=== PATIENT | male | born 1960 | race Caucasian/White ===

== ENCOUNTER 2017-06-17 18:50 | Observation (INO) | payer OTHER ==
[~2017-06-17] VITALS: Ht 172.7 cm; Wt 80.7 kg
[2017-06-17 19:03] VITALS: BP 148/69; PULSE 96; RESP 18; TEMP 98.2; O2SAT 95
[2017-06-17 19:34] LABS: BASOPHIL # 0.1 TH/MM3 (0-0.2); BASOPHIL % 0.7 % (0.0-2.0); EOSINOPHIL # 0.2 TH/MM3 (0-0.4); EOSINOPHIL % 2.2 % (0.0-4.0); HEMATOCRIT 36.9 % (39.0-51.0); HEMO FLAGS DIFF FINAL; LYMPH % 23.7 % (9.0-44.0); LYMPHOCYTE # 1.8 TH/MM3 (1.0-4.8); MEAN CELL VOLUME 84.9 FL (80.0-100.0); MEAN CORPUSCULAR HEMOGLOBIN 28.5 PG (27.0-34.0); MEAN CORPUSCULAR HGB CONC 33.5 % (32.0-36.0); MONO % 7.4 % (0.0-8.0); PLATELET COUNT 175 TH/MM3 (150-450); RED BLOOD COUNT 4.35 MIL/MM3 (4.50-5.90); RED CELL DISTRIBUTION WIDTH 13.9 % (11.6-17.2); WHITE BLOOD COUNT 7.5 TH/MM3 (4.0-11.0)
--- NOTE | 2017-06-17 19:40 | PD ---
HPI Chief Complaint: Psychiatric Symptoms Time Seen by Provider: 19:14 Travel History International Travel<30 days: No Contact w/Intl Traveler<30days: No Traveled to known affect area: No History of Present Illness HPI 56-year-old male presents to the emergency department under Ybarra act by physician for psychiatric evaluation. Patient has history of expressive aphasia. Apparently, he has been combative and aggressive at the facility that he lives in. The patient can answer yes or no questions, but cannot give any other meaningful history. Patient has history of hypertension, hyperlipidemia, psychosis, dementia and behavioral disturbances, bipolar disorder, type 2 diabetes, expressive aphasia. History was obtained through records sent from facility. PFSH Past Medical History Bipolar Disorder: Yes Anxiety: Yes Depression: Yes Diabetes: Yes Patient Takes Glucophage: No Hypertension: Yes Social History Alcohol Use: No Tobacco Use: No Substance Use: No Allergies-Medications (Allergen,Severity, Reaction): Coded Allergies: No Known Allergies (Unverified , 06/17/17) Reported Meds & Prescriptions Reported Meds & Active Scripts Active Reported Quetiapine (Quetiapine Fumarate) 50 Mg Tab 50 Mg PO DAILY Quetiapine (Quetiapine Fumarate) 25 Mg Tab 300 Mg PO HS Metformin (Metformin HCl) 500 Mg Tab 500 Mg PO BIDPC With meals Lorazepam 1 Mg Tab 1 Mg ID Q6H PRN Keppra (Levetiracetam) 500 Mg Tab 500 Mg PO BID Humalog Inj (Insulin Human Lispro) 1,000 Unit/10 Ml Vial 5-25 Units SQ ACHS Max dose at bedtime:( )units; sugars < 70,(0)units; sugars 150-199,(5)units; sugars 200-249,(10)units; sugars 250-299,(15)units; sugars 300-349,(20)units; sugars more than 349,(25)units. Diphenhydramine (Diphenhydramine HCl) 25 Mg Tab 25 Mg PO Q6H PRN Depakote Sprinkles (Divalproex Sodium) 125 mg Cap 125 Mg PO BID Clopidogrel (Clopidogrel Bisulfate) 75 Mg Tab 75 Mg PO DAILY Atorvastatin (Atorvastatin Calcium) 20 Mg Tab 20 Mg PO HS Review of Systems Except as stated in HPI: all other systems reviewed are Neg Physical Exam Narrative GENERAL: Well-nourished, well-developed male patient, afebrile. SKIN: Focused skin assessment warm/dry. HEAD: Normocephalic. Atraumatic. EYES: No scleral icterus. No injection or drainage. NECK: Supple, trachea midline. No JVD or lymphadenopathy. CARDIOVASCULAR: Regular rate and rhythm without murmurs, gallops, or rubs. RESPIRATORY: Breath sounds equal bilaterally. No accessory muscle use. Lungs sounds are clear to auscultation GASTROINTESTINAL: Abdomen soft, non-tender, nondistended. MUSCULOSKELETAL: No cyanosis, or edema. BACK: Nontender without obvious deformity. No CVA tenderness. Data Data Last Documented VS Vital Signs Date Time Temp Pulse Resp B/P (MAP) Pulse Ox O2 Delivery O2 Flow Rate FiO2 06/17/17 19:03 98.2 96 18 148/69 (95) 95 Orders Orders Complete Blood Count With Diff (06/17/17 19:14) Comprehensive Metabolic Panel (06/17/17 19:14) Urinalysis - C+S If Indicated (06/17/17 19:14) Psych Screen (06/17/17 19:14) Drug Screen, Random Urine (06/17/17 19:14) Valproic Acid (Depakene) (06/17/17 19:29) Ammonia (06/17/17 19:29) Cath For Specimen (06/17/17 19:58) Lactulose Liq (Lactulose Liq) (06/17/17 20:30) Labs Laboratory Tests Test 06/17/17 19:22 06/17/17 19:37 06/17/17 19:39 06/17/17 20:00 White Blood Count 7.5 TH/MM3 Red Blood Count 4.35 MIL/MM3 Hemoglobin 12.4 GM/DL Hematocrit 36.9 % Mean Corpuscular Volume 84.9 FL Mean Corpuscular Hemoglobin 28.5 PG Mean Corpuscular Hemoglobin Concent 33.5 % Red Cell Distribution Width 13.9 % Platelet Count 175 TH/MM3 Mean Platelet Volume 7.9 FL Neutrophils (%) (Auto) 66.0 % Lymphocytes (%) (Auto) 23.7 % Monocytes (%) (Auto) 7.4 % Eosinophils (%) (Auto) 2.2 % Basophils (%) (Auto) 0.7 % Neutrophils # (Auto) 5.0 TH/MM3 Lymphocytes # (Auto) 1.8 TH/MM3 Monocytes # (Auto) 0.6 TH/MM3 Eosinophils # (Auto) 0.2 TH/MM3 Basophils # (Auto) 0.1 TH/MM3 CBC Comment DIFF FINAL Differential Comment Blood Urea Nitrogen 20 MG/DL Creatinine 0.89 MG/DL Random Glucose 157 MG/DL Total Protein 7.7 GM/DL Albumin 3.6 GM/DL Calcium Level 9.4 MG/DL Alkaline Phosphatase 49 U/L Aspartate Amino Transf (AST/SGOT) 46 U/L Alanine Aminotransferase (ALT/SGPT) 69 U/L Total Bilirubin 0.3 MG/DL Sodium Level 139 MEQ/L Potassium Level 3.7 MEQ/L Chloride Level 103 MEQ/L Carbon Dioxide Level 29.2 MEQ/L Anion Gap 7 MEQ/L Estimat Glomerular Filtration Rate 89 ML/MIN Ammonia 47 MCMOL/L Valproic Acid (Depakene) Level 57 MCG/ML Urine Opiates Screen NEG Urine Barbiturates Screen NEG Urine Amphetamines Screen NEG Urine Benzodiazepines Screen NEG Urine Cocaine Screen NEG Urine Cannabinoids Screen NEG MDM Medical Decision Making Medical Screen Exam Complete: Yes Emergency Medical Condition: Yes Medical Record Reviewed: Yes Differential Diagnosis Dementia versus depression versus anxiety versus electrolyte abnormality versus psychosis Narrative Course 56-year-old male presents to the emergency department from nursing facility under Ybarra act for psychiatric evaluation. History is obtained through nursing records. CBC, CMP, alcohol level, urine drug screen, Depakote level, ammonia level, UA are ordered and pending. CBC shows no acute abnormality. CMP shows glucose 157, AST 46. Ammonia level is 47. UDS is negative. UA is negative for acute infection. Depakote level is 57. Lactulose 30 mls is given. [facility] is paged for admission. I spoke to Dr. Kellogg who recommends the patient receive one dose of lactulose and be medically cleared for psych to see him. Patient is medically cleared for psychiatric screening and disposition. Diagnosis Primary Impression: Hyperammonemia Additional Impression: Dementia Qualified Codes: F03.91 - Unspecified dementia with behavioral disturbance Additional Instructions: Patient is medically cleared for psychiatric screening and disposition. Condition: Stable Sherry Vargas SKYLA Jun 17, 2017 19:40
[2017-06-17] MEDS ORDERED: DIVA125C PO (19:47)
[2017-06-17] MEDS ORDERED: LORA1TAB12 ID (19:47)
[2017-06-17] MEDS ORDERED: HUMALOG SQ (19:47)
[2017-06-17] MEDS ORDERED: LEVE500 PO (19:47)
[2017-06-17] MEDS ORDERED: ATOR20TA15 PO (19:47)
[2017-06-17] MEDS ORDERED: DIPH25TA2 PO (19:47)
[2017-06-17] MEDS ORDERED: CLOP75TA PO (19:47)
[2017-06-17 19:49] LABS: ALT (GPT) 69 U/L (12-78); ANION GAP 7 MEQ/L (5-15); AST (GOT) 46 U/L (15-37); BICARBONATE 29.2 MEQ/L (21.0-32.0); BLOOD UREA NITROGEN 20 MG/DL (7-18); CHLORIDE 103 MEQ/L (98-107); GLOMERULAR FILTRATION RATE 89 ML/MIN (>89); POTASSIUM 3.7 MEQ/L (3.5-5.1); SODIUM (NA) 139 MEQ/L (136-145)
[2017-06-17] MEDS ORDERED: QUET5TAB PO (19:50)
[2017-06-17] MEDS ORDERED: QUET1TAB7 PO (19:50)
[2017-06-17] MEDS ORDERED: METF500T PO (19:50)
[2017-06-17 19:52] LABS: ALKALINE PHOSPHATASE 49 U/L (45-117); TOTAL BILIRUBIN ADULT 0.3 MG/DL (0.2-1.0)
[2017-06-17] MEDS ORDERED: LACTULOSE SYRUP 20 GM/30 ML CUP PO ONE (20:30)
[2017-06-17 20:42] LABS: BLOOD, URINE NEG (NEG); COMMENT (UR) CULT NOT INDICATED; CULTURE IF INDICATED CULT NOT INDICATED; GLUCOSE,URINE 70 mg/dL (NEG); KETONE, URINE 10 mg/dL (NEG); NITRITE,URINE NEG (NEG); URINE COLOR YELLOW (YELLW/STRAW)
[2017-06-17 22:41] VITALS: PULSE 97
[2017-06-18 00:21] VITALS: BP 132/78; PULSE 92; RESP 18; O2SAT 96
[2017-06-18 05:59] VITALS: BP 134/69; PULSE 69; RESP 18; O2SAT 96
[2017-06-18 09:01] VITALS: BP 148/70; PULSE 62; RESP 18; O2SAT 95
[2017-06-18 12:30] VITALS: BP 137/76; PULSE 67; RESP 18; O2SAT 98
[2017-06-18 16:30] VITALS: BP 131/69; PULSE 71; RESP 18; O2SAT 98
--- NOTE | 2017-06-18 18:15 | PD ---
History of Present Illness Chief Complaint: Psychiatric Symptoms Time Seen by Provider: 17:45 Travel History International Travel<30 Days: No Contact w/Intl Traveler<30days: No Known affected area: No Legal Status Legal Status: Ybarra Act Ybarra Act Signed By: DR MIKKI RODRIGUES History of Present Illness: History of Present Illness HPI 56-year-old male with expressive aphasia and reported history of bipolar disorder, unspecified psychosis, anxiety who presents to the emergency department under Ybarra act by non- psychiatric physician for psychiatric evaluation. The Ybarra act alleges that he has been" agitated, has been striking at staff, throwing objects, throwing self on the floor, dangerous to staff and others. The patient can answer yes or no questions, but cannot give any other meaningful history. History was obtained through records sent from facility. Since the patient has been here he has not required any ETOs and has been able to be verbally redirected. EMR reviewed. No previous contact with [facility]. Current laboratory is significant for Increase ammonia level and patient did receive lactulose. His current VPA level is 57. Patient is seen in main Ed. He is awake and alert. He responds to his name called. He knows he is in a hospital. He answers to yes no questions posed to him. He answers yes to feeling frustrated and felling sad. as well as feeling angry. He answers no to questions regarding wanting to hurt himself or hurt others. Answers no to hearing voices and does not appear to be internally preoccupied. I reviewed his current psychiatric medications and patient is taking 350 mg of Seroquel, Ativan 1 mg po q 6 , prn but negative on toxicology . He is also on Depakote 125 mg po BID which is indicated for treatment of tarsha in bipolar disorder . I also note he is on Keppra so there may be a dx of seizure disorder. PFSH Past Medical History Bipolar Disorder: Yes Anxiety: Yes Depression: Yes Cerebrovascular Accident: Yes Dementia: Yes Diabetes: Yes Patient Takes Glucophage: No Diminished Hearing: No Hepatitis: Yes (c) Hypertension: Yes Seizures: Yes Tetanus Vaccination: Unknown ?: Not Psychiatric History Psychiatric History Hx Psychiatric Treatment: HX OF ANXIETY/BIPOLAR/UNSPECIFIED PSYCHOSIS as per records History of Inpatient Treatment: Yes Guns or firearms in home: No Social History [facility]ident of [facility] Hx Alcohol Use: No Hx Tobacco Use: No Hx Substance Use: No Hx of Substance Use Treatment: No Family Psychiatric History unable to obtain Allergies-Medications (Allergen,Severity, Reaction): Coded Allergies: No Known Allergies (Unverified , 06/17/17) Reported Meds & Prescriptions Reported Meds & Active Scripts Active Reported Quetiapine (Quetiapine Fumarate) 50 Mg Tab 50 Mg PO DAILY Quetiapine (Quetiapine Fumarate) 25 Mg Tab 300 Mg PO HS Metformin (Metformin HCl) 500 Mg Tab 500 Mg PO BIDPC With meals Lorazepam 1 Mg Tab 1 Mg ID Q6H PRN Keppra (Levetiracetam) 500 Mg Tab 500 Mg PO BID Humalog Inj (Insulin Human Lispro) 1,000 Unit/10 Ml Vial 5-25 Units SQ ACHS Max dose at bedtime:( )units; sugars < 70,(0)units; sugars 150-199,(5)units; sugars 200-249,(10)units; sugars 250-299,(15)units; sugars 300-349,(20)units; sugars more than 349,(25)units. Diphenhydramine (Diphenhydramine HCl) 25 Mg Tab 25 Mg PO Q6H PRN Depakote Sprinkles (Divalproex Sodium) 125 mg Cap 125 Mg PO BID Clopidogrel (Clopidogrel Bisulfate) 75 Mg Tab 75 Mg PO DAILY Atorvastatin (Atorvastatin Calcium) 20 Mg Tab 20 Mg PO HS Review of Systems ROS Limitations: Other (pat w expresive aphasia) Exam Alert: Yes [place]: Person, Place Mood: Other (restless at times) Affect: Labile Speech: Slurred (patietn w expressive aphasia. answers yes no only) Eye Contact: Normal Memory Intact: Comment (unable to tets) Hallucinations: Other (does not appera to be repsonding to) Suicidal: Ideation (he denies) Homicidal: Ideation (denies) Insight/Judgement unable to determine MDM Medical Decision Making Medical Record Reviewed: Yes Assessment/Plan HPI 56-year-old male with expressive aphasia and reported history of bipolar disorder, unspecified psychosis, anxiety who presents to the emergency department under Ybarra act by non- psychiatric physician for psychiatric evaluation. The Ybarra act alleges that he has been" agitated, has been striking at staff, throwing objects, throwing self on the floor, dangerous to staff and others. The patient can answer yes or no questions, but cannot give any other meaningful history. History was obtained through records sent from facility. Since the patient has been here he has not required any ETOs and has been able to be verbally redirected I have discussed case w ED provider, Ms Seo. She will reevaluate patient and obtain further labs. Pending these results a determination either to admit medically with a psych consult, or have patient remain in Ed and wait for a bed in psychiatry since there are no beds available at this time. Orders Orders Complete Blood Count With Diff (06/17/17 19:14) Comprehensive Metabolic Panel (06/17/17 19:14) Urinalysis - C+S If Indicated (06/17/17 19:14) Psych Screen (06/17/17 19:14) Drug Screen, Random Urine (06/17/17 19:14) Valproic Acid (Depakene) (06/17/17 19:29) Ammonia (06/17/17 19:29) Cath For Specimen (06/17/17 19:58) Lactulose Liq (Lactulose Liq) (06/17/17 20:30) Diet Regular Basic (06/18/17 Breakfast) Diet Regular Basic (06/18/17 Lunch) Comprehensive Metabolic Panel (06/18/17 17:59) Ammonia (06/18/17 17:59) Act Partial Throm Time (Ptt) (06/18/17 18:05) Prothrombin Time / Inr (Pt) (06/18/17 18:05) Results Vital Signs Date Time Temp Pulse Resp B/P (MAP) Pulse Ox O2 Delivery O2 Flow Rate FiO2 06/18/17 09:01 62 18 148/70 (96) 95 Room Air 06/18/17 05:59 69 18 134/69 (90) 96 06/18/17 00:21 92 18 132/78 (96) 96 06/17/17 22:41 97 06/17/17 19:03 98.2 96 18 148/69 (95) 95 Laboratory Tests Test 06/17/17 19:22 06/17/17 19:37 06/17/17 19:39 06/17/17 20:00 White Blood Count 7.5 Red Blood Count 4.35 Hemoglobin 12.4 Hematocrit 36.9 Mean Corpuscular Volume 84.9 Mean Corpuscular Hemoglobin 28.5 Mean Corpuscular Hemoglobin Concent 33.5 Red Cell Distribution Width 13.9 Platelet Count 175 Mean Platelet Volume 7.9 Neutrophils (%) (Auto) 66.0 Lymphocytes (%) (Auto) 23.7 Monocytes (%) (Auto) 7.4 Eosinophils (%) (Auto) 2.2 Basophils (%) (Auto) 0.7 Neutrophils # (Auto) 5.0 Lymphocytes # (Auto) 1.8 Monocytes # (Auto) 0.6 Eosinophils # (Auto) 0.2 Basophils # (Auto) 0.1 CBC Comment DIFF FINAL Differential Comment Blood Urea Nitrogen 20 Creatinine 0.89 Random Glucose 157 Total Protein 7.7 Albumin 3.6 Calcium Level 9.4 Alkaline Phosphatase 49 Aspartate Amino Transf (AST/SGOT) 46 Alanine Aminotransferase (ALT/SGPT) 69 Total Bilirubin 0.3 Sodium Level 139 Potassium Level 3.7 Chloride Level 103 Carbon Dioxide Level 29.2 Anion Gap 7 Estimat Glomerular Filtration Rate 89 Ammonia 47 Valproic Acid (Depakene) Level 57 Urine Color YELLOW Urine Turbidity CLEAR Urine pH 7.0 Urine Specific [place] 1.019 Urine Protein NEG Urine Glucose (UA) 70 Urine Ketones 10 Urine Occult Blood NEG Urine Nitrite NEG Urine Bilirubin NEG Urine Urobilinogen 8.0 Urine Leukocyte Esterase NEG Urine WBC 2 Microscopic Urinalysis Comment CULT NOT INDICATED Urine Opiates Screen NEG Urine Barbiturates Screen NEG Urine Amphetamines Screen NEG Urine Benzodiazepines Screen NEG Urine Cocaine Screen NEG Urine Cannabinoids Screen NEG Diagnosis Primary Impression: Hyperammonemia Additional Impressions: Dementia Dementia with behavioral disturbance Departure Forms: Tests/Procedures Patient Instructions: General Instructions Additional Instructions: Patient is medically cleared for psychiatric screening and disposition. Condition: Stable Problem Qualifiers Additional Impressions: Dementia Qualified Codes: F03.91 - Unspecified dementia with behavioral disturbance Dementia with behavioral disturbance Qualified Codes: F03.91 - Unspecified dementia with behavioral disturbance Diamante Quinn Jun 18, 2017 18:15
[2017-06-18 19:27] LABS: ANION GAP 5 MEQ/L (5-15); AST (GOT) 39 U/L (15-37); BICARBONATE 30.7 MEQ/L (21.0-32.0); BLOOD UREA NITROGEN 13 MG/DL (7-18); CHLORIDE 104 MEQ/L (98-107); GLOMERULAR FILTRATION RATE 102 ML/MIN (>89); POTASSIUM 3.8 MEQ/L (3.5-5.1); SODIUM (NA) 140 MEQ/L (136-145)
[2017-06-18 19:28] LABS: ALT (GPT) 68 U/L (12-78)
[2017-06-18 19:30] LABS: ALKALINE PHOSPHATASE 47 U/L (45-117); TOTAL BILIRUBIN ADULT 0.4 MG/DL (0.2-1.0)
[2017-06-18 19:36] LABS: APTT (PATIENT) 26.2 SEC (24.3-30.1); PROTHROMBIN TIME - PATIENT 11.3 SEC (9.8-11.6)
[2017-06-18 20:00] VITALS: BP 135/70; PULSE 77; RESP 16; TEMP 98.8; O2SAT 98
[2017-06-19 05:47] VITALS: BP 128/65; PULSE 70; RESP 17; TEMP 98.6; O2SAT 98
[2017-06-19 11:00] VITALS: BP 132/62; PULSE 70; RESP 20; O2SAT 100
[2017-06-19] MEDS ORDERED: LORazepam 1 MG TAB PO ONE (12:45)
--- NOTE | 2017-06-19 15:43 | PD ---
History of Present Illness Chief Complaint: Psychiatric Symptoms Time Seen by Provider: 15:30 Travel History International Travel<30 Days: No Contact w/Intl Traveler<30days: No Known affected area: No Legal Status Legal Status: Ybarra Act Ybarra Act Signed By: DR MIKKI RODRIGUES History of Present Illness: Patient seen at bedside and interviewed with nurse Sarah. Medical record reviewed including note of Ms. VarelagasSKYLA. Patient's problems appear to be neurological in origin and he is aphasic, incontinent of urine and bowels, at times frustrated and emotionally labile, etc. While this physician understands the patient is unable to care for himself and requires ongoing assistance, this physician is unable to treat the patient's issues. Although the patient may have had a previous diagnosis of bipolar disorder, there is no sustained alteration in mood at this time and in fact, the patient is emotionally labile from second to second. This is more consistent with a neurological disorder than a psychiatric one. Patient is not trying to indicate that he is suicidal or homicidal. No evidence of psychotic thinking. Cognition is impaired but felt to be the result of his neurological deficits. PFSH Past Medical History Bipolar Disorder: Yes Anxiety: Yes Depression: Yes Cerebrovascular Accident: Yes Dementia: Yes Diabetes: Yes Patient Takes Glucophage: No Diminished Hearing: No Hepatitis: Yes (c) Hypertension: Yes Seizures: Yes Tetanus Vaccination: Unknown ?: Not Psychiatric History Psychiatric History Hx Psychiatric Treatment: HX OF ANXIETY/BIPOLAR/UNSPECIFIED PSYCHOSIS as per records. This physician does not see significant objective clinical evidence of bipolar disorder, psychosis or anxiety at this time. History of Inpatient Treatment: Yes Guns or firearms in home: No Social History Hx Alcohol Use: No Hx Tobacco Use: No Hx Substance Use: No Hx of Substance Use Treatment: No Allergies-Medications (Allergen,Severity, Reaction): Coded Allergies: No Known Allergies (Unverified , 06/17/17) Reported Meds & Prescriptions Reported Meds & Active Scripts Active Reported Quetiapine (Quetiapine Fumarate) 50 Mg Tab 50 Mg PO DAILY Quetiapine (Quetiapine Fumarate) 25 Mg Tab 300 Mg PO HS Metformin (Metformin HCl) 500 Mg Tab 500 Mg PO BIDPC With meals Lorazepam 1 Mg Tab 1 Mg ID Q6H PRN Keppra (Levetiracetam) 500 Mg Tab 500 Mg PO BID Humalog Inj (Insulin Human Lispro) 1,000 Unit/10 Ml Vial 5-25 Units SQ ACHS Max dose at bedtime:( )units; sugars < 70,(0)units; sugars 150-199,(5)units; sugars 200-249,(10)units; sugars 250-299,(15)units; sugars 300-349,(20)units; sugars more than 349,(25)units. Diphenhydramine (Diphenhydramine HCl) 25 Mg Tab 25 Mg PO Q6H PRN Depakote Sprinkles (Divalproex Sodium) 125 mg Cap 125 Mg PO BID Clopidogrel (Clopidogrel Bisulfate) 75 Mg Tab 75 Mg PO DAILY Atorvastatin (Atorvastatin Calcium) 20 Mg Tab 20 Mg PO HS Review of Systems Except as stated in HPI: all other systems reviewed are Neg Exam Alert: Yes [place]: Person Mood: Calm Affect: Labile Speech: Slurred Eye Contact: Normal Insight/Judgement Impaired MDM Medical Decision Making Medical Record Reviewed: Yes Assessment/Plan Patient interviewed, medical record reviewed, and case discussed with nurse. Although the patient is unable to care for himself, this is the result of a neurological disturbance. This physician does not see a treatable psychiatric disorder such as bipolar disorder or psychosis at this time. Patient is not trying to harm himself or anyone else. He does not express suicidal or homicidal thinking or behavior. He does not express psychotic thinking or behavior. This physician does not have anything to offer this gentleman by inpatient psychiatric hospitalization. Orders Orders Comprehensive Metabolic Panel (06/18/17 17:59) Ammonia (06/18/17 17:59) Act Partial Throm Time (Ptt) (06/18/17 18:05) Prothrombin Time / Inr (Pt) (06/18/17 18:05) Diet Regular Basic (06/19/17 Breakfast) Diet Regular Basic (06/19/17 Lunch) Lorazepam (Ativan) (06/19/17 12:45) Results Vital Signs Date Time Temp Pulse Resp B/P (MAP) Pulse Ox O2 Delivery O2 Flow Rate FiO2 06/19/17 05:47 98.6 70 17 128/65 (86) 98 Room Air 06/18/17 20:00 98.8 77 16 135/70 (91) 98 Room Air 06/18/17 16:30 71 18 131/69 (89) 98 Room Air Laboratory Tests Test 06/18/17 18:33 Prothrombin Time 11.3 Prothromb Time International Ratio 1.0 Activated Partial Thromboplast Time 26.2 Blood Urea Nitrogen 13 Creatinine 0.79 Random Glucose 149 Total Protein 7.9 Albumin 3.7 Calcium Level 9.2 Alkaline Phosphatase 47 Aspartate Amino Transf (AST/SGOT) 39 Alanine Aminotransferase (ALT/SGPT) 68 Total Bilirubin 0.4 Sodium Level 140 Potassium Level 3.8 Chloride Level 104 Carbon Dioxide Level 30.7 Anion Gap 5 Estimat Glomerular Filtration Rate 102 Ammonia 47 Diagnosis Primary Impression: Dementia with behavioral disturbance Departure Forms: Tests/Procedures Patient Instructions: General Instructions Additional Instructions: Patient is medically cleared for psychiatric screening and disposition. Condition: Stable Landon Drummond MD Jun 19, 2017 15:43
--- NOTE | 2017-06-19 16:48 | HHI.HP ---
[facility] Primary Care Physician Unknown Admission Diagnosis Diagnoses: Chief Complaint: Psychiatric Symptoms Travel History International Travel<30 Days: No Contact w/Intl Traveler <30 Da: No Traveled to Known Affected Are: No History of Present Illness This is a pleasant 56 y/o Male who was brought to ER Ybarra Acted by Physician for Psychiatric evaluation, Patient has history of expressive aphasia. Apparently, he has been combative and aggressive at the facility that he lives in. The patient can answer yes or no questions, but cannot give any other meaningful history. Patient has history of hypertension, hyperlipidemia, psychosis, dementia and behavioral disturbances, bipolar disorder, type 2 diabetes, expressive aphasia. History was obtained through records sent from facility. He was admitted to ER on 06/17/17 has more than 48 hours in this facility. Discussed with Doctor Kaur in ER and he states the patient has chronic issues and will be admitted due to Social issues he does need a Airfield Services Officer evaluation and was not accepted back on his facility after Psychiatry specialist removed his Ybarra act. as per Psychiatry specialist the patient has Expressive aphasia, reported history of bipolar disorder, unspecified psychosis, anxiety who presents to the emergency department under Ybarra act by non- psychiatric physician for psychiatric evaluation. The Ybarra act alleges that he has been" agitated, has been striking at staff, throwing objects, throwing self on the floor, dangerous to staff and others. The patient can answer yes or no questions, but cannot give any other meaningful history. History was obtained through records sent from facility. after Psychiatry specialist reviewed his medicines found that he is on Keppra and may be having Seizure disorder. with diagnosis of Unspecified Dementia with Behavioral Disturbance. as per Psychiatry specialist Doctor Landon Drummond, the patient's apparent problems appear to be neurological in origin, incontinent of Urine and bowels, the patient is unable to care for himself and requires ongoing assistance, Not seen by Psychiatry any treatable Psychiatric condition, such as bipolar disorder or psychosis at this time. Patient is not trying to harm himself or anyone else. He does not express suicidal or homicidal thinking or behavior. He does not express psychotic thinking or behavior. This physician does not have anything to offer this gentleman by inpatient psychiatric hospitalization. Seen in ER difficult to obtain history from him but is able to tell me he has no family and also that he is able to walk, will get PT evaluation and Airfield Services Officer on the case, Review of Systems Constitutional: DENIES: Fever, Chills, Change in appetite Endocrine: DENIES: Heat/cold intolerance Eyes: DENIES: Blurred vision, Eye pain Except as stated in HPI: all other systems reviewed are Neg Past Family Social History Past Medical History Bipolar disorder Anxiety disorder Depression DM II Hypertension CVA Hepatitis C Unspecified Dementia with Behavioral Disturbance. Past Surgical History Cataract Surgery Tonsillectomy Reported Medications Reported Meds & Active Scripts Active Reported Quetiapine (Quetiapine Fumarate) 50 Mg Tab 50 Mg PO DAILY Quetiapine (Quetiapine Fumarate) 25 Mg Tab 300 Mg PO HS Metformin (Metformin HCl) 500 Mg Tab 500 Mg PO BIDPC With meals Lorazepam 1 Mg Tab 1 Mg ID Q6H PRN Keppra (Levetiracetam) 500 Mg Tab 500 Mg PO BID Humalog Inj (Insulin Human Lispro) 1,000 Unit/10 Ml Vial 5-25 Units SQ ACHS Max dose at bedtime:( )units; sugars < 70,(0)units; sugars 150-199,(5)units; sugars 200-249,(10)units; sugars 250-299,(15)units; sugars 300-349,(20)units; sugars more than 349,(25)units. Diphenhydramine (Diphenhydramine HCl) 25 Mg Tab 25 Mg PO Q6H PRN Depakote Sprinkles (Divalproex Sodium) 125 mg Cap 125 Mg PO BID Clopidogrel (Clopidogrel Bisulfate) 75 Mg Tab 75 Mg PO DAILY Atorvastatin (Atorvastatin Calcium) 20 Mg Tab 20 Mg PO HS Allergies: Coded Allergies: No Known Allergies (Unverified , 06/17/17) Active Ordered Medications Current Medications Medications (Trade) Dose Ordered Sig/Analia Route Start Time Stop Time Status Last Admin (NS Flush) 2 ml UNSCH PRN IV FLUSH 06/19/17 17:00 (NS Flush) 2 ml BID IV FLUSH 06/19/17 21:00 (Tylenol) 650 mg Q4H PRN PO 06/19/17 17:00 (Zofran Inj) 4 mg Q6H PRN IVP 9/24/17 17:00 (Narcan Inj) 0.4 mg UNSCH PRN IV PUSH 06/19/17 17:00 (Ella-Colace) 1 tab BID PO 06/19/17 21:00 (Milk Of Magnesia Liq) 30 ml Q12H PRN PO 06/19/17 17:00 (Senokot) 17.2 mg Q12H PRN PO 06/19/17 17:00 (Dulcolax Supp) 10 mg DAILY PRN RECTAL 06/19/17 17:00 (Lactulose Liq) 30 ml DAILY PRN PO 06/19/17 17:00 (Lipitor) 20 mg HS PO 06/19/17 21:00 (Plavix) 75 mg DAILY PO 06/20/17 09:00 (Depakote Sprinkles) 125 mg BID PO 06/19/17 21:00 (Keppra) 500 mg BID PO 06/19/17 21:00 (SEROquel) 300 mg HS PO 06/19/17 21:00 (NovoLIN R SUPPLEMENTAL SCALE) 1 ACHS SLIDING SCALE SQ 06/19/17 17:00 Family History Not able to obtain information Social History Denies any toxic habits. Physical Exam Vital Signs Vital Signs Date Time Temp Pulse Resp B/P (MAP) Pulse Ox O2 Delivery O2 Flow Rate FiO2 06/19/17 05:47 98.6 70 17 128/65 (86) 98 Room Air 06/18/17 20:00 98.8 77 16 135/70 (91) 98 Room Air Physical Exam GENERAL: Well-nourished, well-developed male patient, afebrile. SKIN: Focused skin assessment warm/dry. HEAD: Normocephalic. Atraumatic. EYES: No scleral icterus. No injection or drainage. NECK: Supple, trachea midline. No JVD or lymphadenopathy. CARDIOVASCULAR: Regular rate and rhythm without murmurs, gallops, or rubs. RESPIRATORY: Breath sounds equal bilaterally. No accessory muscle use. Lungs sounds are clear to auscultation GASTROINTESTINAL: Abdomen soft, non-tender, nondistended. MUSCULOSKELETAL: No cyanosis, or edema. BACK: Nontender without obvious deformity. No CVA tenderness. NEUROLOGY: Right Upper arm flexed, Paretic, Aphasia. Laboratory Laboratory Tests Test 06/18/17 18:33 Prothrombin Time 11.3 Prothromb Time International Ratio 1.0 Activated Partial Thromboplast Time 26.2 Blood Urea Nitrogen 13 Creatinine 0.79 Random Glucose 149 Total Protein 7.9 Albumin 3.7 Calcium Level 9.2 Alkaline Phosphatase 47 Aspartate Amino Transf (AST/SGOT) 39 Alanine Aminotransferase (ALT/SGPT) 68 Total Bilirubin 0.4 Sodium Level 140 Potassium Level 3.8 Chloride Level 104 Carbon Dioxide Level 30.7 Anion Gap 5 Estimat Glomerular Filtration Rate 102 Ammonia 47 Result Diagram: 06/17/17192106/18/171832 Caprini VTE Risk Assessment Caprini VTE Risk Assessment: Mod/High Risk (score >= 2) Caprini Risk Assessment Model Point Value = 1 Point Value = 2 Point Value = 3 Point Value = 5 Age 41-60 Minor surgery BMI > 25 kg/m2 Swollen legs Varicose veins or History of unexplained or recurrent spontaneous Oral contraceptives or hormone replacement Sepsis (< 1 month) Serious lung disease, including pneumonia (< 1 month) Abnormal pulmonary function Acute myocardial infarction Congestive heart failure (< 1 month) History of inflammatory bowel disease Medical patient at bed rest Age 61-74 Arthroscopic surgery Major open surgery (> 45 min) Laparoscopic surgery (> 45 min) Malignancy Confined to bed (> 72 hours) Immobilizing plaster cast Central venous access Age >= 75 History of VTE Family history of VTE Factor V Leiden Prothrombin [id number] Lupus anticoagulant Anticardiolipin antibodies Elevated serum homocysteine Heparin-induced thrombocytopenia Other congenital or acquired thrombophilia Stroke (< 1 month) Elective arthroplasty Hip, pelvis, or leg fracture Acute spinal cord injury (< 1 month) Prophylaxis Regimen Total Risk Factor Score Risk Level Prophylaxis Regimen 0-1 Low Early ambulation 2 Moderate Order ONE of the following: *Sequential Compression Device (SCD) *Heparin 5000 units SQ BID 3-4 Higher Order ONE of the following medications: *Heparin 5000 units SQ TID *Enoxaparin/Lovenox 40 mg SQ daily (WT < 150 kg, CrCl > 30 mL/min) *Enoxaparin/Lovenox 30 mg SQ daily (WT < 150 kg, CrCl > 10-29 mL/min) *Enoxaparin/Lovenox 30 mg SQ BID (WT < 150 kg, CrCl > 30 mL/min) AND/OR *Sequential Compression Device (SCD) 5 or more Highest Order ONE of the following medications: *Heparin 5000 units SQ TID (Preferred with Epidurals) *Enoxaparin/Lovenox 40 mg SQ daily (WT < 150 kg, CrCl > 30 mL/min) *Enoxaparin/Lovenox 30 mg SQ daily (WT < 150 kg, CrCl > 10-29 mL/min) *Enoxaparin/Lovenox 30 mg SQ BID (WT < 150 kg, CrCl > 30 mL/min) AND *Sequential Compression Device (SCD) Assessment and Plan Assessment and Plan 1. Unspecified Dementia with Behavioral Disturbances, cleared by Psychiatry specialist did not found any treatable disease Ybarra act. will continue Home medicines and asked for Airfield Services Officer and PT for placement 2. Bipolar Disorder/Anxiety disorder/Depression to continue Home medicines 3. DM II continue sliding scale on hold Metformin and get Hemoglobin A1C. 4. Hypertension controlled. 5. CVA by history with evident focal deficits. 6. Hepatitis C as per Chart 7. Mild Hyperammonemia given Lactulose be sure to get daily bowel movement to avoid build up DVT prophylaxis with Lovenox GI protection with Famotidine. Code Status Full code. Discussed Condition With I had the Pleasure to talk about the case with Emergency Medicine Specialist Doctor Mirza Kaur Input and recommendations highly appreciated. Tong Cole MD Jun 19, 2017 16:48
[2017-06-19] MEDS ORDERED: ONDANSETRON HCL 4 MG/2 ML VIAL IVP PRN (17:00)
[2017-06-19] MEDS ORDERED: LACTULOSE SYRUP 20 GM/30 ML CUP PO PRN (17:00)
[2017-06-19] MEDS: INSULIN NovoLIN REGULAR SUPPLEMENTAL SCALE SQ SCH ×2 (17:00→21:00)
[2017-06-19] MEDS ORDERED: SODIUM CHLORIDE 0.9% FLUSH 10 ML FLUSH IV FLUSH PRN (17:00)
[2017-06-19] MEDS ORDERED: BISACODYL 10 MG SUPP RECTAL PRN (17:00)
[2017-06-19] MEDS ORDERED: SENNOSIDES 8.6 MG TAB PO PRN (17:00)
[2017-06-19] MEDS ORDERED: NALOXONE HCL 0.4 MG/ML AMP IV PUSH PRN (17:00)
[2017-06-19] MEDS ORDERED: ACETAMINOPHEN 325 MG TAB PO PRN (17:00)
[2017-06-19] MEDS ORDERED: MAGNESIUM HYDROXIDE SUSP 30 ML CUP PO PRN (17:00)
[2017-06-19 17:16] VITALS: BP 154/70; PULSE 74; RESP 20
[2017-06-19] MEDS: LACTULOSE SYRUP 20 GM/30 ML CUP PO SCH (17:30)
--- NOTE | 2017-06-19 17:39 | PD ---
Data Data Last Documented VS Vital Signs Date Time Temp Pulse Resp B/P (MAP) Pulse Ox O2 Delivery O2 Flow Rate FiO2 06/19/17 11:00 70 20 132/62 (85) 100 06/19/17 05:47 98.6 Room Air Orders Orders Complete Blood Count With Diff (06/17/17 19:14) Comprehensive Metabolic Panel (06/17/17 19:14) Urinalysis - C+S If Indicated (06/17/17 19:14) Psych Screen (06/17/17 19:14) Drug Screen, Random Urine (06/17/17 19:14) Valproic Acid (Depakene) (06/17/17 19:29) Ammonia (06/17/17 19:29) Cath For Specimen (06/17/17 19:58) Lactulose Liq (Lactulose Liq) (06/17/17 20:30) Diet Regular Basic (06/18/17 Breakfast) Diet Regular Basic (06/18/17 Lunch) Comprehensive Metabolic Panel (06/18/17 17:59) Ammonia (06/18/17 17:59) Act Partial Throm Time (Ptt) (06/18/17 18:05) Prothrombin Time / Inr (Pt) (06/18/17 18:05) Diet Regular Basic (06/19/17 Breakfast) Diet Regular Basic (06/19/17 Lunch) Lorazepam (Ativan) (06/19/17 12:45) Admit Order (Ed Use Only) (06/19/17 16:42) Labs Laboratory Tests Test 06/17/17 19:22 06/17/17 19:37 06/17/17 19:39 06/17/17 20:00 White Blood Count 7.5 TH/MM3 Red Blood Count 4.35 MIL/MM3 Hemoglobin 12.4 GM/DL Hematocrit 36.9 % Mean Corpuscular Volume 84.9 FL Mean Corpuscular Hemoglobin 28.5 PG Mean Corpuscular Hemoglobin Concent 33.5 % Red Cell Distribution Width 13.9 % Platelet Count 175 TH/MM3 Mean Platelet Volume 7.9 FL Neutrophils (%) (Auto) 66.0 % Lymphocytes (%) (Auto) 23.7 % Monocytes (%) (Auto) 7.4 % Eosinophils (%) (Auto) 2.2 % Basophils (%) (Auto) 0.7 % Neutrophils # (Auto) 5.0 TH/MM3 Lymphocytes # (Auto) 1.8 TH/MM3 Monocytes # (Auto) 0.6 TH/MM3 Eosinophils # (Auto) 0.2 TH/MM3 Basophils # (Auto) 0.1 TH/MM3 CBC Comment DIFF FINAL Differential Comment Blood Urea Nitrogen 20 MG/DL Creatinine 0.89 MG/DL Random Glucose 157 MG/DL Total Protein 7.7 GM/DL Albumin 3.6 GM/DL Calcium Level 9.4 MG/DL Alkaline Phosphatase 49 U/L Aspartate Amino Transf (AST/SGOT) 46 U/L Alanine Aminotransferase (ALT/SGPT) 69 U/L Total Bilirubin 0.3 MG/DL Sodium Level 139 MEQ/L Potassium Level 3.7 MEQ/L Chloride Level 103 MEQ/L Carbon Dioxide Level 29.2 MEQ/L Anion Gap 7 MEQ/L Estimat Glomerular Filtration Rate 89 ML/MIN Ammonia 47 MCMOL/L Valproic Acid (Depakene) Level 57 MCG/ML Urine Color YELLOW Urine Turbidity CLEAR Urine pH 7.0 Urine Specific [place] 1.019 Urine Protein NEG mg/dL Urine Glucose (UA) 70 mg/dL Urine Ketones 10 mg/dL Urine Occult Blood NEG Urine Nitrite NEG Urine Bilirubin NEG Urine Urobilinogen 8.0 MG/DL Urine Leukocyte Esterase NEG Urine WBC 2 /hpf Microscopic Urinalysis Comment CULT NOT INDICATED Urine Opiates Screen NEG Urine Barbiturates Screen NEG Urine Amphetamines Screen NEG Urine Benzodiazepines Screen NEG Urine Cocaine Screen NEG Urine Cannabinoids Screen NEG Test 06/18/17 18:33 Prothrombin Time 11.3 SEC Prothromb Time International Ratio 1.0 RATIO Activated Partial Thromboplast Time 26.2 SEC Blood Urea Nitrogen 13 MG/DL Creatinine 0.79 MG/DL Random Glucose 149 MG/DL Total Protein 7.9 GM/DL Albumin 3.7 GM/DL Calcium Level 9.2 MG/DL Alkaline Phosphatase 47 U/L Aspartate Amino Transf (AST/SGOT) 39 U/L Alanine Aminotransferase (ALT/SGPT) 68 U/L Total Bilirubin 0.4 MG/DL Sodium Level 140 MEQ/L Potassium Level 3.8 MEQ/L Chloride Level 104 MEQ/L Carbon Dioxide Level 30.7 MEQ/L Anion Gap 5 MEQ/L Estimat Glomerular Filtration Rate 102 ML/MIN Ammonia 47 MCMOL/L [facility] Medical Record Reviewed: Yes Supervised Visit with MILLIE: Yes Narrative Course CBC & BMP Diagram 06/17/17 19:22 Total Protein 7.7, Albumin 3.6, Calcium Level 9.4, Alkaline Phosphatase 49, Aspartate Amino Transf (AST/SGOT) 46 H, Alanine Aminotransferase (ALT/SGPT) 69, Total Bilirubin 0.3 06/18/17 18:33 Total Protein 7.9, Albumin 3.7, Calcium Level 9.2, Alkaline Phosphatase 47, Aspartate Amino Transf (AST/SGOT) 39 H, Alanine Aminotransferase (ALT/SGPT) 68, Total Bilirubin 0.4 Ammonia 47 UA: No UTI Ybarra Act lifted. Pt's facility has given the patient's bed to another patient. Case management consulted. Case d/w Dr Hernandez for [facility]. Diagnosis Primary Impression: Dementia with behavioral disturbance Patient Instructions: General Instructions Departure Forms: Tests/Procedures Additional Instruction: Patient is medically cleared for psychiatric screening and disposition. Condition: Stable Mirza Kaur MD Jun 19, 2017 17:39
[2017-06-19 19:33] VITALS: BP 136/65; PULSE 70; RESP 20; TEMP 98.6; O2SAT 99
[2017-06-19 20:23] VITALS: PULSE 62
[2017-06-19] MEDS: SODIUM CHLORIDE 0.9% FLUSH 10 ML FLUSH IV FLUSH SCH (21:00)
[2017-06-19] MEDS ORDERED: DOCUSATE SODIUM 50 MG/SENNA 8.6 MG TAB PO SCH (21:00)
[2017-06-19] MEDS: QUEtiapine FUMARATE 300 MG TAB PO SCH (21:36)
[2017-06-19] MEDS: levETIRAcetam 500 MG TAB PO SCH (21:36)
[2017-06-19] MEDS: ATORVASTATIN 20 MG TAB PO SCH (21:36)
[2017-06-19] MEDS: DIVALPROEX SODIUM SPRINKLES 125 MG CAP PO SCH (21:37)
[2017-06-19 23:33] VITALS: BP 111/65; PULSE 91; RESP 17; TEMP 98.7; O2SAT 95
[2017-06-20] VITALS (7 sets, daily range): BP systolic 91–116; BP diastolic 53–55; PULSE 50–83; RESP 16–19; TEMP 98.1–98.5; O2SAT 95–99
[2017-06-20] MEDS: INSULIN NovoLIN REGULAR SUPPLEMENTAL SCALE SQ SCH ×4 (08:00→21:00)
[2017-06-20] MEDS: CLOPIDOGREL 75 MG TAB PO SCH (08:44)
[2017-06-20] MEDS: DIVALPROEX SODIUM SPRINKLES 125 MG CAP PO SCH ×2 (08:44→19:21)
[2017-06-20] MEDS: SODIUM CHLORIDE 0.9% FLUSH 10 ML FLUSH IV FLUSH SCH ×2 (08:44→19:25)
[2017-06-20] MEDS: levETIRAcetam 500 MG TAB PO SCH ×2 (08:44→19:23)
[2017-06-20] MEDS: LACTULOSE SYRUP 20 GM/30 ML CUP PO SCH (08:45)
--- NOTE | 2017-06-20 10:21 | HHI.PR ---
Subjective Remarks Follow-up for dementia with agitation. Discussed with RN, the patient did have some episodes of agitation overnight. He did refuse some medications, but for the most part to his medications this morning. Apparently he was agitated with PT eval earlier. Upon evaluation, the patient is in his bed under the covers. He does respond whenever I call his name and after introducing myself, he pulls the covers over his head. He will not remove the covers from over his head for evaluation and yells loudly when I try to initiate a conversation. Objective Vitals Vital Signs Date Time Temp Pulse Resp B/P (MAP) Pulse Ox O2 Delivery O2 Flow Rate FiO2 06/20/17 07:31 56 06/20/17 04:00 67 06/20/17 03:52 98.1 74 19 91/53 (66) 95 06/20/17 00:01 83 06/19/17 23:33 98.7 91 17 111/65 (80) 95 06/19/17 20:23 62 06/19/17 19:33 98.6 70 20 136/65 (88) 99 06/19/17 17:57 06/19/17 17:16 74 20 154/70 (98) 06/19/17 11:00 70 20 132/62 (85) 100 I/O 06/19/17 06/19/17 06/19/17 06/20/17 06/20/17 06/20/17 07:00 15:00 23:00 07:00 15:00 23:00 Intake Total 240 ml Balance 240 ml Intake Oral 240 ml # Voids 1 1 # Bowel Movements 2 Result Diagram: 06/17/17192106/18/17 183 Objective Remarks GENERAL: In no acute distress. Refuses examination. NEUROLOGICAL: Awake and alert. Moves upper and lower extremities spontaneously. Yells loudly and nonsensical noises. PSYCHIATRIC: Intermittently agitated mood and guarded affect A/P Assessment and Plan 56-year-old male with a past medical history of CVA with residual aphasia, unspecified dementia, mood disorder, diabetes, HLD who was sent from SNF under Ybarra act for aggressive behavior. The patient was seen by psychiatry in the ED and Ybarra act was lifted as condition was felt to be more neurologic. The patient was medically cleared from the ED, however the patient's facility would not take him back. The patient was admitted to the hospitalist service due to chronic issues and social issues. Unspecified dementia with behavioral disturbances/reported history of anxiety and bipolar disorder: Presented under Ybarra act, lifted by psychiatry. Medical workup essentially unremarkable except for mildly elevated ammonia as below. Continue patient's home Depakote, Seroquel, and Ativan as needed. PT consulted. Reconsult psychiatry for assistance with psychotropic medications. Reported history of hepatitis C with elevated ammonia: LFTs are essentially within normal limits, however ammonia was elevated at 47. Started lactulose, although patient has been refusing some doses. Follow-up ammonia level. Diabetes mellitus: Metformin on hold. Monitor Accu-Cheks. Continue sliding scale coverage. History of CVA with reported residual expressive aphasia: Continue home Plavix and statin. DVT prophylaxis: SCDs CODE STATUS: Signed DNR is in the patient's chart from SNF Discharge Planning Discharge back to SNF when arranged. Yaw Hu Jun 20, 2017 10:21
[2017-06-20] MEDS: QUEtiapine FUMARATE 25 MG TAB PO SCH (11:14)
[2017-06-20] MEDS: ATORVASTATIN 20 MG TAB PO SCH (19:21)
[2017-06-20] MEDS: LORazepam 1 MG TAB PO PRN (19:21)
[2017-06-20] MEDS: QUEtiapine FUMARATE 300 MG TAB PO SCH (19:22)
[2017-06-21 00:40] VITALS: BP 103/56; PULSE 72; RESP 18; TEMP 98.2; O2SAT 96
[2017-06-21 04:19] VITALS: BP 103/63; PULSE 70; RESP 18; TEMP 98.4; O2SAT 96
[2017-06-21 07:26] VITALS: PULSE 67
[2017-06-21] MEDS: INSULIN NovoLIN REGULAR SUPPLEMENTAL SCALE SQ SCH ×4 (08:00→21:00)
[2017-06-21] MEDS: SODIUM CHLORIDE 0.9% FLUSH 10 ML FLUSH IV FLUSH SCH ×2 (09:00→20:22)
--- NOTE | 2017-06-21 10:03 | HHI.PR ---
Subjective Remarks Follow up for dementia with agitation. Patient awake, alert, however not oriented, with expressive aphasia. He denies any medical complaints including no headache, pain, chest pain, shortness of breath, or abdominal complaints. He is cooperative with exam today. Objective Vitals Vital Signs Date Time Temp Pulse Resp B/P (MAP) Pulse Ox O2 Delivery O2 Flow Rate FiO2 06/21/17 09:02 06/21/17 04:19 98.4 70 18 103/63 (76) 96 06/21/17 00:40 98.2 72 18 103/56 (72) 96 06/20/17 20:19 98.5 60 18 116/55 (75) 99 06/20/17 16:51 98.2 50 16 111/54 (73) 97 06/20/17 12:10 54 I/O 06/20/17 06/20/17 06/20/17 06/21/17 06/21/17 06/21/17 07:00 15:00 23:00 07:00 15:00 23:00 Intake Total 240 ml 200 ml Output Total 2 ml Balance 240 ml -2 ml 200 ml Intake Oral 240 ml 200 ml Stool Total 2 ml # Voids 1 3 # Bowel Movements 2 Result Diagram: 06/17/17192106/18/171832 Objective Remarks GENERAL: Well-nourished, well-developed middle aged male patient in [facility]. SKIN: Warm and dry. No rash. HEENT: Normocephalic. Atraumatic. Pupils equal and round. Mucous membranes pink and moist. CARDIOVASCULAR: Regular rate and rhythm. S1, S2 noted. No murmur appreciated. RESPIRATORY: No accessory muscle use. Clear to auscultation. Breath sounds equal bilaterally. GASTROINTESTINAL: Abdomen soft, non-tender, nondistended. Normoactive bowel sounds x4. MUSCULOSKELETAL: No obvious deformities. Extremities without clubbing, cyanosis , or edema. NEUROLOGICAL: Awake and alert. Right sided hemiparesis. Expressive aphasia. PSYCHIATRIC: Calm mood; insight and judgment poor. Medications and IVs Current Medications Medications (Trade) Dose Ordered Sig/Analia Route Start Time Stop Time Status Last Admin (NS Flush) 2 ml UNSCH PRN IV FLUSH 06/19/17 17:00 (NS Flush) 2 ml BID IV FLUSH 06/19/17 21:00 06/20/17 08:44 (Tylenol) 650 mg Q4H PRN PO 06/19/17 17:00 (Zofran Inj) 4 mg Q6H PRN IVP 06/19/17 17:00 (Narcan Inj) 0.4 mg UNSCH PRN IV PUSH 06/19/17 17:00 (Milk Of Magnesia Liq) 30 ml Q12H PRN PO 06/19/17 17:00 (Senokot) 17.2 mg Q12H PRN PO 06/19/17 17:00 (Dulcolax Supp) 10 mg DAILY PRN RECTAL 06/19/17 17:00 (Lactulose Liq) 30 ml DAILY PRN PO 06/19/17 17:00 (Lipitor) 20 mg HS PO 06/19/17 21:00 06/20/17 19:21 (Plavix) 75 mg DAILY PO 06/20/17 09:00 06/20/17 08:44 (Depakote Sprinkles) 125 mg BID PO 06/19/17 21:00 06/20/17 19:21 (Keppra) 500 mg BID PO 06/19/17 21:00 06/20/17 19:23 (SEROquel) 300 mg HS PO 06/19/17 21:00 06/20/17 19:22 (NovoLIN R SUPPLEMENTAL SCALE) 1 ACHS SLIDING SCALE SQ 06/19/17 17:00 06/19/17 21:00 (Lactulose Liq) 30 ml DAILY PO 06/19/17 17:30 06/19/17 17:30 (Ativan) 1 mg Q6H PRN PO 06/20/17 10:00 06/20/17 19:21 (SEROquel) 50 mg DAILY PO 06/20/17 10:30 A/P Assessment and Plan 56-year-old male with a past medical history of CVA with residual aphasia, unspecified dementia, mood disorder, diabetes, HLD who was sent from SNF under Ybarra act for aggressive behavior. The patient was seen by psychiatry in the ED and Ybarra act was lifted as condition was felt to be more neurologic. The patient was medically cleared from the ED, however the patient's facility would not take him back. The patient was admitted to the hospitalist service due to chronic issues and social issues. Dementia with behavioral disturbances/reported history of anxiety and bipolar disorder: Presented under Ybarra act, lifted by psychiatry in ED. Medical workup essentially unremarkable except for mildly elevated ammonia as below. Continue patient's home Depakote, Seroquel, and Ativan as needed. PT consulted. Reconsult psychiatry for assistance with psychotropic medications. Reported history of hepatitis C with elevated ammonia: LFTs are essentially wnl , however ammonia was elevated at 47. Started lactulose, although patient has been refusing some doses. Repeat ammonia unchanged at 47. Diabetes mellitus: Metformin on hold. Monitor Accu-Cheks. Continue sliding scale coverage. History of CVA with reported residual expressive aphasia: Continue home Plavix and statin. DVT prophylaxis: SCDs CODE STATUS: Signed DNR is in the patient's chart from SNF Discharge Planning Patient's mood improving. Await psych eval. Needs placement. Susie Ryan PA-C Jun 21, 2017 10:03 am
[2017-06-21] MEDS: LACTULOSE SYRUP 20 GM/30 ML CUP PO SCH (10:52)
[2017-06-21] MEDS: DIVALPROEX SODIUM SPRINKLES 125 MG CAP PO SCH ×2 (10:52→20:22)
[2017-06-21] MEDS: CLOPIDOGREL 75 MG TAB PO SCH (10:52)
[2017-06-21] MEDS: levETIRAcetam 500 MG TAB PO SCH ×2 (10:52→20:21)
[2017-06-21] MEDS: QUEtiapine FUMARATE 25 MG TAB PO SCH (10:53)
--- NOTE | 2017-06-21 12:57 | HHI.PYPN ---
Subjective Remarks Patient was seen today for psychiatric reevaluation, patient is oppositional, resistant, refusing to answer my questions. However, he does say that he feels okay, he denies suicidal and homicidal ideation, he denies visual and auditory hallucinations. As per nurses, also as per conversation with Ms. Ryan, just today the patient was really agitated and hostile in the ER, but today patient has been calmer and more cooperative with the team. Review of Systems Other No somatic complaints Objective Alert: Yes [place]: Person Mood: Calm Affect: Labile Memory Intact: Comment (unable to tets) Hallucinations: Other (does not appera to be repsonding to) Delusions: No Delusion Type: Other (no elicited) Suicidal: Ideation (he denies) Homicidal: Ideation (denies) Insight/Judgment Poor Vitals/IOs Vital Signs Date Time Temp Pulse Resp B/P (MAP) Pulse Ox O2 Delivery O2 Flow Rate FiO2 06/21/17 12:01 06/21/17 07:26 67 06/21/17 04:19 98.4 18 96 06/19/17 05:47 Room Air Assessment & Plan Problem List: (1) Dementia with behavioral disturbance ICD Codes: F03.91 - Unspecified dementia with behavioral disturbance Status: Acute Assessment & Plan: Patient has been reportedly agitated, showing episodic hostility which most probably is the result of cognitive efficiency secondary to neurological impairment. I will increase the Depakote to 250 mg to help with impulse control and behavior dysregulation. We'll follow-up in the medical floor. Assessment & Plan Estimated LOS: days Justification for Cont. Inpt. Patient does not meet criteria for involuntary psychiatric admission. Problem Qualifiers (1) Dementia with behavioral disturbance: Qualified Codes: F03.91 - Unspecified dementia with behavioral disturbance Abdulkadir Padilla MD Jun 21, 2017 12:57
[2017-06-21 16:15] VITALS: BP 113/61; PULSE 62; RESP 16; TEMP 98; O2SAT 96
[2017-06-21 20:09] VITALS: BP 127/63; PULSE 54; RESP 20; TEMP 97.7; O2SAT 99
[2017-06-21] MEDS: QUEtiapine FUMARATE 300 MG TAB PO SCH (20:21)
[2017-06-21] MEDS: ATORVASTATIN 20 MG TAB PO SCH (20:21)
[2017-06-22 04:21] VITALS: BP 121/66; PULSE 60; RESP 20; TEMP 97.4; O2SAT 97
[2017-06-22] MEDS: INSULIN NovoLIN REGULAR SUPPLEMENTAL SCALE SQ SCH ×4 (08:00→20:09)
[2017-06-22 08:16] VITALS: BP 116/61; PULSE 53; RESP 18; TEMP 97.6; O2SAT 96
--- NOTE | 2017-06-22 08:29 | HHI.PR ---
Subjective Remarks Follow up for dementia/CVA with agitation. The patient is not cooperative with exam today, wants to be left alone. Keeps blanket pulled up to his face. Will not answer questions. Objective Vitals Vital Signs Date Time Temp Pulse Resp B/P (MAP) Pulse Ox O2 Delivery O2 Flow Rate FiO2 06/22/17 08:16 97.6 53 18 116/61 (79) 96 06/22/17 04:21 97.4 60 20 121/66 (84) 97 06/21/17 20:09 97.7 54 20 127/63 (84) 99 06/21/17 16:15 98.0 62 16 113/61 (78) 96 06/21/17 12:01 06/21/17 09:02 I/O 06/21/17 06/21/17 06/21/17 06/22/17 06/22/17 06/22/17 07:00 15:00 23:00 07:00 15:00 23:00 Intake Total 200 ml Balance 200 ml Intake Oral 200 ml Result Diagram: 06/18/17 1852 Objective Remarks GENERAL: Well-nourished, well-developed middle aged male patient in [facility]. SKIN: Warm and dry. No rash. HEENT: Normocephalic. Atraumatic. CARDIOVASCULAR: Refused RESPIRATORY: No accessory muscle use. Refused auscultation. GASTROINTESTINAL: Refused. MUSCULOSKELETAL: No obvious deformities. NEUROLOGICAL: Awake and alert. Right sided hemiparesis. Expressive aphasia. PSYCHIATRIC: Calm mood; insight and judgment poor. Medications and IVs Current Medications Medications (Trade) Dose Ordered Sig/Analia Route Start Time Stop Time Status Last Admin (NS Flush) 2 ml UNSCH PRN IV FLUSH 06/19/17 17:00 (NS Flush) 2 ml BID IV FLUSH 06/19/17 21:00 06/21/17 20:22 (Tylenol) 650 mg Q4H PRN PO 06/19/17 17:00 (Zofran Inj) 4 mg Q6H PRN IVP 06/19/17 17:00 (Narcan Inj) 0.4 mg UNSCH PRN IV PUSH 06/19/17 17:00 (Milk Of Magnesia Liq) 30 ml Q12H PRN PO 06/19/17 17:00 (Senokot) 17.2 mg Q12H PRN PO 06/19/17 17:00 (Dulcolax Supp) 10 mg DAILY PRN RECTAL 06/19/17 17:00 (Lactulose Liq) 30 ml DAILY PRN PO 06/19/17 17:00 (Lipitor) 20 mg HS PO 06/19/17 21:00 06/21/17 20:21 (Plavix) 75 mg DAILY PO 06/20/17 09:00 06/21/17 10:52 (Keppra) 500 mg BID PO 06/19/17 21:00 06/21/17 20:21 (SEROquel) 300 mg HS PO 06/19/17 21:00 06/21/17 20:21 (NovoLIN R SUPPLEMENTAL SCALE) 1 ACHS SLIDING SCALE SQ 06/19/17 17:00 06/19/17 21:00 (Lactulose Liq) 30 ml DAILY PO 06/19/17 17:30 06/21/17 10:52 (Ativan) 1 mg Q6H PRN PO 06/20/17 10:00 06/20/17 19:21 (SEROquel) 50 mg DAILY PO 06/20/17 10:30 06/21/17 10:53 (Depakote Sprinkles) 250 mg BID PO 06/21/17 21:00 06/21/17 20:22 A/P Assessment and Plan 56-year-old male with a past medical history of CVA with residual aphasia, unspecified dementia, mood disorder, diabetes, HLD who was sent from SNF under Ybarra act for aggressive behavior. The patient was seen by psychiatry in the ED and Ybarra act was lifted as condition was felt to be more neurologic. The patient was medically cleared from the ED, however the patient's facility would not take him back. The patient was admitted to the hospitalist service due to chronic issues and social issues. Dementia with behavioral disturbances/reported history of anxiety and bipolar disorder: Presented under Ybarra act, lifted by psychiatry in ED. Medical workup essentially unremarkable except for mildly elevated ammonia as below. Continue patient's home Depakote, Seroquel, and Ativan as needed. PT consulted. Reconsulted psychiatry for assistance with psychotropic medications , increased Depakote dosing. Reported history of hepatitis C with elevated ammonia: LFTs are essentially wnl , however ammonia was elevated at 47. Started lactulose, although patient has been refusing some doses. Repeat ammonia unchanged at 47. Diabetes mellitus: Metformin on hold. Monitor Accu-Cheks. Continue sliding scale coverage. History of CVA with reported residual expressive aphasia: Continue home Plavix and statin. DVT prophylaxis: SCDs CODE STATUS: Signed DNR is in the patient's chart from SNF Discharge Planning Patient's mood slowly improving. Needs placement. Susie Ryan PA-C Jun 22, 2017 8:29 am
[2017-06-22] MEDS: levETIRAcetam 500 MG TAB PO SCH ×2 (08:44→20:08)
[2017-06-22] MEDS: QUEtiapine FUMARATE 25 MG TAB PO SCH (08:44)
[2017-06-22] MEDS: DIVALPROEX SODIUM SPRINKLES 125 MG CAP PO SCH ×2 (08:44→20:08)
[2017-06-22] MEDS: CLOPIDOGREL 75 MG TAB PO SCH (08:45)
[2017-06-22] MEDS: LACTULOSE SYRUP 20 GM/30 ML CUP PO SCH (08:45)
[2017-06-22] MEDS: SODIUM CHLORIDE 0.9% FLUSH 10 ML FLUSH IV FLUSH SCH ×2 (09:00→20:08)
[2017-06-22 12:08] VITALS: BP 112/58; PULSE 60; RESP 16; TEMP 97.8; O2SAT 98
[2017-06-22 15:03] VITALS: BP 141/65; PULSE 58; RESP 16; TEMP 98.1; O2SAT 99
[2017-06-22] MEDS: QUEtiapine FUMARATE 300 MG TAB PO SCH (20:08)
[2017-06-22] MEDS: ATORVASTATIN 20 MG TAB PO SCH (20:08)
[2017-06-23 00:16] VITALS: BP 131/76; PULSE 55; RESP 19; TEMP 97.8; O2SAT 100
[2017-06-23] MEDS: INSULIN NovoLIN REGULAR SUPPLEMENTAL SCALE SQ SCH ×4 (08:00→21:00)
[2017-06-23] MEDS ORDERED: HALOPERIDOL LACTATE 5 MG/ML AMP IM ONE (08:05)
[2017-06-23] MEDS: SODIUM CHLORIDE 0.9% FLUSH 10 ML FLUSH IV FLUSH SCH ×2 (09:00→21:00)
[2017-06-23] MEDS: LACTULOSE SYRUP 20 GM/30 ML CUP PO SCH (09:00)
[2017-06-23 09:30] VITALS: BP 157/86; PULSE 106; RESP 20; TEMP 97.8; O2SAT 96
[2017-06-23] MEDS: DIVALPROEX SODIUM SPRINKLES 125 MG CAP PO SCH ×2 (11:29→20:31)
[2017-06-23] MEDS: CLOPIDOGREL 75 MG TAB PO SCH (11:29)
[2017-06-23] MEDS: levETIRAcetam 500 MG TAB PO SCH ×2 (11:29→20:32)
[2017-06-23] MEDS: QUEtiapine FUMARATE 25 MG TAB PO SCH (11:30)
--- NOTE | 2017-06-23 12:22 | HHI.PR ---
Subjective Remarks Follow-up for dementia/CVA with agitation. The patient was reportedly agitated overnight and required restraints. He was covered with stool this morning and would not allow himself to be cleaned up until I am Haldol was eventually given. After Haldol the patient is currently more calm and cooperative. With expressive aphasia he can only communicate with yes and no answers. He denies any complaints at this time. He is thirsty and happy when given something to drink. He is agreeable with letting us try to find an alternative care facility for him. He is agreeable for labs and exam today. Objective Vitals Vital Signs Date Time Temp Pulse Resp B/P (MAP) Pulse Ox O2 Delivery O2 Flow Rate FiO2 06/23/17 09:30 97.8 106 20 157/86 (109) 96 06/23/17 00:16 97.8 55 19 131/76 (94) 100 06/22/17 15:03 98.1 58 16 141/65 (90) 99 I/O 06/22/17 06/22/17 06/22/17 06/23/17 06/23/17 06/23/17 07:00 15:00 23:00 07:00 15:00 23:00 Intake Total 600 ml Balance 600 ml Intake Oral 600 ml # Voids 3 # Bowel Movements 1 Objective Remarks GENERAL: Well-developed well-nourished. Mildly agitated, but no acute distress. In 4 point restraints. SKIN: Warm and dry. No lesions noted. CARDIOVASCULAR: Regular rate and rhythm. No murmur appreciated. RESPIRATORY: No accessory muscle use. Clear to auscultation. Breath sounds equal bilaterally. GASTROINTESTINAL: Abdomen soft, non-tender, nondistended. Bowel sounds x4. MUSCULOSKELETAL: No obvious deformities. No clubbing or cyanosis. No edema. NEUROLOGICAL: Awake and alert. Right-sided hemiparesis. Moves left side spontaneously against restraints. Expressive aphasia. PSYCHIATRIC: Demented but calm mood and affect; insight and judgment poor A/P Assessment and Plan 56-year-old male with a past medical history of CVA with residual aphasia, unspecified dementia, mood disorder, diabetes, HLD who was sent from SNF under Ybarra act for aggressive behavior. The patient was seen by psychiatry in the ED and Ybarra act was lifted as condition was felt to be more neurologic. The patient was medically cleared from the ED, however the patient's facility would not take him back. The patient was admitted to the hospitalist service due to chronic issues and social issues. Dementia with behavioral disturbances/reported history of anxiety and bipolar disorder: Presented under Ybarra act, lifted by psychiatry in ED. Medical workup essentially unremarkable except for mildly elevated ammonia as below. Continue patient's home Depakote, Seroquel, and Ativan as needed. PT consulted. Reconsulted psychiatry for assistance with psychotropic medications , increased Depakote dosing. Patient has been refusing labs, currently agreeable and will attempt to obtain. Restraints and Haldol as needed for agitation for now. Reported history of hepatitis C with elevated ammonia: LFTs are essentially wnl , however ammonia was elevated at 47. Started lactulose, although patient has been refusing some doses. Repeat ammonia pending. Diabetes mellitus: Metformin on hold. Monitor Accu-Cheks. Continue sliding scale coverage. History of CVA with reported residual expressive aphasia: Continue home Plavix and statin. DVT prophylaxis: SCDs CODE STATUS: Signed DNR is in the patient's chart from SNF Discharge Planning Patient's previous long-term care facility refused to take him back. Case management is consulted and working on other options for long-term care. Yaw Hu Jun 23, 2017 12:22
[2017-06-23 12:47] LABS: BICARBONATE 23.9 MEQ/L (21.0-32.0); POTASSIUM 3.5 MEQ/L (3.5-5.1)
[2017-06-23 13:12] VITALS: BP_SYST 165; BP_SYST 175; BP_DIAS 91; BP_DIAS 98; PULSE 113; PULSE 119; RESP 20; TEMP 98; O2SAT 98
[2017-06-23 17:02] VITALS: BP 159/84; PULSE 90; RESP 18; TEMP 98.3; O2SAT 98
[2017-06-23 19:51] VITALS: BP 145/74; PULSE 102; RESP 18; TEMP 98.4; O2SAT 99
[2017-06-23] MEDS: ATORVASTATIN 20 MG TAB PO SCH (20:32)
[2017-06-23] MEDS: QUEtiapine FUMARATE 300 MG TAB PO SCH (20:32)
[2017-06-23 23:49] VITALS: BP 95/51; PULSE 120; RESP 18; TEMP 99; O2SAT 98
[2017-06-24 03:55] VITALS: BP 109/55; PULSE 99; RESP 18; TEMP 99; O2SAT 96
[2017-06-24] MEDS: INSULIN NovoLIN REGULAR SUPPLEMENTAL SCALE SQ SCH ×4 (08:00→21:00)
[2017-06-24 08:18] VITALS: BP 97/67; PULSE 86; RESP 20; TEMP 97.4; O2SAT 92
[2017-06-24] MEDS: SODIUM CHLORIDE 0.9% FLUSH 10 ML FLUSH IV FLUSH SCH ×2 (10:45→21:00)
[2017-06-24] MEDS: QUEtiapine FUMARATE 25 MG TAB PO SCH (10:46)
[2017-06-24] MEDS: levETIRAcetam 500 MG TAB PO SCH ×2 (10:47→21:29)
[2017-06-24] MEDS: CLOPIDOGREL 75 MG TAB PO SCH (10:47)
[2017-06-24] MEDS: QUEtiapine FUMARATE 300 MG TAB PO SCH ×2 (10:47→21:29)
[2017-06-24] MEDS: LACTULOSE SYRUP 20 GM/30 ML CUP PO SCH (10:47)
[2017-06-24] MEDS: DIVALPROEX SODIUM SPRINKLES 125 MG CAP PO SCH ×2 (10:47→21:29)
--- NOTE | 2017-06-24 12:34 | HHI.PR ---
Subjective Remarks Follow-up for dementia/CVA. Discussed with RN, no agitation overnight. The patient says yes when asked if he is doing well today. He reports no past with anything is bothering him. Objective Vitals Vital Signs Date Time Temp Pulse Resp B/P (MAP) Pulse Ox O2 Delivery O2 Flow Rate FiO2 06/24/17 08:18 97.4 86 20 97/67 (77) 92 06/24/17 03:55 99.0 99 18 109/55 (73) 96 06/23/17 23:49 99.0 120 18 95/51 (66) 98 06/23/17 19:51 98.4 102 18 145/74 (97) 99 06/23/17 17:02 98.3 90 18 159/84 (109) 98 06/23/17 13:12 98.0 113 20 165/91 (115) 98 I/O 06/23/17 06/23/17 06/23/17 06/24/17 06/24/17 06/24/17 07:00 15:00 23:00 07:00 15:00 23:00 Intake Total 600 ml 240 ml Balance 600 ml 240 ml Intake Oral 600 ml 240 ml # Voids 3 1 1 # Bowel Movements 1 Result Diagram: 06/23/17 1200 Objective Remarks GENERAL: Well-developed well-nourished. In no acute distress. SKIN: Warm and dry. No lesions noted. CARDIOVASCULAR: Regular rate and rhythm. No murmur appreciated. RESPIRATORY: No accessory muscle use. Clear to auscultation. Breath sounds equal bilaterally. GASTROINTESTINAL: Abdomen soft, non-tender, nondistended. Bowel sounds x4. MUSCULOSKELETAL: No obvious deformities. No clubbing or cyanosis. No edema. NEUROLOGICAL: Awake and alert. Right-sided hemiparesis. Moves left side spontaneously. Expressive aphasia. PSYCHIATRIC: Demented but calm mood and affect; insight and judgment poor A/P Assessment and Plan 56-year-old male with a past medical history of CVA with residual aphasia, unspecified dementia, mood disorder, diabetes, HLD who was sent from SNF under Ybarra act for aggressive behavior. The patient was seen by psychiatry in the ED and Ybarra act was lifted as condition was felt to be more neurologic. The patient was medically cleared from the ED, however the patient's facility would not take him back. The patient was admitted to the hospitalist service due to chronic issues and social issues. Dementia with behavioral disturbances/reported history of anxiety and bipolar disorder: Presented under Ybarra act, lifted by psychiatry in ED. Medical workup essentially unremarkable except for mildly elevated ammonia as below. Continue patient's home Depakote, Seroquel, and Ativan as needed. PT consulted. Reconsulted psychiatry for assistance with psychotropic medications , increased Depakote dosing. Restraints and Haldol if needed for agitation, although currently doing well. Reported history of hepatitis C with elevated ammonia: LFTs are essentially wnl , however ammonia was elevated at 47. Started lactulose, although patient has been refusing some doses. Repeat ammonia improved and within normal limits. Continue lactulose. Abnormal TSH: TSH mildly elevated but free T4 within normal limits. Recommend repeat thyroid function and 4-6 weeks. Diabetes mellitus: Metformin on hold. Monitor Accu-Cheks. Continue sliding scale coverage. History of CVA with reported residual expressive aphasia: Continue home Plavix and statin. DVT prophylaxis: SCDs CODE STATUS: Signed DNR is in the patient's chart from SNF Discharge Planning Patient's previous long-term care facility refused to take him back. Case management is consulted and working on other options for long-term care. Patient is medically clear for discharge whenever placement is arranged. Yaw Hu Jun 24, 2017 12:34
[2017-06-24 12:35] VITALS: BP 92/55; PULSE 76; RESP 20; TEMP 98; O2SAT 98
[2017-06-24 16:48] VITALS: BP 104/67; PULSE 93; RESP 20; TEMP 97.8; O2SAT 95
[2017-06-24 19:42] VITALS: BP 107/70; PULSE 83; RESP 18; TEMP 97.5; O2SAT 94
[2017-06-24] MEDS: ATORVASTATIN 20 MG TAB PO SCH (21:29)
[2017-06-24 23:51] VITALS: BP 105/66; PULSE 88; RESP 20; TEMP 97.8; O2SAT 95
[2017-06-25 04:46] VITALS: BP 90/54; PULSE 77; RESP 18; TEMP 97.3; O2SAT 96
[2017-06-25] MEDS: INSULIN NovoLIN REGULAR SUPPLEMENTAL SCALE SQ SCH ×4 (08:00→21:00)
[2017-06-25 08:05] VITALS: BP 130/74; PULSE 75; RESP 20; TEMP 97.7; O2SAT 99
[2017-06-25] MEDS: DIVALPROEX SODIUM SPRINKLES 125 MG CAP PO SCH ×2 (08:45→21:04)
[2017-06-25] MEDS: LACTULOSE SYRUP 20 GM/30 ML CUP PO SCH (08:45)
[2017-06-25] MEDS: CLOPIDOGREL 75 MG TAB PO SCH (08:45)
[2017-06-25] MEDS: levETIRAcetam 500 MG TAB PO SCH ×2 (08:45→21:05)
[2017-06-25] MEDS: SODIUM CHLORIDE 0.9% FLUSH 10 ML FLUSH IV FLUSH SCH ×2 (08:45→21:00)
[2017-06-25] MEDS: QUEtiapine FUMARATE 25 MG TAB PO SCH (08:45)
[2017-06-25 12:09] VITALS: BP 115/75; PULSE 68; RESP 20; TEMP 97.4; O2SAT 98
[2017-06-25 15:58] VITALS: BP 112/66; PULSE 72; RESP 20; TEMP 98; O2SAT 98
[2017-06-25] MEDS: LORazepam 1 MG TAB PO PRN (17:30)
--- NOTE | 2017-06-25 18:07 | HHI.PR ---
Subjective Remarks Patient denies cp/sob denies fevers/chills eating well pain controlled denies diarrhea Objective Vitals Vital Signs Date Time Temp Pulse Resp B/P (MAP) Pulse Ox O2 Delivery O2 Flow Rate FiO2 06/25/17 15:58 98.0 72 20 112/66 (81) 98 06/25/17 12:09 97.4 68 20 115/75 (88) 98 06/25/17 08:05 97.7 75 20 130/74 (92) 99 06/25/17 04:46 97.3 77 18 90/54 (66) 96 06/24/17 23:51 97.8 88 20 105/66 (79) 95 06/24/17 19:42 97.5 83 18 107/70 (82) 94 I/O 06/24/17 06/24/17 06/24/17 06/25/17 06/25/17 06/25/17 06:59 14:59 22:59 06:59 14:59 22:59 Intake Total 240 ml 960 ml Balance 240 ml 960 ml Intake Oral 240 ml 960 ml # Voids 1 3 2 # Bowel Movements 0 Result Diagram: 06/23/17 1200 Objective Remarks GENERAL: Well-developed well-nourished. In no acute distress. SKIN: Warm and dry. No lesions noted. CARDIOVASCULAR: Regular rate and rhythm. No murmur appreciated. RESPIRATORY: No accessory muscle use. Clear to auscultation. Breath sounds equal bilaterally. GASTROINTESTINAL: Abdomen soft, non-tender, nondistended. Bowel sounds x4. MUSCULOSKELETAL: No obvious deformities. No clubbing or cyanosis. No edema. NEUROLOGICAL: Awake and alert. Right-sided hemiparesis. Moves left side spontaneously. Expressive aphasia. PSYCHIATRIC: Demented but calm mood and affect; insight and judgment poor Medications and IVs Current Medications Medications (Trade) Dose Ordered Sig/Analia Route Start Time Stop Time Status Last Admin (NS Flush) 2 ml UNSCH PRN IV FLUSH 06/19/17 17:00 (NS Flush) 2 ml BID IV FLUSH 06/19/17 21:00 06/24/17 10:45 (Tylenol) 650 mg Q4H PRN PO 06/19/17 17:00 (Zofran Inj) 4 mg Q6H PRN IVP 06/19/17 17:00 (Narcan Inj) 0.4 mg UNSCH PRN IV PUSH 06/19/17 17:00 (Milk Of Magnesia Liq) 30 ml Q12H PRN PO 06/19/17 17:00 (Senokot) 17.2 mg Q12H PRN PO 06/19/17 17:00 (Dulcolax Supp) 10 mg DAILY PRN RECTAL 06/19/17 17:00 (Lactulose Liq) 30 ml DAILY PRN PO 06/19/17 17:00 (Lipitor) 20 mg HS PO 06/19/17 21:00 06/24/17 21:29 (Plavix) 75 mg DAILY PO 06/20/17 09:00 06/25/17 08:45 (Keppra) 500 mg BID PO 06/19/17 21:00 06/25/17 08:45 (SEROquel) 300 mg HS PO 06/19/17 21:00 06/24/17 21:29 (NovoLIN R SUPPLEMENTAL SCALE) 1 ACHS SLIDING SCALE SQ 06/19/17 17:00 06/25/17 08:00 (Lactulose Liq) 30 ml DAILY PO 06/19/17 17:30 06/25/17 08:45 (Ativan) 1 mg Q6H PRN PO 06/20/17 10:00 06/25/17 17:30 (SEROquel) 50 mg DAILY PO 06/20/17 10:30 06/25/17 08:45 (Depakote Sprinkles) 250 mg BID PO 06/21/17 21:00 06/25/17 08:45 (Haldol Inj) 2 mg Q8H PRN IM 06/23/17 12:15 Urinary Catheter: No Vascular Central Line Catheter: No A/P Assessment and Plan 56-year-old male with a past medical history of CVA with residual aphasia, unspecified dementia, mood disorder, diabetes, HLD who was sent from SNF under Ybarra act for aggressive behavior. The patient was seen by psychiatry in the ED and Ybarra act was lifted as condition was felt to be more neurologic. The patient was medically cleared from the ED, however the patient's facility would not take him back. The patient was admitted to the hospitalist service due to chronic issues and social issues. Dementia with behavioral disturbances/reported history of anxiety and bipolar disorder: Presented under Ybarra act, lifted by psychiatry in ED. Medical workup essentially unremarkable except for mildly elevated ammonia as below. Continue patient's home Depakote, Seroquel, and Ativan as needed. PT consulted. Reconsulted psychiatry for assistance with psychotropic medications , increased Depakote dosing. Restraints and Haldol if needed for agitation, although currently doing well. Reported history of hepatitis C with elevated ammonia: LFTs are essentially wnl , however ammonia was elevated at 47. Started lactulose, although patient has been refusing some doses. Repeat ammonia improved and within normal limits. Continue lactulose. Abnormal TSH: TSH mildly elevated but free T4 within normal limits. Recommend repeat thyroid function and 4-6 weeks. Diabetes mellitus: Metformin on hold. Monitor Accu-Cheks. Continue sliding scale coverage. Blood sugars stable. History of CVA with reported residual expressive aphasia: Continue home Plavix and statin. DVT prophylaxis: SCDs CODE STATUS: Signed DNR is in the patient's chart from SNF Discharge Planning Patient's previous long-term care facility refused to take him back. Case management is consulted and working on other options for long-term care. Patient is medically clear for discharge whenever placement is arranged. Constantine Wilson MD Jun 25, 2017 18:07
[2017-06-25 20:00] VITALS: BP 133/67; PULSE 62; RESP 20; TEMP 98.7; O2SAT 96
[2017-06-25] MEDS: ATORVASTATIN 20 MG TAB PO SCH (21:05)
[2017-06-25] MEDS: QUEtiapine FUMARATE 300 MG TAB PO SCH (21:14)
[2017-06-26] VITALS: BP 110/61; PULSE 83; RESP 20; TEMP 97.8; O2SAT 97
[2017-06-26 04:00] VITALS: BP 144/75; PULSE 58; RESP 20; TEMP 97.4; O2SAT 92
[2017-06-26] MEDS: INSULIN NovoLIN REGULAR SUPPLEMENTAL SCALE SQ SCH ×4 (08:00→21:00)
[2017-06-26] MEDS: LORazepam 1 MG TAB PO PRN ×2 (08:59→17:45)
[2017-06-26] MEDS: DIVALPROEX SODIUM SPRINKLES 125 MG CAP PO SCH ×2 (09:00→21:26)
[2017-06-26] MEDS: levETIRAcetam 500 MG TAB PO SCH ×2 (09:00→21:26)
[2017-06-26] MEDS: CLOPIDOGREL 75 MG TAB PO SCH (09:00)
[2017-06-26] MEDS: SODIUM CHLORIDE 0.9% FLUSH 10 ML FLUSH IV FLUSH SCH ×2 (09:00→21:00)
[2017-06-26] MEDS: QUEtiapine FUMARATE 25 MG TAB PO SCH (09:00)
[2017-06-26] MEDS: LACTULOSE SYRUP 20 GM/30 ML CUP PO SCH (09:00)
[2017-06-26] MEDS: HALOPERIDOL LACTATE 5 MG/ML AMP IM PRN (09:00)
[2017-06-26 12:00] VITALS: BP 145/76; PULSE 89; RESP 19; TEMP 98.7; O2SAT 97
[2017-06-26 16:00] VITALS: BP 119/64; PULSE 82; RESP 20; TEMP 97.6; O2SAT 97
--- NOTE | 2017-06-26 18:26 | HHI.PR ---
Subjective Remarks As per RN patient became very agitated and combative today and had to be placed on 4 point restraints patient denies any complaints Objective Vitals Vital Signs Date Time Temp Pulse Resp B/P (MAP) Pulse Ox O2 Delivery O2 Flow Rate FiO2 06/26/17 16:00 97.6 82 20 119/64 (82) 97 06/26/17 12:00 98.7 89 19 145/76 (99) 97 06/26/17 04:00 97.4 58 20 144/75 (98) 92 06/26/17 00:00 97.8 83 20 110/61 (77) 97 06/25/17 20:00 98.7 62 20 133/67 (89) 96 I/O 06/25/17 06/25/17 06/25/17 06/26/17 06/26/17 06/26/17 07:00 15:00 23:00 07:00 15:00 23:00 Intake Total 960 ml 120 ml 340 ml 580 ml Output Total 400 ml Balance 960 ml 120 ml 340 ml 180 ml Intake Oral 960 ml 120 ml 340 ml 580 ml Output Urine Total 400 ml # Voids 3 2 2 3 # Bowel Movements 0 2 1 Result Diagram: 06/23/17 1200 Objective Remarks GENERAL: Well-developed well-nourished. In no acute distress. SKIN: Warm and dry. No lesions noted. CARDIOVASCULAR: Regular rate and rhythm. No murmur appreciated. RESPIRATORY: No accessory muscle use. Clear to auscultation. Breath sounds equal bilaterally. GASTROINTESTINAL: Abdomen soft, non-tender, nondistended. Bowel sounds x4. MUSCULOSKELETAL: No obvious deformities. No clubbing or cyanosis. No edema. NEUROLOGICAL: Awake and alert. Right-sided hemiparesis. Moves left side spontaneously. Expressive aphasia. PSYCHIATRIC: Demented but calm mood and affect; insight and judgment poor Medications and IVs Current Medications Medications (Trade) Dose Ordered Sig/Analia Route Start Time Stop Time Status Last Admin (NS Flush) 2 ml UNSCH PRN IV FLUSH 06/19/17 17:00 (NS Flush) 2 ml BID IV FLUSH 06/19/17 21:00 06/24/17 10:45 (Tylenol) 650 mg Q4H PRN PO 06/19/17 17:00 (Zofran Inj) 4 mg Q6H PRN IVP 06/19/17 17:00 (Narcan Inj) 0.4 mg UNSCH PRN IV PUSH 06/19/17 17:00 (Milk Of Magnesia Liq) 30 ml Q12H PRN PO 06/19/17 17:00 (Senokot) 17.2 mg Q12H PRN PO 06/19/17 17:00 (Dulcolax Supp) 10 mg DAILY PRN RECTAL 06/19/17 17:00 (Lactulose Liq) 30 ml DAILY PRN PO 06/19/17 17:00 (Lipitor) 20 mg HS PO 06/19/17 21:00 06/25/17 21:05 (Plavix) 75 mg DAILY PO 06/20/17 09:00 06/25/17 08:45 (Keppra) 500 mg BID PO 06/19/17 21:00 06/25/17 21:05 (SEROquel) 300 mg HS PO 06/19/17 21:00 06/25/17 21:14 (NovoLIN R SUPPLEMENTAL SCALE) 1 ACHS SLIDING SCALE SQ 06/19/17 17:00 06/26/17 12:00 (Lactulose Liq) 30 ml DAILY PO 06/19/17 17:30 06/25/17 08:45 (Ativan) 1 mg Q6H PRN PO 06/20/17 10:00 06/26/17 17:45 (SEROquel) 50 mg DAILY PO 06/20/17 10:30 06/25/17 08:45 (Depakote Sprinkles) 250 mg BID PO 06/21/17 21:00 06/26/17 09:00 (Haldol Inj) 2 mg Q8H PRN IM 06/23/17 12:15 06/26/17 09:00 A/P Assessment and Plan 56-year-old male with a past medical history of CVA with residual aphasia, unspecified dementia, mood disorder, diabetes, HLD who was sent from SNF under Ybarra act for aggressive behavior. The patient was seen by psychiatry in the ED and Ybarra act was lifted as condition was felt to be more neurologic. The patient was medically cleared from the ED, however the patient's facility would not take him back. The patient was admitted to the hospitalist service due to chronic issues and social issues. Dementia with behavioral disturbances/reported history of anxiety and bipolar disorder: Presented under Ybarra act, lifted by psychiatry in ED. Medical workup essentially unremarkable except for mildly elevated ammonia as below. Continue patient's home Depakote, Seroquel, and Ativan as needed. PT consulted. Reconsulted psychiatry for assistance with psychotropic medications , increased Depakote dosing. Restraints and Haldol if needed for agitation, although currently doing well. 06/26 Will start Seroquel in am. Reported history of hepatitis C with elevated ammonia: LFTs are essentially wnl , however ammonia was elevated at 47. Started lactulose, although patient has been refusing some doses. Repeat ammonia improved and within normal limits. Continue lactulose. Abnormal TSH: TSH mildly elevated but free T4 within normal limits. Recommend repeat thyroid function and 4-6 weeks. Diabetes mellitus: Metformin on hold. Monitor Accu-Cheks. Continue sliding scale coverage. Blood sugars stable. History of CVA with reported residual expressive aphasia: Continue home Plavix and statin. DVT prophylaxis: SCDs CODE STATUS: Signed DNR is in the patient's chart from SNF Discharge Planning Patient's previous long-term care facility refused to take him back. Case management is consulted and working on other options for long-term care. Patient is medically clear for discharge whenever placement is arranged. Constantine Wilson MD Jun 26, 2017 18:26
[2017-06-26 19:54] VITALS: BP 155/78; PULSE 85; RESP 16; TEMP 98.8; O2SAT 99
[2017-06-26] MEDS: QUEtiapine FUMARATE 300 MG TAB PO SCH (21:26)
[2017-06-26] MEDS: ATORVASTATIN 20 MG TAB PO SCH (21:26)
[2017-06-27 00:15] VITALS: BP 105/65; PULSE 81; RESP 16; TEMP 98.2; O2SAT 96
[2017-06-27 04:50] VITALS: BP 112/64; PULSE 65; RESP 18; TEMP 97.2; O2SAT 95
[2017-06-27 08:03] VITALS: BP 127/65; PULSE 57; RESP 20; TEMP 97.3; O2SAT 98
[2017-06-27] MEDS: QUEtiapine FUMARATE 25 MG TAB PO SCH ×2 (09:00→09:47)
[2017-06-27] MEDS: SODIUM CHLORIDE 0.9% FLUSH 10 ML FLUSH IV FLUSH SCH ×2 (09:00→21:00)
[2017-06-27] MEDS: LACTULOSE SYRUP 20 GM/30 ML CUP PO SCH (09:46)
[2017-06-27] MEDS: DIVALPROEX SODIUM SPRINKLES 125 MG CAP PO SCH ×2 (09:47→21:49)
[2017-06-27] MEDS: CLOPIDOGREL 75 MG TAB PO SCH (09:47)
[2017-06-27] MEDS: levETIRAcetam 500 MG TAB PO SCH ×2 (09:47→21:49)
[2017-06-27] MEDS: INSULIN NovoLIN REGULAR SUPPLEMENTAL SCALE SQ SCH ×4 (10:01→21:00)
[2017-06-27 12:07] VITALS: BP 130/71; PULSE 63; RESP 19; TEMP 97.3; O2SAT 97
[2017-06-27] MEDS ORDERED: INFLUENZA VIRUS VACCINE (QUADRIVALENT) 0.5 ML SYR IM ONE (13:30)
--- NOTE | 2017-06-27 13:30 | HHI.PR ---
Subjective Remarks no complaints denies cp/sob Objective Vitals Vital Signs Date Time Temp Pulse Resp B/P (MAP) Pulse Ox O2 Delivery O2 Flow Rate FiO2 06/27/17 12:07 97.3 63 19 130/71 (90) 97 06/27/17 08:03 97.3 57 20 127/65 (85) 98 06/27/17 04:50 97.2 65 18 112/64 (80) 95 06/27/17 00:15 98.2 81 16 105/65 (78) 96 06/26/17 19:54 98.8 85 16 155/78 (103) 99 06/26/17 16:00 97.6 82 20 119/64 (82) 97 I/O 06/26/17 06/26/17 06/26/17 06/27/17 06/27/17 06/27/17 07:00 15:00 23:00 07:00 15:00 23:00 Intake Total 340 ml 580 ml Output Total 400 ml 400 ml Balance 340 ml 180 ml -400 ml Intake Oral 340 ml 580 ml Output Urine Total 400 ml 400 ml # Voids 3 # Bowel Movements 2 1 1 Result Diagram: 06/23/17 1200 Objective Remarks GENERAL: Well-developed well-nourished. In no acute distress. SKIN: Warm and dry. No lesions noted. CARDIOVASCULAR: Regular rate and rhythm. No murmur appreciated. RESPIRATORY: No accessory muscle use. Clear to auscultation. Breath sounds equal bilaterally. GASTROINTESTINAL: Abdomen soft, non-tender, nondistended. Bowel sounds x4. MUSCULOSKELETAL: No obvious deformities. No clubbing or cyanosis. No edema. NEUROLOGICAL: Awake and alert. Right-sided hemiparesis. Moves left side spontaneously. Expressive aphasia. PSYCHIATRIC: Demented but calm mood and affect; insight and judgment poor Medications and IVs Current Medications Medications (Trade) Dose Ordered Sig/Analia Route Start Time Stop Time Status Last Admin (NS Flush) 2 ml UNSCH PRN IV FLUSH 06/19/17 17:00 (NS Flush) 2 ml BID IV FLUSH 06/19/17 21:00 06/24/17 10:45 (Tylenol) 650 mg Q4H PRN PO 06/19/17 17:00 (Zofran Inj) 4 mg Q6H PRN IVP 06/19/17 17:00 (Narcan Inj) 0.4 mg UNSCH PRN IV PUSH 06/19/17 17:00 (Milk Of Magnesia Liq) 30 ml Q12H PRN PO 06/19/17 17:00 (Senokot) 17.2 mg Q12H PRN PO 06/19/17 17:00 (Dulcolax Supp) 10 mg DAILY PRN RECTAL 06/19/17 17:00 (Lactulose Liq) 30 ml DAILY PRN PO 06/19/17 17:00 (Lipitor) 20 mg HS PO 06/19/17 21:00 06/26/17 21:26 (Plavix) 75 mg DAILY PO 06/20/17 09:00 06/27/17 09:47 (Keppra) 500 mg BID PO 06/19/17 21:00 06/27/17 09:47 (SEROquel) 300 mg HS PO 06/19/17 21:00 06/26/17 21:26 (NovoLIN R SUPPLEMENTAL SCALE) 1 ACHS SLIDING SCALE SQ 06/19/17 17:00 06/27/17 13:04 (Lactulose Liq) 30 ml DAILY PO 06/19/17 17:30 06/27/17 09:46 (Ativan) 1 mg Q6H PRN PO 06/20/17 10:00 06/26/17 17:45 (SEROquel) 50 mg DAILY PO 06/20/17 10:30 06/27/17 09:47 (Depakote Sprinkles) 250 mg BID PO 06/21/17 21:00 06/27/17 09:47 (Haldol Inj) 2 mg Q8H PRN IM 06/23/17 12:15 06/26/17 09:00 (SEROquel) 25 mg DAILY PO 06/27/17 09:00 (Flu (Quadrivalent) Vaccine Inj) 0.5 ml ONCE ONCE IM 06/27/17 13:30 06/27/17 13:31 (Pneumovax-23 Inj) 25 mcg ONCE ONCE IM 06/27/17 13:15 06/27/17 13:16 UNV A/P Assessment and Plan 56-year-old male with a past medical history of CVA with residual aphasia, unspecified dementia, mood disorder, diabetes, HLD who was sent from SNF under Ybarra act for aggressive behavior. The patient was seen by psychiatry in the ED and Ybarra act was lifted as condition was felt to be more neurologic. The patient was medically cleared from the ED, however the patient's facility would not take him back. The patient was admitted to the hospitalist service due to chronic issues and social issues. Dementia with behavioral disturbances/reported history of anxiety and bipolar disorder: Presented under Ybarra act, lifted by psychiatry in ED. Medical workup essentially unremarkable except for mildly elevated ammonia as below. Continue patient's home Depakote, Seroquel, and Ativan as needed. PT consulted. Reconsulted psychiatry for assistance with psychotropic medications , increased Depakote dosing. Restraints and Haldol if needed for agitation, although currently doing well. 06/26 Will start Seroquel in am. 06/27 Will Give Influenza and Pneumovax. Reported history of hepatitis C with elevated ammonia: LFTs are essentially wnl , however ammonia was elevated at 47. Started lactulose, although patient has been refusing some doses. Repeat ammonia improved and within normal limits. Continue lactulose. Abnormal TSH: TSH mildly elevated but free T4 within normal limits. Recommend repeat thyroid function and 4-6 weeks. Diabetes mellitus: Metformin on hold. Monitor Accu-Cheks. Continue sliding scale coverage. Blood sugars stable. History of CVA with reported residual expressive aphasia: Continue home Plavix and statin. DVT prophylaxis: SCDs CODE STATUS: Signed DNR is in the patient's chart from SNF Discharge Planning Patient's previous long-term care facility refused to take him back. Case management is consulted and working on other options for long-term care. Patient is medically clear for discharge whenever placement is arranged. Constantine Wilson MD Jun 27, 2017 13:30
[2017-06-27] MEDS ORDERED: PNEUMOCOCCAL POLYVALENT INJ 25 MCG/0.5 ML SYR IM ONE (13:45)
[2017-06-27 15:36] VITALS: BP 138/70; PULSE 71; RESP 20; TEMP 97.3; O2SAT 97
[2017-06-27] MEDS: HALOPERIDOL LACTATE 5 MG/ML AMP IM PRN (18:40)
[2017-06-27 20:00] VITALS: BP 106/58; PULSE 102; RESP 22; TEMP 98.5; O2SAT 95
[2017-06-27] MEDS: LORazepam 1 MG TAB PO PRN (21:48)
[2017-06-27] MEDS: QUEtiapine FUMARATE 300 MG TAB PO SCH (21:49)
[2017-06-27] MEDS: ATORVASTATIN 20 MG TAB PO SCH (21:49)
[2017-06-28 04:00] VITALS: BP 153/85; PULSE 108; RESP 22; TEMP 97.4; O2SAT 96
[2017-06-28 07:51] VITALS: BP 137/80; PULSE 90; RESP 18; TEMP 97.9; O2SAT 98
[2017-06-28] MEDS: INSULIN NovoLIN REGULAR SUPPLEMENTAL SCALE SQ SCH ×4 (08:00→20:32)
[2017-06-28 08:19] LABS: BICARBONATE 26.6 MEQ/L (21.0-32.0); POTASSIUM 3.9 MEQ/L (3.5-5.1)
[2017-06-28] MEDS: levETIRAcetam 500 MG TAB PO SCH ×2 (10:50→20:31)
[2017-06-28] MEDS: CLOPIDOGREL 75 MG TAB PO SCH (10:50)
[2017-06-28] MEDS: QUEtiapine FUMARATE 25 MG TAB PO SCH (10:50)
[2017-06-28] MEDS: DIVALPROEX SODIUM SPRINKLES 125 MG CAP PO SCH ×2 (10:51→20:31)
[2017-06-28 11:50] VITALS: BP 122/71; PULSE 79; RESP 18; TEMP 97.4; O2SAT 99
[2017-06-28 15:49] VITALS: BP 107/67; PULSE 73; RESP 18; TEMP 97.8; O2SAT 99
[2017-06-28 16:04] VITALS: BP 107/67; PULSE 73; RESP 18; TEMP 97.8; O2SAT 99
[2017-06-28 20:15] VITALS: BP 135/63; PULSE 79; RESP 19; TEMP 97.7; O2SAT 98
[2017-06-28] MEDS: ATORVASTATIN 20 MG TAB PO SCH (20:31)
[2017-06-28] MEDS: LORazepam 1 MG TAB PO PRN (20:31)
[2017-06-28] MEDS: QUEtiapine FUMARATE 300 MG TAB PO SCH (20:31)
[2017-06-28] MEDS: SODIUM CHLORIDE 0.9% FLUSH 10 ML FLUSH IV FLUSH SCH (20:38)
--- NOTE | 2017-06-29 00:17 | HHI.PR ---
Subjective Remarks Deferred entry - patient seen on 06/28/17 at 3:20 pm PAtient is sitting [facility] nurses station mood seems to be more stable patient offers no complaints Objective Vitals Vital Signs Date Time Temp Pulse Resp B/P (MAP) Pulse Ox O2 Delivery O2 Flow Rate FiO2 06/28/17 20:15 97.7 79 19 135/63 (87) 98 06/28/17 15:49 97.8 73 18 107/67 (80) 99 06/28/17 11:50 97.4 79 18 122/71 (88) 99 06/28/17 07:51 97.9 90 18 137/80 (99) 98 06/28/17 04:00 97.4 108 22 153/85 (107) 96 I/O 06/28/17 06/28/17 06/28/17 06/29/17 06/29/17 06/29/17 07:00 15:00 23:00 07:00 15:00 23:00 Intake Total 480 ml 450 ml Output Total 400 ml Balance 480 ml 50 ml Intake Oral 480 ml 450 ml Output Urine Total 400 ml # Voids 1 # Bowel Movements 0 Result Diagram: 06/28/17 0726 Objective Remarks GENERAL: Well-developed well-nourished. In no acute distress. SKIN: Warm and dry. No lesions noted. CARDIOVASCULAR: Regular rate and rhythm. No murmur appreciated. RESPIRATORY: No accessory muscle use. Clear to auscultation. Breath sounds equal bilaterally. GASTROINTESTINAL: Abdomen soft, non-tender, nondistended. Bowel sounds x4. MUSCULOSKELETAL: No obvious deformities. No clubbing or cyanosis. No edema. NEUROLOGICAL: Awake and alert. Right-sided hemiparesis. Moves left side spontaneously. Expressive aphasia. PSYCHIATRIC: Demented but calm mood and affect; insight and judgment poor A/P Assessment and Plan 56-year-old male with a past medical history of CVA with residual aphasia, unspecified dementia, mood disorder, diabetes, HLD who was sent from SNF under Ybarra act for aggressive behavior. The patient was seen by psychiatry in the ED and Ybarra act was lifted as condition was felt to be more neurologic. The patient was medically cleared from the ED, however the patient's facility would not take him back. The patient was admitted to the hospitalist service due to chronic issues and social issues. Dementia with behavioral disturbances/reported history of anxiety and bipolar disorder: Presented under Ybarra act, lifted by psychiatry in ED. Medical workup essentially unremarkable except for mildly elevated ammonia as below. Continue patient's home Depakote, Seroquel, and Ativan as needed. PT consulted. Reconsulted psychiatry for assistance with psychotropic medications , increased Depakote dosing. Restraints and Haldol if needed for agitation, although currently doing well. 06/26 Will start Seroquel in am. 06/27 Will Give Influenza and Pneumovax. 06/28 mood more stable. Continue current management. Reported history of hepatitis C with elevated ammonia: LFTs are essentially wnl , however ammonia was elevated at 47. Started lactulose, although patient has been refusing some doses. Repeat ammonia improved and within normal limits. Continue lactulose. Abnormal TSH: TSH mildly elevated but free T4 within normal limits. Recommend repeat thyroid function and 4-6 weeks. Diabetes mellitus: Metformin on hold. Monitor Accu-Cheks. Continue sliding scale coverage. Blood sugars stable. History of CVA with reported residual expressive aphasia: Continue home Plavix and statin. DVT prophylaxis: SCDs CODE STATUS: Signed DNR is in the patient's chart from SNF Discharge Planning Patient's previous long-term care facility refused to take him back. Case management is consulted and working on other options for long-term care. Patient is medically clear for discharge whenever placement is arranged. Constantine Wilson MD Jun 29, 2017 00:17
[2017-06-29 04:00] VITALS: BP 130/67; PULSE 69; RESP 20; TEMP 98.1; O2SAT 97
[2017-06-29 08:01] VITALS: BP 109/68; PULSE 87; RESP 18; TEMP 98.3; O2SAT 94
[2017-06-29] MEDS: levETIRAcetam 500 MG TAB PO SCH ×2 (08:19→20:13)
[2017-06-29] MEDS: CLOPIDOGREL 75 MG TAB PO SCH (08:19)
[2017-06-29] MEDS: QUEtiapine FUMARATE 25 MG TAB PO SCH ×3 (08:19→08:20)
[2017-06-29] MEDS: DIVALPROEX SODIUM SPRINKLES 125 MG CAP PO SCH ×2 (08:19→20:12)
[2017-06-29] MEDS: LACTULOSE SYRUP 20 GM/30 ML CUP PO SCH (08:20)
[2017-06-29] MEDS: INSULIN NovoLIN REGULAR SUPPLEMENTAL SCALE SQ SCH ×4 (08:22→20:26)
[2017-06-29] MEDS: SODIUM CHLORIDE 0.9% FLUSH 10 ML FLUSH IV FLUSH SCH ×2 (09:00→20:29)
[2017-06-29 12:01] VITALS: BP 112/68; PULSE 80; RESP 19; TEMP 98; O2SAT 98
--- NOTE | 2017-06-29 13:01 | HHI.PR ---
Subjective Remarks as per RN patient is more calmed today no severe agitation reported patient denies cp/sob Objective Vitals Vital Signs Date Time Temp Pulse Resp B/P (MAP) Pulse Ox O2 Delivery O2 Flow Rate FiO2 06/29/17 12:01 98.0 80 19 112/68 (83) 98 06/29/17 08:01 98.3 87 18 109/68 (82) 94 06/29/17 04:00 98.1 69 20 130/67 (88) 97 06/28/17 20:15 97.7 79 19 135/63 (87) 98 06/28/17 15:49 97.8 73 18 107/67 (80) 99 I/O 06/28/17 06/28/17 06/28/17 06/29/17 06/29/17 06/29/17 07:00 15:00 23:00 07:00 15:00 23:00 Intake Total 480 ml 450 ml 100 ml Output Total 400 ml 700 ml Balance 480 ml 50 ml -600 ml Intake Oral 480 ml 450 ml 100 ml Output Urine Total 400 ml 700 ml # Voids 1 # Bowel Movements 0 0 Result Diagram: 06/28/17 0726 Objective Remarks GENERAL: Well-developed well-nourished. In no acute distress. SKIN: Warm and dry. No lesions noted. CARDIOVASCULAR: Regular rate and rhythm. No murmur appreciated. RESPIRATORY: No accessory muscle use. Clear to auscultation. Breath sounds equal bilaterally. GASTROINTESTINAL: Abdomen soft, non-tender, nondistended. Bowel sounds x4. MUSCULOSKELETAL: No obvious deformities. No clubbing or cyanosis. No edema. NEUROLOGICAL: Awake and alert. Right-sided hemiparesis. Moves left side spontaneously. Expressive aphasia. PSYCHIATRIC: Demented but calm mood and affect; insight and judgment poor Medications and IVs Current Medications Medications (Trade) Dose Ordered Sig/Analia Route Start Time Stop Time Status Last Admin (NS Flush) 2 ml UNSCH PRN IV FLUSH 06/19/17 17:00 (NS Flush) 2 ml BID IV FLUSH 06/19/17 21:00 06/29/17 09:00 (Tylenol) 650 mg Q4H PRN PO 06/19/17 17:00 (Zofran Inj) 4 mg Q6H PRN IVP 06/19/17 17:00 (Narcan Inj) 0.4 mg UNSCH PRN IV PUSH 06/19/17 17:00 (Milk Of Magnesia Liq) 30 ml Q12H PRN PO 06/19/17 17:00 (Senokot) 17.2 mg Q12H PRN PO 06/19/17 17:00 (Dulcolax Supp) 10 mg DAILY PRN RECTAL 06/19/17 17:00 (Lactulose Liq) 30 ml DAILY PRN PO 06/19/17 17:00 (Lipitor) 20 mg HS PO 06/19/17 21:00 06/28/17 20:31 (Plavix) 75 mg DAILY PO 06/20/17 09:00 06/29/17 08:19 (Keppra) 500 mg BID PO 06/19/17 21:00 06/29/17 08:19 (SEROquel) 300 mg HS PO 06/19/17 21:00 06/28/17 20:31 (NovoLIN R SUPPLEMENTAL SCALE) 1 ACHS SLIDING SCALE SQ 06/19/17 17:00 06/28/17 20:32 (Lactulose Liq) 30 ml DAILY PO 06/19/17 17:30 06/29/17 08:20 (Ativan) 1 mg Q6H PRN PO 06/20/17 10:00 06/28/17 20:31 (SEROquel) 50 mg DAILY PO 06/20/17 10:30 06/29/17 08:20 (Depakote Sprinkles) 250 mg BID PO 06/21/17 21:00 06/29/17 08:19 (Haldol Inj) 2 mg Q8H PRN IM 06/23/17 12:15 06/27/17 18:40 (SEROquel) 25 mg DAILY PO 06/27/17 09:00 06/29/17 08:20 A/P Problem List: (1) Dementia ICD Code: F03.90 - Unspecified dementia without behavioral disturbance Status: Acute (2) Hyperammonemia ICD Code: E72.20 - Disorder of urea cycle metabolism, unspecified Status: Acute (3) Dementia with behavioral disturbance ICD Code: F03.91 - Unspecified dementia with behavioral disturbance Status: Acute (4) Diabetes ICD Code: E11.9 - Type 2 diabetes mellitus without complications Status: Chronic Assessment and Plan 56-year-old male with a past medical history of CVA with residual aphasia, unspecified dementia, mood disorder, diabetes, HLD who was sent from SNF under Ybarra act for aggressive behavior. The patient was seen by psychiatry in the ED and Ybarra act was lifted as condition was felt to be more neurologic. The patient was medically cleared from the ED, however the patient's facility would not take him back. The patient was admitted to the hospitalist service due to chronic issues and social issues. Dementia with behavioral disturbances/reported history of anxiety and bipolar disorder: Presented under Ybarra act, lifted by psychiatry in ED. Medical workup essentially unremarkable except for mildly elevated ammonia as below. Continue patient's home Depakote, Seroquel, and Ativan as needed. PT consulted. Reconsulted psychiatry for assistance with psychotropic medications , increased Depakote dosing. Restraints and Haldol if needed for agitation, although currently doing well. 06/26 Will start Seroquel in am. 06/27 Will Give Influenza and Pneumovax. 06/28 mood more stable. Continue current management. Reported history of hepatitis C with elevated ammonia: LFTs are essentially wnl , however ammonia was elevated at 47. Started lactulose, although patient has been refusing some doses. Repeat ammonia improved and within normal limits. Continue lactulose. Abnormal TSH: TSH mildly elevated but free T4 within normal limits. Recommend repeat thyroid function and 4-6 weeks. Diabetes mellitus: Metformin on hold. Monitor Accu-Cheks. Continue sliding scale coverage. Blood sugars stable. History of CVA with reported residual expressive aphasia: Continue home Plavix and statin. DVT prophylaxis: SCDs CODE STATUS: Signed DNR is in the patient's chart from SNF Discharge Planning Patient's previous long-term care facility refused to take him back. Case management is consulted and working on other options for long-term care. Patient is medically clear for discharge whenever placement is arranged. Problem Qualifiers (1) Dementia: Qualified Codes: F03.91 - Unspecified dementia with behavioral disturbance (2) Dementia with behavioral disturbance: Qualified Codes: F03.91 - Unspecified dementia with behavioral disturbance (3) Diabetes: Qualified Codes: E11.8 - Type 2 diabetes mellitus with unspecified complications; Z79.4 - continuous churn buttermaker (current) use of insulin Constantine Wilson MD Jun 29, 2017 13:01
[2017-06-29 16:03] VITALS: BP 131/66; PULSE 88; RESP 18; TEMP 98.6; O2SAT 97
[2017-06-29 19:30] VITALS: BP 116/61; PULSE 80; RESP 18; TEMP 97; O2SAT 96
[2017-06-29] MEDS: ATORVASTATIN 20 MG TAB PO SCH (20:13)
[2017-06-29] MEDS: QUEtiapine FUMARATE 300 MG TAB PO SCH (20:13)
[2017-06-30 04:00] VITALS: BP 110/72; PULSE 72; RESP 18; TEMP 97; O2SAT 95
[2017-06-30 08:00] VITALS: BP 134/75; PULSE 64; RESP 20; TEMP 98; O2SAT 98
[2017-06-30] MEDS: INSULIN NovoLIN REGULAR SUPPLEMENTAL SCALE SQ SCH ×4 (08:00→21:00)
[2017-06-30] MEDS: LACTULOSE SYRUP 20 GM/30 ML CUP PO SCH (08:59)
[2017-06-30] MEDS: CLOPIDOGREL 75 MG TAB PO SCH (08:59)
[2017-06-30] MEDS: levETIRAcetam 500 MG TAB PO SCH ×2 (08:59→21:31)
[2017-06-30] MEDS: QUEtiapine FUMARATE 25 MG TAB PO SCH ×2 (08:59)
[2017-06-30] MEDS: SODIUM CHLORIDE 0.9% FLUSH 10 ML FLUSH IV FLUSH SCH ×2 (09:00→21:00)
[2017-06-30] MEDS: DIVALPROEX SODIUM SPRINKLES 125 MG CAP PO SCH ×2 (09:00→21:31)
[2017-06-30] MEDS: HALOPERIDOL LACTATE 5 MG/ML AMP IM PRN (10:20)
[2017-06-30] MEDS: LORazepam 1 MG TAB PO PRN (10:37)
[2017-06-30 12:05] VITALS: BP 159/77; PULSE 104; RESP 20; TEMP 98.4; O2SAT 98
[2017-06-30 16:00] VITALS: BP 139/78; PULSE 95; RESP 20; TEMP 97.8; O2SAT 98
[2017-06-30 20:00] VITALS: BP 176/85; PULSE 83; RESP 18; TEMP 98.2; O2SAT 98
[2017-06-30] MEDS: QUEtiapine FUMARATE 300 MG TAB PO SCH (21:31)
[2017-06-30] MEDS: ATORVASTATIN 20 MG TAB PO SCH (21:31)
--- NOTE | 2017-07-01 00:19 | HHI.PR ---
Subjective Remarks late entry - aptient seen at 13:40 pm as per rN patient very agitated earlier today patient is restrained to bed Objective Vitals Vital Signs Date Time Temp Pulse Resp B/P (MAP) Pulse Ox O2 Delivery O2 Flow Rate FiO2 06/30/17 20:00 98.2 83 18 176/85 (115) 98 06/30/17 16:00 97.8 95 20 139/78 (98) 98 06/30/17 12:05 98.4 104 20 159/77 (104) 98 06/30/17 08:00 98.0 64 20 134/75 (94) 98 06/30/17 04:00 97.0 72 18 110/72 (85) 95 I/O 06/30/17 06/30/17 06/30/17 07/01/17 07/01/17 07/01/17 07:00 15:00 23:00 07:00 15:00 23:00 Intake Total 360 ml Balance 360 ml Intake Oral 360 ml # Voids 2 2 1 # Bowel Movements 1 1 Result Diagram: 06/28/17 0726 Objective Remarks GENERAL: Well-developed well-nourished. Somewhat agitated. SKIN: Warm and dry. No lesions noted. CARDIOVASCULAR: Regular rate and rhythm. No murmur appreciated. RESPIRATORY: No accessory muscle use. Clear to auscultation. Breath sounds equal bilaterally. GASTROINTESTINAL: Abdomen soft, non-tender, nondistended. Bowel sounds x4. MUSCULOSKELETAL: No obvious deformities. No clubbing or cyanosis. No edema. NEUROLOGICAL: Awake and alert. Right-sided hemiparesis. Moves left side spontaneously. Expressive aphasia. PSYCHIATRIC: Demented but calm mood and affect; insight and judgment poor A/P Problem List: (1) Dementia ICD Code: F03.90 - Unspecified dementia without behavioral disturbance Status: Acute (2) Hyperammonemia ICD Code: E72.20 - Disorder of urea cycle metabolism, unspecified Status: Acute (3) Dementia with behavioral disturbance ICD Code: F03.91 - Unspecified dementia with behavioral disturbance Status: Acute (4) Diabetes ICD Code: E11.9 - Type 2 diabetes mellitus without complications Status: Chronic Assessment and Plan 56-year-old male with a past medical history of CVA with residual aphasia, unspecified dementia, mood disorder, diabetes, HLD who was sent from SNF under Ybarra act for aggressive behavior. The patient was seen by psychiatry in the ED and Ybarra act was lifted as condition was felt to be more neurologic. The patient was medically cleared from the ED, however the patient's facility would not take him back. The patient was admitted to the hospitalist service due to chronic issues and social issues. Dementia with behavioral disturbances/reported history of anxiety and bipolar disorder: Presented under Ybarra act, lifted by psychiatry in ED. Medical workup essentially unremarkable except for mildly elevated ammonia as below. Continue patient's home Depakote, Seroquel, and Ativan as needed. PT consulted. Reconsulted psychiatry for assistance with psychotropic medications , increased Depakote dosing. Restraints and Haldol if needed for agitation, although currently doing well. 06/26 Will start Seroquel in am. 06/27 Will Give Influenza and Pneumovax. 06/28 mood more stable. Continue current management. 06/30 patient agitated, will increase am dose of Seroquel. Reported history of hepatitis C with elevated ammonia: LFTs are essentially wnl , however ammonia was elevated at 47. Started lactulose, although patient has been refusing some doses. Repeat ammonia improved and within normal limits. Continue lactulose. Abnormal TSH: TSH mildly elevated but free T4 within normal limits. Recommend repeat thyroid function and 4-6 weeks. Diabetes mellitus: Metformin on hold. Monitor Accu-Cheks. Continue sliding scale coverage. Blood sugars stable. History of CVA with reported residual expressive aphasia: Continue home Plavix and statin. DVT prophylaxis: SCDs CODE STATUS: Signed DNR is in the patient's chart from SNF Discharge Planning Patient's previous long-term care facility refused to take him back. Case management is consulted and working on other options for long-term care. Patient is medically clear for discharge whenever placement is arranged. Problem Qualifiers (1) Dementia: Qualified Codes: F03.91 - Unspecified dementia with behavioral disturbance (2) Dementia with behavioral disturbance: Qualified Codes: F03.91 - Unspecified dementia with behavioral disturbance (3) Diabetes: Qualified Codes: E11.8 - Type 2 diabetes mellitus with unspecified complications; Z79.4 - [facility] (current) use of insulin Constantine Wilson MD Jul 01, 2017 00:19
[2017-07-01 04:00] VITALS: BP 133/79; PULSE 78; RESP 18; TEMP 97.2; O2SAT 98
[2017-07-01 07:51] VITALS: BP 130/76; PULSE 72; RESP 18; TEMP 97.2; O2SAT 95
[2017-07-01] MEDS: INSULIN NovoLIN REGULAR SUPPLEMENTAL SCALE SQ SCH ×4 (08:00→21:21)
[2017-07-01 08:22] LABS: ALT (GPT) 77 U/L (12-78); ANION GAP 7 MEQ/L (5-15); AST (GOT) 47 U/L (15-37); BICARBONATE 25.1 MEQ/L (21.0-32.0); BLOOD UREA NITROGEN 17 MG/DL (7-18); CHLORIDE 107 MEQ/L (98-107); GLOMERULAR FILTRATION RATE 99 ML/MIN (>89); SODIUM (NA) 139 MEQ/L (136-145)
[2017-07-01 08:25] LABS: ALKALINE PHOSPHATASE 53 U/L (45-117); TOTAL BILIRUBIN ADULT 0.5 MG/DL (0.2-1.0)
[2017-07-01 08:42] LABS: AUTOMATED NEUTROPHIL # 4.4 TH/MM3 (1.8-7.7); BASOPHIL % 0.6 % (0.0-2.0); EOSINOPHIL # 0.3 TH/MM3 (0-0.4); EOSINOPHIL % 3.5 % (0.0-4.0); HEMATOCRIT 41.2 % (39.0-51.0); HEMO FLAGS DIFF FINAL; LYMPH % 27.1 % (9.0-44.0); MEAN CELL VOLUME 83.6 FL (80.0-100.0); MEAN CORPUSCULAR HEMOGLOBIN 28.9 PG (27.0-34.0); MEAN CORPUSCULAR HGB CONC 34.6 % (32.0-36.0); MONO % 7.8 % (0.0-8.0); PLATELET COUNT 197 TH/MM3 (150-450); RED BLOOD COUNT 4.92 MIL/MM3 (4.50-5.90); RED CELL DISTRIBUTION WIDTH 13.9 % (11.6-17.2); WHITE BLOOD COUNT 7.3 TH/MM3 (4.0-11.0)
[2017-07-01] MEDS: SODIUM CHLORIDE 0.9% FLUSH 10 ML FLUSH IV FLUSH SCH ×3 (09:00→21:25)
[2017-07-01] MEDS: LACTULOSE SYRUP 20 GM/30 ML CUP PO SCH (09:00)
[2017-07-01] MEDS ORDERED: QUEtiapine FUMARATE 25 MG TAB PO SCH (09:00)
[2017-07-01] MEDS: levETIRAcetam 500 MG TAB PO SCH ×2 (09:01→20:47)
[2017-07-01] MEDS: DIVALPROEX SODIUM SPRINKLES 125 MG CAP PO SCH ×2 (09:01→20:46)
[2017-07-01] MEDS: CLOPIDOGREL 75 MG TAB PO SCH (09:02)
[2017-07-01 11:52] VITALS: BP 115/74; PULSE 74; RESP 20; TEMP 98; O2SAT 98
--- NOTE | 2017-07-01 13:38 | HHI.PR ---
Subjective Remarks As per RN report, patient's behavior improved Only with soft restraints on lower extremities. patient denies cp/sob Objective Vitals Vital Signs Date Time Temp Pulse Resp B/P (MAP) Pulse Ox O2 Delivery O2 Flow Rate FiO2 07/01/17 11:52 98.0 74 20 115/74 (88) 98 07/01/17 07:51 97.2 72 18 130/76 (94) 95 07/01/17 04:00 97.2 78 18 133/79 (97) 98 06/30/17 20:00 98.2 83 18 176/85 (115) 98 06/30/17 16:00 97.8 95 20 139/78 (98) 98 I/O 06/30/17 06/30/17 06/30/17 07/01/17 07/01/17 07/01/17 06:59 14:59 22:59 06:59 14:59 22:59 Intake Total 360 ml Output Total 800 ml Balance 360 ml -800 ml Intake Oral 360 ml Output Urine Total 800 ml # Voids 2 2 1 # Bowel Movements 1 1 Result Diagram: 07/01/17 0738 07/01/17 0733 Objective Remarks GENERAL: Well-developed well-nourished. Somewhat agitated. SKIN: Warm and dry. No lesions noted. CARDIOVASCULAR: Regular rate and rhythm. No murmur appreciated. RESPIRATORY: No accessory muscle use. Clear to auscultation. Breath sounds equal bilaterally. GASTROINTESTINAL: Abdomen soft, non-tender, nondistended. Bowel sounds x4. MUSCULOSKELETAL: No obvious deformities. No clubbing or cyanosis. No edema. NEUROLOGICAL: Awake and alert. Right-sided hemiparesis. Moves left side spontaneously. Expressive aphasia. PSYCHIATRIC: Demented but calm mood and affect; insight and judgment poor A/P Problem List: (1) Dementia ICD Code: F03.90 - Unspecified dementia without behavioral disturbance Status: Acute (2) Hyperammonemia ICD Code: E72.20 - Disorder of urea cycle metabolism, unspecified Status: Acute (3) Dementia with behavioral disturbance ICD Code: F03.91 - Unspecified dementia with behavioral disturbance Status: Acute (4) Diabetes ICD Code: E11.9 - Type 2 diabetes mellitus without complications Status: Chronic Assessment and Plan 56-year-old male with a past medical history of CVA with residual aphasia, unspecified dementia, mood disorder, diabetes, HLD who was sent from SNF under Ybarra act for aggressive behavior. The patient was seen by psychiatry in the ED and Ybarra act was lifted as condition was felt to be more neurologic. The patient was medically cleared from the ED, however the patient's facility would not take him back. The patient was admitted to the hospitalist service due to chronic issues and social issues. Dementia with behavioral disturbances/reported history of anxiety and bipolar disorder: Presented under Ybarra act, lifted by psychiatry in ED. Medical workup essentially unremarkable except for mildly elevated ammonia as below. Continue patient's home Depakote, Seroquel, and Ativan as needed. PT consulted. Reconsulted psychiatry for assistance with psychotropic medications , increased Depakote dosing. Restraints and Haldol if needed for agitation, although currently doing well. 06/26 Will start Seroquel in am. 06/27 Will Give Influenza and Pneumovax. 06/28 mood more stable. Continue current management. 06/30 patient agitated, will increase am dose of Seroquel. 07/01 Behavior improved however still somewhat agitated during the day. Increase dose of Seroquel to 100 mg po daily. Reported history of hepatitis C with elevated ammonia: LFTs are essentially wnl , however ammonia was elevated at 47. Started lactulose, although patient has been refusing some doses. Repeat ammonia improved and within normal limits. Continue lactulose. Abnormal TSH: TSH mildly elevated but free T4 within normal limits. Recommend repeat thyroid function and 4-6 weeks. Diabetes mellitus: Metformin on hold. Monitor Accu-Cheks. Continue sliding scale coverage. Blood sugars stable. History of CVA with reported residual expressive aphasia: Continue home Plavix and statin. DVT prophylaxis: SCDs CODE STATUS: Signed DNR is in the patient's chart from SNF Discharge Planning Patient's previous long-term care facility refused to take him back. Case management is consulted and working on other options for long-term care. Patient is medically clear for discharge whenever placement is arranged. Problem Qualifiers (1) Dementia: Qualified Codes: F03.91 - Unspecified dementia with behavioral disturbance (2) Dementia with behavioral disturbance: Qualified Codes: F03.91 - Unspecified dementia with behavioral disturbance (3) Diabetes: Qualified Codes: E11.8 - Type 2 diabetes mellitus with unspecified complications; Z79.4 - senior care (current) use of insulin Iniguez Núñez,Constantine MD Jul 01, 2017 13:38
[2017-07-01 15:44] VITALS: BP 132/72; PULSE 71; RESP 20; TEMP 97.9; O2SAT 95
[2017-07-01 19:57] VITALS: BP 137/81; PULSE 86; RESP 18; TEMP 97.3; O2SAT 97
[2017-07-01] MEDS: ATORVASTATIN 20 MG TAB PO SCH (20:47)
[2017-07-01] MEDS: QUEtiapine FUMARATE 300 MG TAB PO SCH (20:47)
[2017-07-02 04:00] VITALS: BP 111/73; PULSE 97; RESP 18; TEMP 98.5; O2SAT 97
[2017-07-02 08:00] VITALS: BP 124/70; PULSE 79; RESP 20; TEMP 97.3; O2SAT 97
[2017-07-02] MEDS: INSULIN NovoLIN REGULAR SUPPLEMENTAL SCALE SQ SCH ×3 (08:00→21:57)
[2017-07-02] MEDS: LACTULOSE SYRUP 20 GM/30 ML CUP PO SCH (09:51)
[2017-07-02] MEDS: QUEtiapine FUMARATE 100 MG TAB PO SCH (09:51)
[2017-07-02] MEDS: CLOPIDOGREL 75 MG TAB PO SCH (09:51)
[2017-07-02] MEDS: DIVALPROEX SODIUM SPRINKLES 125 MG CAP PO SCH ×2 (09:57→20:28)
[2017-07-02] MEDS: levETIRAcetam 500 MG TAB PO SCH ×2 (10:02→20:28)
--- NOTE | 2017-07-02 10:43 | HHI.PR ---
Subjective Remarks Patient stable in his bedroom, Behavior improving, was recommended by Management to get new Psychiatry specialist consult. asked today no nausea, vomit or diarrhea, discussed with Special Education Resource Room Teacher He will need new evaluation by Psychiatry to assess his Medications and adjust them to improving aggressivity, he is not been accepted to any facility due to this issue. Objective Vital Signs Date Time Temp Pulse Resp B/P (MAP) Pulse Ox O2 Delivery O2 Flow Rate FiO2 07/02/17 08:00 97.3 79 20 124/70 (88) 97 07/02/17 04:00 98.5 97 18 111/73 (86) 97 07/01/17 19:57 97.3 86 18 137/81 (99) 97 07/01/17 15:44 97.9 71 20 132/72 (92) 95 07/01/17 11:52 98.0 74 20 115/74 (88) 98 I/O 07/01/17 07/01/17 07/01/17 07/02/17 07/02/17 07/02/17 07:00 15:00 23:00 07:00 15:00 23:00 Intake Total 600 ml Output Total 800 ml Balance -800 ml 600 ml Intake Oral 600 ml Output Urine Total 800 ml # Voids 5 1 4 # Bowel Movements 2 Result Diagram: 07/01/17 0738 07/01/17 0733 Imaging No new Imaging studies. Procedures None Other Results Laboratory Tests Test 06/17/17 19:39 06/17/17 20:00 06/18/17 18:33 06/23/17 12:00 Valproic Acid (Depakene) Level 57 MCG/ML Urine Color YELLOW Urine Turbidity CLEAR Urine pH 7.0 Urine Specific [place] 1.019 Urine Protein NEG mg/dL Urine Glucose (UA) 70 mg/dL Urine Ketones 10 mg/dL Urine Occult Blood NEG Urine Nitrite NEG Urine Bilirubin NEG Urine Urobilinogen 8.0 MG/DL Urine Leukocyte Esterase NEG Urine WBC 2 /hpf Microscopic Urinalysis Comment CULT NOT INDICATED Urine Opiates Screen NEG Urine Barbiturates Screen NEG Urine Amphetamines Screen NEG Urine Benzodiazepines Screen NEG Urine Cocaine Screen NEG Urine Cannabinoids Screen NEG Prothrombin Time 11.3 SEC Prothromb Time International Ratio 1.0 RATIO Activated Partial Thromboplast Time 26.2 SEC Ammonia 24 MCMOL/L Free Thyroxine 1.28 NG/DL Thyroid Stimulating Hormone 3rd Gen 4.850 uIU/ML Test 07/01/17 07:33 07/01/17 07:38 Blood Urea Nitrogen 17 MG/DL Creatinine 0.81 MG/DL Random Glucose 135 MG/DL Total Protein 8.2 GM/DL Albumin 3.6 GM/DL Calcium Level 9.0 MG/DL Alkaline Phosphatase 53 U/L Aspartate Amino Transf (AST/SGOT) 47 U/L Alanine Aminotransferase (ALT/SGPT) 77 U/L Total Bilirubin 0.5 MG/DL Sodium Level 139 MEQ/L Potassium Level 4.0 MEQ/L Chloride Level 107 MEQ/L Carbon Dioxide Level 25.1 MEQ/L Anion Gap 7 MEQ/L Estimat Glomerular Filtration Rate 99 ML/MIN White Blood Count 7.3 TH/MM3 Red Blood Count 4.92 MIL/MM3 Hemoglobin 14.2 GM/DL Hematocrit 41.2 % Mean Corpuscular Volume 83.6 FL Mean Corpuscular Hemoglobin 28.9 PG Mean Corpuscular Hemoglobin Concent 34.6 % Red Cell Distribution Width 13.9 % Platelet Count 197 TH/MM3 Mean Platelet Volume 8.3 FL Neutrophils (%) (Auto) 61.0 % Lymphocytes (%) (Auto) 27.1 % Monocytes (%) (Auto) 7.8 % Eosinophils (%) (Auto) 3.5 % Basophils (%) (Auto) 0.6 % Neutrophils # (Auto) 4.4 TH/MM3 Lymphocytes # (Auto) 2.0 TH/MM3 Monocytes # (Auto) 0.6 TH/MM3 Eosinophils # (Auto) 0.3 TH/MM3 Basophils # (Auto) 0.0 TH/MM3 CBC Comment DIFF FINAL Differential Comment Objective Remarks GENERAL: Well-developed well-nourished. Somewhat agitated. SKIN: Warm and dry. No lesions noted. CARDIOVASCULAR: Regular rate and rhythm. No murmur appreciated. RESPIRATORY: No accessory muscle use. Clear to auscultation. Breath sounds equal bilaterally. GASTROINTESTINAL: Abdomen soft, non-tender, nondistended. Bowel sounds x4. MUSCULOSKELETAL: No obvious deformities. No clubbing or cyanosis. No edema. NEUROLOGICAL: Awake and alert. Right-sided hemiparesis. Moves left side spontaneously. Expressive aphasia. PSYCHIATRIC: Demented but calm mood and affect; insight and judgment poor Medications and IVs Current Medications Medications (Trade) Dose Ordered Sig/Analia Route Start Time Stop Time Status Last Admin (NS Flush) 2 ml UNSCH PRN IV FLUSH 06/19/17 17:00 (NS Flush) 2 ml BID IV FLUSH 06/19/17 21:00 06/29/17 09:00 (Tylenol) 650 mg Q4H PRN PO 06/19/17 17:00 (Zofran Inj) 4 mg Q6H PRN IVP 06/19/17 17:00 (Narcan Inj) 0.4 mg UNSCH PRN IV PUSH 06/19/17 17:00 (Milk Of Magnesia Liq) 30 ml Q12H PRN PO 06/19/17 17:00 (Senokot) 17.2 mg Q12H PRN PO 06/19/17 17:00 (Dulcolax Supp) 10 mg DAILY PRN RECTAL 06/19/17 17:00 (Lactulose Liq) 30 ml DAILY PRN PO 06/19/17 17:00 (Lipitor) 20 mg HS PO 06/19/17 21:00 07/01/17 20:47 (Plavix) 75 mg DAILY PO 06/20/17 09:00 07/02/17 09:51 (Keppra) 500 mg BID PO 06/19/17 21:00 07/02/17 10:02 (SEROquel) 300 mg HS PO 06/19/17 21:00 07/01/17 20:47 (NovoLIN R SUPPLEMENTAL SCALE) 1 ACHS SLIDING SCALE SQ 06/19/17 17:00 07/01/17 21:21 (Lactulose Liq) 30 ml DAILY PO 06/19/17 17:30 07/02/17 09:51 (Ativan) 1 mg Q6H PRN PO 06/20/17 10:00 06/30/17 10:37 (Depakote Sprinkles) 250 mg BID PO 06/21/17 21:00 07/02/17 09:57 (Haldol Inj) 2 mg Q8H PRN IM 06/23/17 12:15 06/30/17 10:20 (SEROquel) 100 mg DAILY PO 07/02/17 09:00 07/02/17 09:51 A/P Assessment and Plan 56-year-old male with a past medical history of CVA with residual aphasia, unspecified dementia, mood disorder, diabetes, HLD who was sent from SNF under Ybarra act for aggressive behavior. The patient was seen by psychiatry in the ED and Ybarra act was lifted as condition was felt to be more neurologic. The patient was medically cleared from the ED, however the patient's facility would not take him back. The patient was admitted to the hospitalist service due to chronic issues and social issues. Dementia with behavioral disturbances/reported history of anxiety and bipolar disorder: Presented under Ybarra act, lifted by psychiatry in ED. Medical workup essentially unremarkable except for mildly elevated ammonia as below. Continue patient's home Depakote, Seroquel, and Ativan as needed. PT consulted. Reconsulted psychiatry for assistance with psychotropic medications , increased Depakote dosing. Restraints and Haldol if needed for agitation, although currently doing well. 06/26 Will start Seroquel in am. 06/27 Will Give Influenza and Pneumovax. 06/28 mood more stable. Continue current management. 06/30 patient agitated, will increase am dose of Seroquel. 07/01 Behavior improved however still somewhat agitated during the day. Increase dose of Seroquel to 100 mg po daily. 07/02 Improving today but as per Special Education Resource Room Teacher will need psychiatry specialist consult was asked. Reported history of hepatitis C with elevated ammonia: LFTs are essentially wnl , however ammonia was elevated at 47. Started lactulose, although patient has been refusing some doses, continue lactulose. Abnormal TSH: TSH mildly elevated but free T4 within normal limits. Recommend repeat thyroid function and 4-6 weeks. Diabetes mellitus: Metformin on hold. Monitor Accu-Cheks. Continue sliding scale coverage. Blood sugars stable. History of CVA with reported residual expressive aphasia: Continue home Plavix and statin. DVT prophylaxis: SCDs CODE STATUS: Signed DNR is in the patient's chart from SNF Discharge Planning 06/30/17 [facility] has denied pt due to aggressive behaviors. Called [facility] [phone] left VM asking for a fax # so that referral could be sent over. Placed a call to [facility] and she has no male beds at this time. [facility] denied due to no locked unit. [facility] only has short term rehab beds available. Tong Cole MD Jul 02, 2017 10:43
[2017-07-02 12:00] VITALS: BP 143/82; PULSE 75; RESP 20; TEMP 98; O2SAT 99
[2017-07-02 16:00] VITALS: BP 127/64; PULSE 60; RESP 20; TEMP 97.8; O2SAT 98
[2017-07-02 20:00] VITALS: BP 136/69; PULSE 72; RESP 20; TEMP 96.6; O2SAT 100
[2017-07-02] MEDS: LORazepam 1 MG TAB PO PRN (20:28)
[2017-07-02] MEDS: SODIUM CHLORIDE 0.9% FLUSH 10 ML FLUSH IV FLUSH SCH (20:28)
[2017-07-02] MEDS: QUEtiapine FUMARATE 300 MG TAB PO SCH (20:28)
[2017-07-02] MEDS: ATORVASTATIN 20 MG TAB PO SCH (20:28)
[2017-07-03 00:36] VITALS: BP 113/75; PULSE 85; RESP 20; TEMP 97.1; O2SAT 95
[2017-07-03 04:00] VITALS: BP 118/65; PULSE 74; RESP 18; TEMP 97.1; O2SAT 97
[2017-07-03] MEDS: LORazepam 1 MG TAB PO PRN ×2 (06:18→21:18)
[2017-07-03 08:00] VITALS: BP_SYST 129; BP_SYST 152; BP_DIAS 61; BP_DIAS 79; PULSE 75; PULSE 84; RESP 18; RESP 20; TEMP 97.6; TEMP 97.7; O2SAT 100; O2SAT 95
[2017-07-03] MEDS: INSULIN NovoLIN REGULAR SUPPLEMENTAL SCALE SQ SCH ×4 (08:00→20:39)
[2017-07-03] MEDS: SODIUM CHLORIDE 0.9% FLUSH 10 ML FLUSH IV FLUSH SCH ×2 (09:00→20:38)
[2017-07-03] MEDS: CLOPIDOGREL 75 MG TAB PO SCH (09:42)
[2017-07-03] MEDS: LACTULOSE SYRUP 20 GM/30 ML CUP PO SCH (09:42)
[2017-07-03] MEDS: DIVALPROEX SODIUM SPRINKLES 125 MG CAP PO SCH ×2 (09:42→20:38)
[2017-07-03] MEDS: levETIRAcetam 500 MG TAB PO SCH ×2 (09:42→20:38)
[2017-07-03] MEDS: QUEtiapine FUMARATE 100 MG TAB PO SCH (09:42)
--- NOTE | 2017-07-03 11:25 | HHI.PR ---
Subjective Remarks Patient stable in his bedroom, Behavior improving, was recommended by Management to get new Psychiatry specialist consult. asked today no nausea, vomit or diarrhea, discussed with Daycare Director He will need new evaluation by Psychiatry to assess his Medications and adjust them to improving aggressivity, he is not been accepted to any facility due to this issue. 07/03: Seen in his bedroom continue with some confusion, Expressive aphasia and Right Hemiparesis, no nausea, vomit or diarrhea. Objective Vital Signs Date Time Temp Pulse Resp B/P (MAP) Pulse Ox O2 Delivery O2 Flow Rate FiO2 07/03/17 08:00 97.7 75 20 152/79 (103) 100 07/03/17 04:00 97.1 74 18 118/65 (82) 97 07/03/17 00:36 97.1 85 20 113/75 (88) 95 07/02/17 20:00 96.6 72 20 136/69 (91) 100 07/02/17 16:00 97.8 60 20 127/64 (85) 98 07/02/17 12:00 98.0 75 20 143/82 (102) 99 I/O 07/02/17 07/02/17 07/02/17 07/03/17 07/03/17 07/03/17 07:00 15:00 23:00 07:00 15:00 23:00 Intake Total 1050 ml 90 ml Output Total 1050 ml Balance 0 ml 90 ml Intake Oral 1050 ml 90 ml Output Urine Total 1050 ml # Voids 4 1 2 # Bowel Movements 2 Result Diagram: 07/01/17 0738 07/01/17 0733 Imaging No new imaging studies. Procedures None Other Results Laboratory Tests Test 06/17/17 19:39 06/17/17 20:00 06/18/17 18:33 06/23/17 12:00 Valproic Acid (Depakene) Level 57 MCG/ML Urine Color YELLOW Urine Turbidity CLEAR Urine pH 7.0 Urine Specific [place] 1.019 Urine Protein NEG mg/dL Urine Glucose (UA) 70 mg/dL Urine Ketones 10 mg/dL Urine Occult Blood NEG Urine Nitrite NEG Urine Bilirubin NEG Urine Urobilinogen 8.0 MG/DL Urine Leukocyte Esterase NEG Urine WBC 2 /hpf Microscopic Urinalysis Comment CULT NOT INDICATED Urine Opiates Screen NEG Urine Barbiturates Screen NEG Urine Amphetamines Screen NEG Urine Benzodiazepines Screen NEG Urine Cocaine Screen NEG Urine Cannabinoids Screen NEG Prothrombin Time 11.3 SEC Prothromb Time International Ratio 1.0 RATIO Activated Partial Thromboplast Time 26.2 SEC Ammonia 24 MCMOL/L Free Thyroxine 1.28 NG/DL Thyroid Stimulating Hormone 3rd Gen 4.850 uIU/ML Test 07/01/17 07:33 07/01/17 07:38 Blood Urea Nitrogen 17 MG/DL Creatinine 0.81 MG/DL Random Glucose 135 MG/DL Total Protein 8.2 GM/DL Albumin 3.6 GM/DL Calcium Level 9.0 MG/DL Alkaline Phosphatase 53 U/L Aspartate Amino Transf (AST/SGOT) 47 U/L Alanine Aminotransferase (ALT/SGPT) 77 U/L Total Bilirubin 0.5 MG/DL Sodium Level 139 MEQ/L Potassium Level 4.0 MEQ/L Chloride Level 107 MEQ/L Carbon Dioxide Level 25.1 MEQ/L Anion Gap 7 MEQ/L Estimat Glomerular Filtration Rate 99 ML/MIN White Blood Count 7.3 TH/MM3 Red Blood Count 4.92 MIL/MM3 Hemoglobin 14.2 GM/DL Hematocrit 41.2 % Mean Corpuscular Volume 83.6 FL Mean Corpuscular Hemoglobin 28.9 PG Mean Corpuscular Hemoglobin Concent 34.6 % Red Cell Distribution Width 13.9 % Platelet Count 197 TH/MM3 Mean Platelet Volume 8.3 FL Neutrophils (%) (Auto) 61.0 % Lymphocytes (%) (Auto) 27.1 % Monocytes (%) (Auto) 7.8 % Eosinophils (%) (Auto) 3.5 % Basophils (%) (Auto) 0.6 % Neutrophils # (Auto) 4.4 TH/MM3 Lymphocytes # (Auto) 2.0 TH/MM3 Monocytes # (Auto) 0.6 TH/MM3 Eosinophils # (Auto) 0.3 TH/MM3 Basophils # (Auto) 0.0 TH/MM3 CBC Comment DIFF FINAL Differential Comment Objective Remarks GENERAL: Well-developed well-nourished. Somewhat agitated. SKIN: Warm and dry. No lesions noted. CARDIOVASCULAR: Regular rate and rhythm. No murmur appreciated. RESPIRATORY: No accessory muscle use. Clear to auscultation. Breath sounds equal bilaterally. GASTROINTESTINAL: Abdomen soft, non-tender, nondistended. Bowel sounds x4. MUSCULOSKELETAL: No obvious deformities. No clubbing or cyanosis. No edema. NEUROLOGICAL: Awake and alert. Right-sided hemiparesis. Moves left side spontaneously. Expressive aphasia. PSYCHIATRIC: Demented but calm mood and affect; insight and judgment poor Medications and IVs Current Medications Medications (Trade) Dose Ordered Sig/Analia Route Start Time Stop Time Status Last Admin (NS Flush) 2 ml UNSCH PRN IV FLUSH 06/19/17 17:00 (NS Flush) 2 ml BID IV FLUSH 06/19/17 21:00 06/29/17 09:00 (Tylenol) 650 mg Q4H PRN PO 06/19/17 17:00 (Zofran Inj) 4 mg Q6H PRN IVP 06/19/17 17:00 (Narcan Inj) 0.4 mg UNSCH PRN IV PUSH 06/19/17 17:00 (Milk Of Magnesia Liq) 30 ml Q12H PRN PO 06/19/17 17:00 (Senokot) 17.2 mg Q12H PRN PO 06/19/17 17:00 (Dulcolax Supp) 10 mg DAILY PRN RECTAL 06/19/17 17:00 (Lactulose Liq) 30 ml DAILY PRN PO 06/19/17 17:00 (Lipitor) 20 mg HS PO 06/19/17 21:00 07/02/17 20:28 (Plavix) 75 mg DAILY PO 06/20/17 09:00 07/03/17 09:42 (Keppra) 500 mg BID PO 06/19/17 21:00 07/03/17 09:42 (SEROquel) 300 mg HS PO 06/19/17 21:00 07/02/17 20:28 (NovoLIN R SUPPLEMENTAL SCALE) 1 ACHS SLIDING SCALE SQ 06/19/17 17:00 07/02/17 21:57 (Lactulose Liq) 30 ml DAILY PO 06/19/17 17:30 07/03/17 09:42 (Ativan) 1 mg Q6H PRN PO 06/20/17 10:00 07/03/17 06:18 (Depakote Sprinkles) 250 mg BID PO 06/21/17 21:00 07/03/17 09:42 (Haldol Inj) 2 mg Q8H PRN IM 06/23/17 12:15 06/30/17 10:20 (SEROquel) 100 mg DAILY PO 07/02/17 09:00 07/03/17 09:42 A/P Assessment and Plan 56-year-old male with a past medical history of CVA with residual aphasia, unspecified dementia, mood disorder, diabetes, HLD who was sent from SNF under Ybarra act for aggressive behavior. The patient was seen by psychiatry in the ED and Ybarra act was lifted as condition was felt to be more neurologic. The patient was medically cleared from the ED, however the patient's facility would not take him back. The patient was admitted to the hospitalist service due to chronic issues and social issues. Dementia with behavioral disturbances/reported history of anxiety and bipolar disorder: Presented under Ybarra act, lifted by psychiatry in ED. Medical workup essentially unremarkable except for mildly elevated ammonia as below. Continue patient's home Depakote, Seroquel, and Ativan as needed. PT consulted. Reconsulted psychiatry for assistance with psychotropic medications , increased Depakote dosing. Restraints and Haldol if needed for agitation, although currently doing well. 06/26 Will start Seroquel in am. 06/27 Will Give Influenza and Pneumovax. 06/28 mood more stable. Continue current management. 06/30 patient agitated, will increase am dose of Seroquel. 07/01 Behavior improved however still somewhat agitated during the day. Increase dose of Seroquel to 100 mg po daily. 07/02 Improving today but as per Daycare Director will need psychiatry specialist consult was asked. 07/03 not yet seen by Psychiatry to adjust medicines, will follow recommendations Reported history of hepatitis C with elevated ammonia: LFTs are essentially wnl , however ammonia improved. lactulose, although patient has been refusing some doses, continue lactulose. Abnormal TSH: TSH mildly elevated but free T4 within normal limits. Recommend repeat thyroid function and 4-6 weeks. Diabetes mellitus: Metformin on hold. Monitor Accu-Cheks. Continue sliding scale coverage. Blood sugars stable. History of CVA with reported residual expressive aphasia: Continue home Plavix and statin. DVT prophylaxis: SCDs CODE STATUS: Signed DNR is in the patient's chart from SNF Discharge Planning 06/30/17 [facility] has denied pt due to aggressive behaviors. Called [facility] [phone] left VM asking for a fax # so that referral could be sent over. Placed a call to [facility] and she has no male beds at this time. [facility] denied due to no locked unit. [facility] only has short term rehab beds available. Tong Cole MD Jul 03, 2017 11:25
[2017-07-03 12:00] VITALS: BP 127/70; PULSE 78; RESP 20; TEMP 97.4; O2SAT 98
--- NOTE | 2017-07-03 15:42 | HHI.PYPN ---
Subjective Remarks still aggressive Review of Systems Except as stated in HPI: all other systems reviewed are Neg Mental Status Examination Appearance: Appropriate, Disheveled Consciousness: Alert Orientation: Person, Place Motor Activity: Normal gait Speech: Incoherent, Other Language: Other Fund of Knowledge: Adequate Attention and Concentration: Adequate Memory: Unremarkable Mood: Anxious, Irritable Affect: Irritable Thought Process & Associations: Other Thought Content: Other Hallucination Type: None Delusion Type: None Suicidal Ideation: No Suicidal Plan: No Suicidal Intention: No Homicidal Ideation: No Homicidal Plan: No Homicidal Intention: No Insight: Adequate Judgment: Adequate Results Vitals/IOs Vital Signs Date Time Temp Pulse Resp B/P (MAP) Pulse Ox O2 Delivery O2 Flow Rate FiO2 07/03/17 12:00 97.4 78 20 127/70 (89) 98 Intake and Output 07/03/17 07/03/17 07/04/17 08:00 16:00 00:00 Intake Total 90 ml Balance 90 ml Assessment & Plan Problem List: (1) Dementia with behavioral disturbance ICD Codes: F03.91 - Unspecified dementia with behavioral disturbance Status: Acute Assessment & Plan Estimated LOS: daysstill aggressive.. neuro impaired. Increase Seroquel and add Klonopin. Justification for Cont. Inpt. aggressive Problem Qualifiers (1) Dementia with behavioral disturbance: Qualified Codes: F03.91 - Unspecified dementia with behavioral disturbance Landon Drummond MD Jul 03, 2017 15:42
[2017-07-03 16:00] VITALS: BP 133/73; PULSE 82; RESP 20; TEMP 97.9; O2SAT 98
[2017-07-03 20:00] VITALS: BP 132/65; PULSE 69; RESP 20; TEMP 97.3; O2SAT 95
[2017-07-03] MEDS: ATORVASTATIN 20 MG TAB PO SCH (20:37)
[2017-07-03] MEDS: clonazePAM 1 MG TAB PO SCH (20:38)
[2017-07-03] MEDS: QUEtiapine FUMARATE 300 MG TAB PO SCH (20:38)
[2017-07-04] VITALS: BP 131/52; PULSE 61; RESP 18; TEMP 97; O2SAT 97
[2017-07-04 04:00] VITALS: BP 140/71; PULSE 82; RESP 18; TEMP 97.5; O2SAT 98
[2017-07-04] MEDS: LORazepam 1 MG TAB PO PRN (05:05)
[2017-07-04] MEDS: INSULIN NovoLIN REGULAR SUPPLEMENTAL SCALE SQ SCH ×2 (08:00→12:00)
--- NOTE | 2017-07-04 08:23 | HHI.PR ---
Subjective Remarks Patient stable in his bedroom, Behavior improving, was recommended by Management to get new Psychiatry specialist consult. asked today no nausea, vomit or diarrhea, discussed with Continuous Crusher Operator He will need new evaluation by Psychiatry to assess his Medications and adjust them to improving aggressivity, he is not been accepted to any facility due to this issue. 07/03: Seen in his bedroom continue with some confusion, Expressive aphasia and Right Hemiparesis. 07/04: Stable in his bedroom, accepted to Psychiatric unit, okay to transfer to Inpatient Psychiatric unit now, no nausea, vomit or diarrhea. Objective Vital Signs Date Time Temp Pulse Resp B/P (MAP) Pulse Ox O2 Delivery O2 Flow Rate FiO2 07/04/17 04:00 97.5 82 18 140/71 (94) 98 07/04/17 00:00 97.0 61 18 131/52 (78) 97 07/03/17 20:00 97.3 69 20 132/65 (87) 95 07/03/17 16:00 97.9 82 20 133/73 (93) 98 07/03/17 12:00 97.4 78 20 127/70 (89) 98 I/O 07/03/17 07/03/17 07/03/17 07/04/17 07/04/17 07/04/17 07:00 15:00 23:00 07:00 15:00 23:00 Intake Total 90 ml Output Total 225 ml Balance 90 ml -225 ml Intake Oral 90 ml Output Urine Total 225 ml # Voids 2 3 # Bowel Movements 2 Result Diagram: 07/01/17 0738 07/01/17 0733 Imaging No new imaging studies. Procedures None Other Results Laboratory Tests Test 06/17/17 19:39 06/17/17 20:00 06/18/17 18:33 06/23/17 12:00 Valproic Acid (Depakene) Level 57 MCG/ML Urine Color YELLOW Urine Turbidity CLEAR Urine pH 7.0 Urine Specific [place] 1.019 Urine Protein NEG mg/dL Urine Glucose (UA) 70 mg/dL Urine Ketones 10 mg/dL Urine Occult Blood NEG Urine Nitrite NEG Urine Bilirubin NEG Urine Urobilinogen 8.0 MG/DL Urine Leukocyte Esterase NEG Urine WBC 2 /hpf Microscopic Urinalysis Comment CULT NOT INDICATED Urine Opiates Screen NEG Urine Barbiturates Screen NEG Urine Amphetamines Screen NEG Urine Benzodiazepines Screen NEG Urine Cocaine Screen NEG Urine Cannabinoids Screen NEG Prothrombin Time 11.3 SEC Prothromb Time International Ratio 1.0 RATIO Activated Partial Thromboplast Time 26.2 SEC Ammonia 24 MCMOL/L Free Thyroxine 1.28 NG/DL Thyroid Stimulating Hormone 3rd Gen 4.850 uIU/ML Test 07/01/17 07:33 07/01/17 07:38 Blood Urea Nitrogen 17 MG/DL Creatinine 0.81 MG/DL Random Glucose 135 MG/DL Total Protein 8.2 GM/DL Albumin 3.6 GM/DL Calcium Level 9.0 MG/DL Alkaline Phosphatase 53 U/L Aspartate Amino Transf (AST/SGOT) 47 U/L Alanine Aminotransferase (ALT/SGPT) 77 U/L Total Bilirubin 0.5 MG/DL Sodium Level 139 MEQ/L Potassium Level 4.0 MEQ/L Chloride Level 107 MEQ/L Carbon Dioxide Level 25.1 MEQ/L Anion Gap 7 MEQ/L Estimat Glomerular Filtration Rate 99 ML/MIN White Blood Count 7.3 TH/MM3 Red Blood Count 4.92 MIL/MM3 Hemoglobin 14.2 GM/DL Hematocrit 41.2 % Mean Corpuscular Volume 83.6 FL Mean Corpuscular Hemoglobin 28.9 PG Mean Corpuscular Hemoglobin Concent 34.6 % Red Cell Distribution Width 13.9 % Platelet Count 197 TH/MM3 Mean Platelet Volume 8.3 FL Neutrophils (%) (Auto) 61.0 % Lymphocytes (%) (Auto) 27.1 % Monocytes (%) (Auto) 7.8 % Eosinophils (%) (Auto) 3.5 % Basophils (%) (Auto) 0.6 % Neutrophils # (Auto) 4.4 TH/MM3 Lymphocytes # (Auto) 2.0 TH/MM3 Monocytes # (Auto) 0.6 TH/MM3 Eosinophils # (Auto) 0.3 TH/MM3 Basophils # (Auto) 0.0 TH/MM3 CBC Comment DIFF FINAL Differential Comment Objective Remarks GENERAL: Well-developed well-nourished. Somewhat agitated. SKIN: Warm and dry. No lesions noted. CARDIOVASCULAR: Regular rate and rhythm. No murmur appreciated. RESPIRATORY: No accessory muscle use. Clear to auscultation. Breath sounds equal bilaterally. GASTROINTESTINAL: Abdomen soft, non-tender, nondistended. Bowel sounds x4. MUSCULOSKELETAL: No obvious deformities. No clubbing or cyanosis. No edema. NEUROLOGICAL: Awake and alert. Right-sided hemiparesis. Moves left side spontaneously. Expressive aphasia. PSYCHIATRIC: Demented but calm mood and affect; insight and judgment poor Medications and IVs Current Medications Medications (Trade) Dose Ordered Sig/Analia Route Start Time Stop Time Status Last Admin (NS Flush) 2 ml UNSCH PRN IV FLUSH 06/19/17 17:00 (NS Flush) 2 ml BID IV FLUSH 06/19/17 21:00 06/29/17 09:00 (Tylenol) 650 mg Q4H PRN PO 06/19/17 17:00 (Zofran Inj) 4 mg Q6H PRN IVP 06/19/17 17:00 (Narcan Inj) 0.4 mg UNSCH PRN IV PUSH 06/19/17 17:00 (Milk Of Magnesia Liq) 30 ml Q12H PRN PO 06/19/17 17:00 (Senokot) 17.2 mg Q12H PRN PO 06/19/17 17:00 (Dulcolax Supp) 10 mg DAILY PRN RECTAL 06/19/17 17:00 (Lactulose Liq) 30 ml DAILY PRN PO 06/19/17 17:00 (Lipitor) 20 mg HS PO 06/19/17 21:00 07/03/17 20:37 (Plavix) 75 mg DAILY PO 06/20/17 09:00 07/03/17 09:42 (Keppra) 500 mg BID PO 06/19/17 21:00 07/03/17 20:38 (SEROquel) 300 mg HS PO 06/19/17 21:00 07/03/17 20:38 (NovoLIN R SUPPLEMENTAL SCALE) 1 ACHS SLIDING SCALE SQ 06/19/17 17:00 07/03/17 18:30 (Lactulose Liq) 30 ml DAILY PO 06/19/17 17:30 07/03/17 09:42 (Ativan) 1 mg Q6H PRN PO 06/20/17 10:00 07/04/17 05:05 (Depakote Sprinkles) 250 mg BID PO 06/21/17 21:00 07/03/17 20:38 (Haldol Inj) 2 mg Q8H PRN IM 06/23/17 12:15 06/30/17 10:20 (SEROquel) 300 mg DAILY PO 07/04/17 09:00 (KlonoPIN) 1 mg Q12HR PO 07/03/17 21:00 07/03/17 20:38 A/P Assessment and Plan 56-year-old male with a past medical history of CVA with residual aphasia, unspecified dementia, mood disorder, diabetes, HLD who was sent from SNF under Ybarra act for aggressive behavior. The patient was seen by psychiatry in the ED and Ybarra act was lifted as condition was felt to be more neurologic. The patient was medically cleared from the ED, however the patient's facility would not take him back. The patient was admitted to the hospitalist service due to chronic issues and social issues. Dementia with behavioral disturbances/reported history of anxiety and bipolar disorder: Presented under Ybarra act, lifted by psychiatry in ED. Medical workup essentially unremarkable except for mildly elevated ammonia as below. Continue patient's home Depakote, Seroquel, and Ativan as needed. PT consulted. Reconsulted psychiatry for assistance with psychotropic medications , increased Depakote dosing. Restraints and Haldol if needed for agitation, although currently doing well. 06/26 Will start Seroquel in am. 06/27 Will Give Influenza and Pneumovax. 06/28 mood more stable. Continue current management. 06/30 patient agitated, will increase am dose of Seroquel. 07/01 Behavior improved however still somewhat agitated during the day. Increase dose of Seroquel to 100 mg po daily. 07/02 Improving today but as per Continuous Crusher Operator will need psychiatry specialist consult was asked. 07/03 not yet seen by Psychiatry to adjust medicines, due to that continue aggressive, increased dosages of Seroquel and Klonopin Accepted to Inpatient psychiatric unit. by Doctor Landon Drummond. Reported history of hepatitis C with elevated ammonia: LFTs are essentially wnl , however ammonia improved. lactulose, although patient has been refusing some doses, continue lactulose. Abnormal TSH: TSH mildly elevated but free T4 within normal limits. Recommend repeat thyroid function and 4-6 weeks. Diabetes mellitus: Metformin on hold. Monitor Accu-Cheks. Continue sliding scale coverage. Blood sugars stable. History of CVA with reported residual expressive aphasia and Right Hemiparesis. : Continue home Plavix and statin. DVT prophylaxis: SCDs CODE STATUS: Signed DNR Transfer to Inpatient Psychiatric unit. Discharge Planning Transfer to Inpatient Psychiatric unit, Medically cleared for inpatient psychiatric unit. Tong Cole MD Jul 04, 2017 08:23
[2017-07-04] MEDS: SODIUM CHLORIDE 0.9% FLUSH 10 ML FLUSH IV FLUSH SCH (09:00)
[2017-07-04] MEDS ORDERED: QUEtiapine FUMARATE 300 MG TAB PO SCH (09:00)
[2017-07-04] MEDS: levETIRAcetam 500 MG TAB PO SCH (09:16)
[2017-07-04] MEDS: DIVALPROEX SODIUM SPRINKLES 125 MG CAP PO SCH (09:16)
[2017-07-04] MEDS: clonazePAM 1 MG TAB PO SCH (09:17)
[2017-07-04] MEDS: CLOPIDOGREL 75 MG TAB PO SCH (09:17)
[2017-07-04] MEDS: LACTULOSE SYRUP 20 GM/30 ML CUP PO SCH (09:17)
--- NOTE | 2017-07-04 10:40 | PD.HHIRCNE ---
Patient History Record/History Review Reason for Referral: The patient is a 56 year old right handed male with a history of left CVA and expressive aphasia, who since his admission has been combative and agitated. Psychiatry was consulted and continues to pharmacologically manage this patient from a neurobehavioral standpoint. He is now day 15 since his admission. He was referred for baseline neurobehavioral status examination to assess cognitive , behavioral and emotional aspects of the injury and to provide treatment recommendations. Neuropsych Precautions: To be determined. Past Surgical/Medical History Major surgery in last 100 days: Unknown Hx Seizures: Yes Hx Cerebrovascular Accident: Yes Hypertension (High Blood Press: Yes Hx Diabetes: Yes Does Patient Currently Take Gl: No Hx of Eye Probl: No Hx Anxiety: Yes Hx Depression: Yes Medication Active Medications Clonazepam (KlonoPIN) 1 mg Q12HR PO Last administered on 07/04/17 09:17; Admin Dose 1 MG; Start 07/03/17 at 21:00 Quetiapine Fumarate (SEROquel) 300 mg DAILY PO Last administered on 07/04/17 09 :16; Admin Dose 300 MG; Start 07/04/17 at 09:00 Mental Status Assessment Orientation: unable to asses Self, unable to asses Place, unable to asses Time , unable to asses Situation Mental Status: Impaired: Language/Interactions Observation The patient is alert but expressively aphasic, and consequently formal assessment of his neurocognitive status is unable to be completed. More specifically, the patient was unable to initiate spontaneous conversation. Speech was characterized by impaired prosody, grammar, articulation, volume and rate. Basic naming skills were intact. Language repetition skills were unable to be assessed The patients comprehensions for basic one- and two-stage commands was unable to be assessed. The patient appears to posses impaired insight and awareness into their situation and within the limits of this brief evaluation, impaired judgment. Adjustment/Coping Assessment Adjustment/Coping: Severe: Awareness, Insight Observation The patients thought content was unable to be assessed. The patients mood was demanding, and the affect was blunted. LTG Status: Deferred STG Status: Deferred Team Members: Neuropsychologist Behavior Assessment Agitation: Moderate Treatment Engagement: Average Observation Behaviorally, for me today the patient demonstrated no signs of agitation, impulsivity or disinhibition. There was no remarkable evidence of a formal thought disorder or psychosis. It is well documented however, that this patient has numerous episodes of agitated and aggressive behaviors. The current pharmacological intervention appears effective. LTG - Status: Deferred STG Status: Deferred Team Members: Neuropsychologist Diagnosis/Discharge Plan Impression This 56 year old man with a history of left CVA and expressive aphasia, who is experiencing significant neurobehavioral issues related to his stroke history. There would appear to be significant neuropsychological impairment greater than what would be expected 2T his stroke, suggestive of a major neurocognitive disorder. Diagnosis: (1) Major neurocognitive disorder due to vascular disease, without behavioral disturbance, severe Maximizing acute care outcome It is recommended that the patient be monitored for emergent behavioral impulsivity as the medical condition evolves. This patients neuropathological challenges may limit their rehabilitation potential going forward, and these challenges will require specialized therapeutic skills to maximize outcome. I concur with the pharmacological approach as directed by my psychiatric colleagues. It is noteworthy that this patient is not considered cognitive capable of making decisions of a legal, financial or medical nature at this point in his recovery process. He demonstrates the impaired ability to appreciate a situation and its likely consequences and he demonstrates the impaired ability to manage his affairs. Discharge Planning Anticipated Problems Ongoing areas of concern will include behavioral impulsivity, lack of insight and judgment, which may or may not improve with time and treatment. Presently , the patient not consistently following commands. Treatment Plan This clinician will continue to follow with you throughout the course of this patients acute care treatment, and I will be available to meet with the patient s family/support system to facilitate their understanding and the ongoing care of their family member. The goals of neuropsychological intervention shall be both educational and supportive to the family/support system as is deemed clinically appropriate. Discharge Needs To be determined. Thank you Thank you for the opportunity to assist in this patients care. Miles Guerrero, Ph.D., ABPP Board Certified in Clinical Neuropsychology [place] [employer] Professional [employer] [place] Licensed Psychologist #[id number] Miles Guerrero PhD Jul 04, 2017 10:40 am
[2017-07-04 11:46] VITALS: BP 126/78; PULSE 86; RESP 20; TEMP 97.4; O2SAT 95
[2017-07-04] MEDS ORDERED: diphenhydrAMINE HCL 50 MG/ML VIAL IM PRN (12:45)
[2017-07-04] MEDS ORDERED: LORazepam 1 MG TAB PO PRN (12:45)
[2017-07-04] MEDS ORDERED: LORazepam 2 MG/ML VIAL IM PRN (12:45)
[2017-07-04] MEDS ORDERED: MAGNESIUM HYDROXIDE SUSP 30 ML CUP PO PRN (12:45)
[2017-07-04] MEDS ORDERED: diphenhydrAMINE HCL 50 MG CAP PO PRN (12:45)
[2017-07-04] MEDS ORDERED: ALUMINUM/MAGNESIUM/SIMETH 30 ML CUP PO PRN (12:45)
[2017-07-04] MEDS ORDERED: ACETAMINOPHEN 325 MG TAB PO PRN (12:45)
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
[2017-07-04] MEDS: HALOPERIDOL LACTATE 5 MG/ML AMP IM PRN (13:31)
== END 2017-07-04 13:39 ==
LOC: NEDAMB 18:50 → NEDA 06-19 16:44 → NEPHCDU 06-19 18:25 → N05B 06-24 16:42
PROVIDERS: ADMIT Internal Medicine; ATTEND Internal Medicine
DX: F03.91 Unspecified dementia, unspecified severity, with behavioral disturbance (principal); E72.20 Disorder of urea cycle metabolism, unspecified; E11.9 Type 2 diabetes mellitus without complications; F29 Unspecified psychosis not due to a substance or known physiological condition; E78.5 Hyperlipidemia, unspecified; F31.9 Bipolar disorder, unspecified; F41.9 Anxiety disorder, unspecified; B19.20 Unspecified viral hepatitis C without hepatic coma; I10 Essential (primary) hypertension; I69.320 Aphasia following cerebral infarction; I69.351 Hemiplegia and hemiparesis following cerebral infarction affecting right dominant side; R32 Unspecified urinary incontinence; Z79.899 Other long term (current) drug therapy; Z78.1 Physical restraint status; Z66 Do not resuscitate; Z23 Encounter for immunization
CPT/HCPCS: 80048; 80053; 80164; 80307; 81001; 82140; 82948; 84439; 84443; 85025; 85610; 85730; 90686; 90732; 96372; 97110; 97116; 97163; 99285; G0378; G8987; G8988; J1630; P9612; Q2038

== ENCOUNTER 2017-07-04 14:16 | Inpatient (IN) | payer OTHER ==
[~2017-07-04] VITALS: Ht 175.3 cm; Wt 77.0 kg
[~2017-07-04 14:16] MED LIST: ATOR20TA15 PO; CLOP75TA PO; DIPH25TA2 PO; DIVA125C PO; HUMALOG SQ; LEVE500 PO; LORA1TAB12 ID; METF500T PO; QUET1TAB7 PO; QUET5TAB PO
[2017-07-04 14:29] VITALS: BP 135/73; PULSE 93; RESP 18; TEMP 97.7; O2SAT 98
[2017-07-04] MEDS: LOW DOSE INSULIN NOVOLIN REGULAR SUPPLEMENTAL SCALE SQ SCH ×2 (16:30→21:16)
[2017-07-04] MEDS ORDERED: GLUCAGON 1 MG/ML VIAL OTHER PRN (16:45)
[2017-07-04] MEDS ORDERED: DEXTROSE 50% IN WATER 50 ML VIAL(D50) IV PUSH PRN (16:45)
[2017-07-04] MEDS ORDERED: LORazepam 2 MG/ML VIAL ONE (16:58)
[2017-07-04] MEDS ORDERED: HALOPERIDOL LACTATE 5 MG/ML AMP ONE (16:59)
[2017-07-04 18:00] VITALS: BP 127/69; PULSE 91; RESP 18; TEMP 97.4; O2SAT 98
[2017-07-04] MEDS: metFORMIN HCL 500 MG TAB PO SCH (18:00)
[2017-07-04] MEDS ORDERED: LORazepam 1 MG TAB PO PRN (18:00)
[2017-07-04] MEDS ORDERED: HALOPERIDOL 2 MG TAB PO PRN (18:00)
[2017-07-04] MEDS ORDERED: LORazepam 2 MG/ML VIAL IM PRN (18:00)
[2017-07-04] MEDS ORDERED: HALOPERIDOL LACTATE 5 MG/ML AMP IM PRN (18:00)
[2017-07-04] MEDS ORDERED: DIVALPROEX SODIUM SPRINKLES 125 MG CAP PO SCH (21:00)
[2017-07-04] MEDS: levETIRAcetam 500 MG TAB PO SCH (21:17)
[2017-07-04] MEDS: QUEtiapine FUMARATE 300 MG TAB PO SCH (21:17)
[2017-07-04] MEDS: clonazePAM 1 MG TAB PO SCH (21:17)
[2017-07-04] MEDS: ATORVASTATIN 20 MG TAB PO SCH (21:17)
[2017-07-05 05:41] VITALS: BP 132/70; PULSE 85; RESP 17; TEMP 97.8; O2SAT 96
[2017-07-05] MEDS: LOW DOSE INSULIN NOVOLIN REGULAR SUPPLEMENTAL SCALE SQ SCH ×4 (08:00→21:00)
[2017-07-05] MEDS: levETIRAcetam 500 MG TAB PO SCH ×2 (08:24→21:10)
[2017-07-05] MEDS: clonazePAM 1 MG TAB PO SCH ×2 (08:24→21:09)
[2017-07-05] MEDS: QUEtiapine FUMARATE 300 MG TAB PO SCH ×2 (08:24→21:09)
[2017-07-05] MEDS: metFORMIN HCL 500 MG TAB PO SCH ×2 (08:25→18:00)
[2017-07-05] MEDS: CLOPIDOGREL 75 MG TAB PO SCH (08:25)
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
[2017-07-05] MEDS: DIVALPROEX SODIUM SPRINKLES 125 MG CAP PO SCH ×2 (09:00→21:09)
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
--- NOTE | 2017-07-05 16:13 | EKG ---
Date Performed: 07/05/2017 Time Performed: 12:33:35 PTAGE: 56 years EKG: Sinus rhythm INFERIOR MYOCARDIAL INFARCTION , PROBABLY OLD NON-SPECIFIC ST/T WAVE CHANGES ABNORMAL ECG NO PREVIOUS TRACING DOCTOR: Yasir Kaur Interpretating Date/Time 07/05/2017 16:12:30
[2017-07-05 18:15] VITALS: BP 123/71; PULSE 76; RESP 18; TEMP 97.5; O2SAT 100
[2017-07-05] MEDS: ATORVASTATIN 20 MG TAB PO SCH (21:10)
[2017-07-06 06:24] VITALS: BP 125/80; PULSE 95; RESP 17; O2SAT 95
[2017-07-06] MEDS: LOW DOSE INSULIN NOVOLIN REGULAR SUPPLEMENTAL SCALE SQ SCH ×4 (08:00→20:15)
[2017-07-06] MEDS: metFORMIN HCL 500 MG TAB PO SCH ×2 (09:17→17:08)
[2017-07-06] MEDS: CLOPIDOGREL 75 MG TAB PO SCH (09:17)
[2017-07-06] MEDS: clonazePAM 1 MG TAB PO SCH ×2 (09:18→20:13)
[2017-07-06] MEDS: DIVALPROEX SODIUM SPRINKLES 125 MG CAP PO SCH ×2 (09:18→20:13)
[2017-07-06] MEDS: QUEtiapine FUMARATE 300 MG TAB PO SCH ×2 (09:18→20:13)
[2017-07-06] MEDS: levETIRAcetam 500 MG TAB PO SCH ×2 (09:18→20:13)
--- NOTE | 2017-07-06 11:47 | HHI.PYPN ---
Subjective Remarks Patient seen in his room with counselor Sulaiman. Chart review. Patient compliant medication. Patient continues a significant expressive aphasia. There is some anxiety and arousable at times related to this. For now continue treatment Chief Complaint: Dementia with behavioral disturbance Review of Systems Except as stated in HPI: all other systems reviewed are Neg Mental Status Examination Appearance: Appropriate, Disheveled Consciousness: Alert Orientation: Person Motor Activity: Other (Motor exam as above) Speech: Other (Expressive aphasia) Language: Other (Abnormal) Fund of Knowledge: Inadequate Attention and Concentration: Easily Distracted Memory: Impaired Mood: Other (?depressed, unclear) Affect: Blunt Thought Process & Associations: Disorganized Hallucination Type: None (denies AVH) Delusion Type: None (none elicited) Suicidal Ideation: No Homicidal Ideation: No Insight: Poor Judgment: Poor Results Vitals/IOs Vital Signs Date Time Temp Pulse Resp B/P (MAP) Pulse Ox O2 Delivery O2 Flow Rate FiO2 07/06/17 06:24 95 17 125/80 (95) 95 07/05/17 18:15 97.5 Intake and Output 07/06/17 07/06/17 07/07/17 08:00 16:00 00:00 Intake Total 240 ml Output Total 1 ml Balance 239 ml Assessment & Plan Problem List: (1) Vascular dementia with behavioral disturbance ICD Codes: F01.51 - Vascular dementia with behavioral disturbance Assessment & Plan Estimated LOS: days patient continues 20 confused with significant expressive aphasia. No significant behavioral problems noted at this time Justification for Cont. Inpt. At this time patient decompensate if placed in the lower level of care Discharge Planning Placement may become problematic Request HC Surrog/Guard Advoc?: Yes Noah Luciano MD Jul 06, 2017 11:47
[2017-07-06 18:09] VITALS: BP 118/65; PULSE 99; RESP 18; TEMP 98.2; O2SAT 95
[2017-07-06] MEDS: ATORVASTATIN 20 MG TAB PO SCH (21:00)
[2017-07-07 05:31] VITALS: BP 106/59; PULSE 87; RESP 17; TEMP 97.3; O2SAT 99
[2017-07-07] MEDS: LOW DOSE INSULIN NOVOLIN REGULAR SUPPLEMENTAL SCALE SQ SCH ×4 (07:28→20:06)
[2017-07-07] MEDS: metFORMIN HCL 500 MG TAB PO SCH ×2 (08:52→17:31)
[2017-07-07] MEDS: clonazePAM 1 MG TAB PO SCH ×2 (08:52→21:18)
[2017-07-07] MEDS: DIVALPROEX SODIUM SPRINKLES 125 MG CAP PO SCH ×2 (08:52→21:19)
[2017-07-07] MEDS: levETIRAcetam 500 MG TAB PO SCH ×2 (08:52→21:18)
[2017-07-07] MEDS: QUEtiapine FUMARATE 300 MG TAB PO SCH ×2 (08:53→21:19)
[2017-07-07] MEDS: CLOPIDOGREL 75 MG TAB PO SCH (08:54)
--- NOTE | 2017-07-07 09:34 | HHI.PYPN ---
Subjective Remarks Patient seen in dayroom with floor staff, patient sitting quietly in [place] chair , chart reviewed, patient compliant medication. Patient continues diffusely confused markedly a phasic. Times his gaze show some comprehension but the fascia seems to override this. He has been no behavior problems so far today. Patient scheduled for [place] [facility] today Chief Complaint: Dementia with behavioral disturbance Review of Systems Except as stated in HPI: all other systems reviewed are Neg Mental Status Examination Appearance: Appropriate, Disheveled Consciousness: Alert Orientation: Person Motor Activity: Other (Motor exam as above) Speech: Other (Expressive aphasia) Language: Other (Abnormal) Fund of Knowledge: Inadequate Attention and Concentration: Easily Distracted Memory: Impaired Mood: Other (?depressed, unclear) Affect: Blunt Thought Process & Associations: Disorganized Hallucination Type: None (denies AVH) Delusion Type: None (none elicited) Suicidal Ideation: No Homicidal Ideation: No Insight: Poor Judgment: Poor Results Vitals/IOs Vital Signs Date Time Temp Pulse Resp B/P (MAP) Pulse Ox O2 Delivery O2 Flow Rate FiO2 07/07/17 05:31 97.3 87 17 106/59 (75) 99 Intake and Output 07/07/17 07/07/17 07/08/17 08:00 16:00 00:00 Intake Total 360 ml Balance 360 ml Assessment & Plan Problem List: (1) Vascular dementia with behavioral disturbance ICD Codes: F01.51 - Vascular dementia with behavioral disturbance Assessment & Plan Estimated LOS: days patient continues severely demented with significant a fascia. Is calm at the present time Justification for Cont. Inpt. At this time patient decompensated placed in a lower level of care Discharge Planning Patient's prior placement has discharged him placement may become problematic Request HC Surrog/Guard Advoc?: Yes Noah Luciano MD Jul 07, 2017 09:34
[2017-07-07] MEDS: ATORVASTATIN 20 MG TAB PO SCH (21:18)
[2017-07-08] MEDS: LOW DOSE INSULIN NOVOLIN REGULAR SUPPLEMENTAL SCALE SQ SCH ×4 (07:38→20:24)
[2017-07-08] MEDS: clonazePAM 1 MG TAB PO SCH ×2 (07:52→20:24)
[2017-07-08] MEDS: QUEtiapine FUMARATE 300 MG TAB PO SCH ×2 (07:52→20:23)
[2017-07-08] MEDS: DIVALPROEX SODIUM SPRINKLES 125 MG CAP PO SCH ×2 (07:52→20:24)
[2017-07-08] MEDS: levETIRAcetam 500 MG TAB PO SCH ×2 (07:52→20:23)
[2017-07-08] MEDS: metFORMIN HCL 500 MG TAB PO SCH ×2 (07:53→17:16)
[2017-07-08] MEDS: CLOPIDOGREL 75 MG TAB PO SCH (07:53)
--- NOTE | 2017-07-08 09:21 | HHI.PYPN ---
Subjective Remarks Patient seen in day room with medical student corwin, chart review, patient compliant medication. Patient continues alert with significant expressive a fascia. Though there appears to be significant attempts at communication. He is attempting to make appropriate responses by nodding his head and making some grunting noises. His affect is appropriate further questions. He is reactive and at one time broken for small smile. For now continue treatment patient's right-sided weakness continues with no change Chief Complaint: Dementia with behavioral disturbance Review of Systems Except as stated in HPI: all other systems reviewed are Neg Mental Status Examination Appearance: Appropriate, Disheveled Consciousness: Alert Orientation: Person Motor Activity: Other (Motor exam as above) Speech: Other (Expressive aphasia) Language: Other (Abnormal) Fund of Knowledge: Inadequate Attention and Concentration: Easily Distracted Memory: Impaired Mood: Other (?depressed, unclear) Affect: Blunt Thought Process & Associations: Disorganized Hallucination Type: None (denies AVH) Delusion Type: None (none elicited) Suicidal Ideation: No Homicidal Ideation: No Insight: Poor Judgment: Poor Results Vitals/IOs Vital Signs Date Time Temp Pulse Resp B/P (MAP) Pulse Ox O2 Delivery O2 Flow Rate FiO2 07/07/17 05:31 97.3 87 17 106/59 (75) 99 Intake and Output 07/08/17 07/08/17 07/09/17 08:00 16:00 00:00 Intake Total 0 ml Balance 0 ml Assessment & Plan Problem List: (1) Vascular dementia with behavioral disturbance ICD Codes: F01.51 - Vascular dementia with behavioral disturbance Assessment & Plan Estimated LOS: days patient continues with significant expressive aphasia though of also significant attempts to communicate by other methods. Compliant medication Justification for Cont. Inpt. At this time patient will decompensate if placed in a lower level of care Discharge Planning A placement may be difficult due to patient's prior behaviors Request HC Surrog/Guard Advoc?: Yes Noah Luciano MD Jul 08, 2017 09:21
[2017-07-08 18:06] VITALS: BP 140/71; PULSE 84; RESP 16; TEMP 98.1; O2SAT 99
[2017-07-08] MEDS: ATORVASTATIN 20 MG TAB PO SCH (20:23)
[2017-07-09 06:47] VITALS: BP 121/63; PULSE 75; RESP 17; TEMP 98.7; O2SAT 98
[2017-07-09] MEDS: LOW DOSE INSULIN NOVOLIN REGULAR SUPPLEMENTAL SCALE SQ SCH ×4 (08:00→20:32)
[2017-07-09] MEDS: levETIRAcetam 500 MG TAB PO SCH ×2 (08:37→20:26)
[2017-07-09] MEDS: clonazePAM 1 MG TAB PO SCH ×2 (08:37→20:26)
[2017-07-09] MEDS: QUEtiapine FUMARATE 300 MG TAB PO SCH ×2 (08:37→20:27)
[2017-07-09] MEDS: CLOPIDOGREL 75 MG TAB PO SCH (08:38)
[2017-07-09] MEDS: DIVALPROEX SODIUM SPRINKLES 125 MG CAP PO SCH ×2 (08:38→20:27)
[2017-07-09] MEDS: metFORMIN HCL 500 MG TAB PO SCH ×2 (08:38→18:10)
--- NOTE | 2017-07-09 12:01 | HHI.PYPN ---
Subjective Remarks Patient was seen and case discussed with nursing. Communication remains difficult with patient's history of stroke and expressive aphasia. Per nursing , he was crying and tearful asking for his mom. Patient appears to be alert and oriented 2. No outbursts. Affect is constricted and patient appears disheveled. Tolerating medications well. Denies suicidal or homicidal ideation intent or plan. Chief Complaint: Dementia with behavioral disturbance Mental Status Examination Appearance: Appropriate, Disheveled Consciousness: Alert Orientation: Person, Place Motor Activity: Other (Motor exam as above) Speech: Other (Expressive aphasia) Language: Other (Abnormal) Fund of Knowledge: Inadequate Attention and Concentration: Easily Distracted Memory: Impaired Mood: Other (?depressed, unclear) Affect: Blunt Thought Process & Associations: Disorganized Thought Content: Other (not's breast) Hallucination Type: None (denies AVH) Delusion Type: None (none elicited) Suicidal Ideation: No Homicidal Ideation: No Insight: Poor Judgment: Poor Results Vitals/IOs Vital Signs Date Time Temp Pulse Resp B/P (MAP) Pulse Ox O2 Delivery O2 Flow Rate FiO2 07/09/17 06:47 98.7 75 17 121/63 (82) 98 Intake and Output 07/09/17 07/09/17 07/10/17 08:00 16:00 00:00 Intake Total 0 ml 240 ml Balance 0 ml 240 ml Assessment & Plan Problem List: (1) Vascular dementia with behavioral disturbance ICD Codes: F01.51 - Vascular dementia with behavioral disturbance Assessment & Plan Continue current treatment plan Justification for Cont. Inpt. Patient would decompensate in a less restrictive setting Request HC Surrog/Guard Advoc?: Yes Elian Steinberg DO Jul 09, 2017 12:01
[2017-07-09] MEDS: HALOPERIDOL 2 MG TAB PO PRN (14:19)
[2017-07-09 20:00] VITALS: BP 118/69; PULSE 104; RESP 18; TEMP 97.4; O2SAT 99
[2017-07-09] MEDS: ATORVASTATIN 20 MG TAB PO SCH (20:26)
[2017-07-10] MEDS: LOW DOSE INSULIN NOVOLIN REGULAR SUPPLEMENTAL SCALE SQ SCH ×4 (08:00→21:00)
[2017-07-10] MEDS: clonazePAM 1 MG TAB PO SCH ×2 (09:00→20:42)
[2017-07-10] MEDS: QUEtiapine FUMARATE 300 MG TAB PO SCH ×2 (09:00→20:42)
[2017-07-10] MEDS: metFORMIN HCL 500 MG TAB PO SCH ×2 (09:00→18:29)
[2017-07-10] MEDS: CLOPIDOGREL 75 MG TAB PO SCH (09:00)
[2017-07-10] MEDS: levETIRAcetam 500 MG TAB PO SCH ×2 (09:00→20:42)
[2017-07-10] MEDS: DIVALPROEX SODIUM SPRINKLES 125 MG CAP PO SCH ×2 (09:00→20:42)
--- NOTE | 2017-07-10 16:30 | HHI.PYPN ---
Subjective Remarks Patient was seen and case discussed with nursing. Patient is irritable this morning and history per nursing. He was awoken out of sleep for this interview. Seems more interactive. Answering questions appropriately. Says he is hungry and looking forward to dinner. Alert and oriented times to Chief Complaint: Dementia with behavioral disturbance Mental Status Examination Appearance: Appropriate, Disheveled Consciousness: Alert Orientation: Person, Place Motor Activity: Other (Motor exam as above) Speech: Other (Expressive aphasia) Language: Other (Abnormal) Fund of Knowledge: Inadequate Attention and Concentration: Easily Distracted Memory: Impaired Mood: Other (?depressed, unclear) Affect: Other (constricted) Thought Process & Associations: Disorganized Thought Content: Other (not's breast) Hallucination Type: None (denies AVH) Delusion Type: None (none elicited) Suicidal Ideation: No Homicidal Ideation: No Insight: Poor Judgment: Poor Results Vitals/IOs Vital Signs Date Time Temp Pulse Resp B/P (MAP) Pulse Ox O2 Delivery O2 Flow Rate FiO2 07/09/17 20:00 97.4 104 18 118/69 (85) 99 Assessment & Plan Problem List: (1) Vascular dementia with behavioral disturbance ICD Codes: F01.51 - Vascular dementia with behavioral disturbance Assessment & Plan Trim fingernails, continue current treatment plan Justification for Cont. Inpt. Patient would decompensate in a less restrictive setting Request HC Surrog/Guard Advoc?: Yes Elian Steinberg DO Jul 10, 2017 16:30
[2017-07-10 19:37] VITALS: BP 141/79; PULSE 89; RESP 18; TEMP 97.8
[2017-07-10] MEDS: ATORVASTATIN 20 MG TAB PO SCH (20:43)
[2017-07-11 05:43] VITALS: BP 107/62; PULSE 90; RESP 17; TEMP 97.9
[2017-07-11] MEDS: LOW DOSE INSULIN NOVOLIN REGULAR SUPPLEMENTAL SCALE SQ SCH ×4 (08:00→20:42)
[2017-07-11] MEDS: CLOPIDOGREL 75 MG TAB PO SCH (08:40)
[2017-07-11] MEDS: clonazePAM 1 MG TAB PO SCH ×3 (08:41→21:00)
[2017-07-11] MEDS: QUEtiapine FUMARATE 300 MG TAB PO SCH ×3 (08:41→21:00)
[2017-07-11] MEDS: levETIRAcetam 500 MG TAB PO SCH ×3 (08:41→21:00)
[2017-07-11] MEDS: DIVALPROEX SODIUM SPRINKLES 125 MG CAP PO SCH ×3 (08:41→21:00)
[2017-07-11] MEDS: metFORMIN HCL 500 MG TAB PO SCH ×2 (08:41→18:09)
--- NOTE | 2017-07-11 15:18 | HHI.PYPN ---
Subjective Remarks Patient seen in his room with nurse Arnie and medical student corwin, patient continues alert quite a phasic. Though able to make his understanding known to us. I did suggest perhaps OT referral to see if they can assess his ability to respond with written language. Patient appears willing to try that. For now continue treatment Chief Complaint: Dementia with behavioral disturbance Review of Systems Except as stated in HPI: all other systems reviewed are Neg Mental Status Examination Appearance: Appropriate, Disheveled Consciousness: Alert Orientation: Person, Place Motor Activity: Other (Motor exam as above) Speech: Other (Expressive aphasia) Language: Other (Abnormal) Fund of Knowledge: Inadequate Attention and Concentration: Easily Distracted Memory: Impaired Mood: Other (?depressed, unclear) Affect: Other (constricted) Thought Process & Associations: Disorganized Thought Content: Other (not's breast) Hallucination Type: None (denies AVH) Delusion Type: None (none elicited) Suicidal Ideation: No Homicidal Ideation: No Insight: Poor Judgment: Poor Results Vitals/IOs Vital Signs Date Time Temp Pulse Resp B/P (MAP) Pulse Ox O2 Delivery O2 Flow Rate FiO2 07/11/17 05:43 97.9 90 17 107/62 (77) 07/09/17 20:00 99 Intake and Output 07/11/17 07/11/17 07/12/17 08:00 16:00 00:00 Intake Total 360 ml 360 ml Balance 360 ml 360 ml Assessment & Plan Problem List: (1) Vascular dementia with behavioral disturbance ICD Codes: F01.51 - Vascular dementia with behavioral disturbance Assessment & Plan Estimated LOS: days patient continues to show his confusion and a fascia. The times his responses are quite accurate. We'll get OT referral Justification for Cont. Inpt. At this time patient will decompensate of placed in a lower level of care Discharge Planning Staff continue to work on placement issues Request HC Surrog/Guard Advoc?: Yes Noah Luciano MD Jul 11, 2017 15:18
[2017-07-11 18:00] VITALS: BP 133/71; PULSE 81; RESP 16; TEMP 97.1; O2SAT 98
[2017-07-11] MEDS: ATORVASTATIN 20 MG TAB PO SCH ×2 (20:42→21:00)
[2017-07-12 06:00] VITALS: BP 115/58; PULSE 71; RESP 16; TEMP 97.7; O2SAT 96
[2017-07-12] MEDS: LOW DOSE INSULIN NOVOLIN REGULAR SUPPLEMENTAL SCALE SQ SCH ×4 (08:08→21:00)
[2017-07-12] MEDS: DIVALPROEX SODIUM SPRINKLES 125 MG CAP PO SCH ×2 (08:36→21:11)
[2017-07-12] MEDS: QUEtiapine FUMARATE 300 MG TAB PO SCH ×2 (08:36→21:11)
[2017-07-12] MEDS: clonazePAM 1 MG TAB PO SCH ×2 (08:36→21:11)
[2017-07-12] MEDS: levETIRAcetam 500 MG TAB PO SCH ×2 (08:37→21:11)
[2017-07-12] MEDS: CLOPIDOGREL 75 MG TAB PO SCH (08:37)
[2017-07-12] MEDS: metFORMIN HCL 500 MG TAB PO SCH ×2 (08:37→18:21)
--- NOTE | 2017-07-12 11:41 | HHI.PYPN ---
Subjective Remarks Patient seen in day room of floor staff, chart reviewed, patient compliant medication. Patient continues with the significant verbally fascia. Though also continues to show appropriate responses at times to questions. He is otherwise no behavioral problem. Chief Complaint: Dementia with behavioral disturbance Review of Systems Except as stated in HPI: all other systems reviewed are Neg Mental Status Examination Appearance: Appropriate, Disheveled Consciousness: Alert Orientation: Person, Place Motor Activity: Other (Motor exam as above) Speech: Other (Expressive aphasia) Language: Other (Abnormal) Fund of Knowledge: Inadequate Attention and Concentration: Easily Distracted Memory: Impaired Mood: Other (?depressed, unclear) Affect: Other (constricted) Thought Process & Associations: Disorganized Thought Content: Other (not's breast) Hallucination Type: None (denies AVH) Delusion Type: None (none elicited) Suicidal Ideation: No Homicidal Ideation: No Insight: Poor Judgment: Poor Results Vitals/IOs Vital Signs Date Time Temp Pulse Resp B/P (MAP) Pulse Ox O2 Delivery O2 Flow Rate FiO2 07/12/17 06:00 97.7 71 16 115/58 (77) 96 Intake and Output 07/12/17 07/12/17 07/12/17 07:59 15:59 23:59 Intake Total 240 ml Balance 240 ml Assessment & Plan Problem List: (1) Vascular dementia with behavioral disturbance ICD Codes: F01.51 - Vascular dementia with behavioral disturbance Assessment & Plan Estimated LOS: days patient continues somewhat confused and aphasic though no significant behavioral problems. For now continue treatment Justification for Cont. Inpt. At this time patient decompensated placed in a lower level of care Discharge Planning Placement remains problematic for this gentleman. Request HC Surrog/Guard Advoc?: Yes Noah Luciano MD Jul 12, 2017 11:41
[2017-07-12 18:00] VITALS: BP 131/72; PULSE 76; RESP 18; TEMP 97.2; O2SAT 99
[2017-07-12] MEDS: ATORVASTATIN 20 MG TAB PO SCH (21:11)
[2017-07-13 05:43] VITALS: BP 109/65; PULSE 63; RESP 18; O2SAT 98
[2017-07-13] MEDS: HALOPERIDOL 2 MG TAB PO PRN ×2 (07:10→07:20)
[2017-07-13] MEDS: HALOPERIDOL LACTATE 5 MG/ML AMP IM PRN ×2 (07:21→17:32)
[2017-07-13] MEDS: LOW DOSE INSULIN NOVOLIN REGULAR SUPPLEMENTAL SCALE SQ SCH ×4 (08:00→20:29)
[2017-07-13] MEDS: QUEtiapine FUMARATE 300 MG TAB PO SCH ×2 (09:06→20:29)
[2017-07-13] MEDS: DIVALPROEX SODIUM SPRINKLES 125 MG CAP PO SCH ×2 (09:06→20:30)
[2017-07-13] MEDS: clonazePAM 1 MG TAB PO SCH ×2 (09:07→20:29)
[2017-07-13] MEDS: levETIRAcetam 500 MG TAB PO SCH ×2 (09:07→20:29)
[2017-07-13] MEDS: metFORMIN HCL 500 MG TAB PO SCH ×2 (09:07→17:00)
[2017-07-13] MEDS: CLOPIDOGREL 75 MG TAB PO SCH (09:07)
--- NOTE | 2017-07-13 10:24 | HHI.PYPN ---
Subjective Remarks Patient seen in day room with nurse Radha and family practice resident viridiana , chart reviewed, patient compliant medications. Patient continues confused with the frustration and anger related to his significant expressive aphasia. Attend against a little bit irritable with this. But overall behaviors and is calm and no significant problems. For now continue treatment Chief Complaint: Dementia with behavioral disturbance Review of Systems Except as stated in HPI: all other systems reviewed are Neg Mental Status Examination Appearance: Appropriate, Disheveled Consciousness: Alert Orientation: Person, Place Motor Activity: Other (Motor exam as above) Speech: Other (Expressive aphasia) Language: Other (Abnormal) Fund of Knowledge: Inadequate Attention and Concentration: Easily Distracted Memory: Impaired Mood: Other (?depressed, unclear) Affect: Other (constricted) Thought Process & Associations: Disorganized Thought Content: Other (not's breast) Hallucination Type: None (denies AVH) Delusion Type: None (none elicited) Suicidal Ideation: No Homicidal Ideation: No Insight: Poor Judgment: Poor Results Vitals/IOs Vital Signs Date Time Temp Pulse Resp B/P (MAP) Pulse Ox O2 Delivery O2 Flow Rate FiO2 07/13/17 05:43 63 18 109/65 (80) 98 07/12/17 18:00 97.2 Intake and Output 07/13/17 07/13/17 07/14/17 08:00 16:00 00:00 Intake Total 240 ml Balance 240 ml Assessment & Plan Problem List: (1) Vascular dementia with behavioral disturbance ICD Codes: F01.51 - Vascular dementia with behavioral disturbance Assessment & Plan Estimated LOS: days patient continues confused demented with significant expressive aphasia, at times showing some expression of his frustration with his speech limitation. For now continue treatment Justification for Cont. Inpt. This time patient will decompensate placed in a lower level of care Discharge Planning Placement continues to be problematic related to funding issues Request HC Surrog/Guard Advoc?: Yes Noah Luciano MD Jul 13, 2017 10:24
[2017-07-13 18:41] VITALS: BP 144/77; PULSE 63; RESP 17; TEMP 97.8; O2SAT 98
[2017-07-13] MEDS: ATORVASTATIN 20 MG TAB PO SCH (20:29)
[2017-07-14 06:26] VITALS: BP 103/59; PULSE 93; RESP 16; TEMP 97.8; O2SAT 99
[2017-07-14] MEDS: LOW DOSE INSULIN NOVOLIN REGULAR SUPPLEMENTAL SCALE SQ SCH ×4 (08:00→21:00)
[2017-07-14] MEDS: levETIRAcetam 500 MG TAB PO SCH ×2 (09:15→21:04)
[2017-07-14] MEDS: metFORMIN HCL 500 MG TAB PO SCH ×2 (09:15→18:00)
[2017-07-14] MEDS: DIVALPROEX SODIUM SPRINKLES 125 MG CAP PO SCH ×2 (09:15→21:04)
[2017-07-14] MEDS: CLOPIDOGREL 75 MG TAB PO SCH (09:15)
[2017-07-14] MEDS: QUEtiapine FUMARATE 300 MG TAB PO SCH ×2 (09:15→21:04)
[2017-07-14] MEDS: clonazePAM 1 MG TAB PO SCH ×2 (09:15→21:03)
--- NOTE | 2017-07-14 10:35 | HHI.PYPN ---
Subjective Chief Complaint: Dementia with behavioral disturbance Remarks Patient seen in day room with floor staff, chart review, patient compliant medication. Patient continues confused demented first fitted irritable at times labile related to his expressive aphasia. Placement remains problematic. For now continue treatment Review of Systems Except as stated in HPI: all other systems reviewed are Neg Mental Status Examination Appearance: Appropriate, Disheveled Consciousness: Alert Orientation: Person, Place Motor Activity: Other (Motor exam as above) Speech: Other (Expressive aphasia) Language: Other (Abnormal) Fund of Knowledge: Inadequate Attention and Concentration: Easily Distracted Memory: Impaired Mood: Other (?depressed, unclear) Affect: Other (constricted) Thought Process & Associations: Disorganized Thought Content: Other (not's breast) Hallucination Type: None (denies AVH) Delusion Type: None (none elicited) Suicidal Ideation: No Homicidal Ideation: No Insight: Poor Judgment: Poor Results Vitals/IOs Vital Signs Date Time Temp Pulse Resp B/P (MAP) Pulse Ox O2 Delivery O2 Flow Rate FiO2 07/14/17 06:26 97.8 93 16 103/59 (74) 99 Intake and Output 07/14/17 07/14/17 07/15/17 08:00 16:00 00:00 Intake Total 0 ml Balance 0 ml Assessment & Plan Problem List: (1) Vascular dementia with behavioral disturbance ICD Codes: F01.51 - Vascular dementia with behavioral disturbance Assessment & Plan Estimated LOS: days patient continues confused demented with significant expressive aphasia. Justification for Cont. Inpt. At this time patient will decompensate with no place to appropriate level of care Discharge Planning Placement remains problematic. Need to find appropriate placement Request HC Surrog/Guard Advoc?: Yes Noah Luciano MD Jul 14, 2017 10:35
[2017-07-14] MEDS: HALOPERIDOL LACTATE 5 MG/ML AMP IM PRN (15:00)
[2017-07-14 18:10] VITALS: BP 142/79; PULSE 104; RESP 18; TEMP 97.7; O2SAT 98
[2017-07-14] MEDS: HALOPERIDOL 2 MG TAB PO PRN (21:04)
[2017-07-14] MEDS: ATORVASTATIN 20 MG TAB PO SCH (21:04)
[2017-07-15 06:53] VITALS: BP 143/68; PULSE 84; RESP 17; TEMP 98.2; O2SAT 97
[2017-07-15] MEDS: LOW DOSE INSULIN NOVOLIN REGULAR SUPPLEMENTAL SCALE SQ SCH ×3 (08:00→17:00)
[2017-07-15] MEDS: QUEtiapine FUMARATE 300 MG TAB PO SCH (08:10)
[2017-07-15] MEDS: DIVALPROEX SODIUM SPRINKLES 125 MG CAP PO SCH (08:10)
[2017-07-15] MEDS: clonazePAM 1 MG TAB PO SCH (08:10)
[2017-07-15] MEDS: CLOPIDOGREL 75 MG TAB PO SCH (08:11)
[2017-07-15] MEDS: levETIRAcetam 500 MG TAB PO SCH (08:11)
[2017-07-15] MEDS: metFORMIN HCL 500 MG TAB PO SCH ×2 (08:11→17:22)
[2017-07-15] MEDS ORDERED: DIVA125C PO (14:11)
[2017-07-15] MEDS ORDERED: LEVE500 PO (14:11)
[2017-07-15] MEDS ORDERED: ATOR20TA15 PO (14:11)
[2017-07-15] MEDS ORDERED: CLON1 PO (14:11)
[2017-07-15] MEDS ORDERED: METF500 PO (14:11)
[2017-07-15] MEDS ORDERED: PLAV75TA29 PO (14:11)
[2017-07-15] MEDS ORDERED: QUET1TAB10 PO (14:11)
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
== END 2017-07-15 18:45 | DRG 884 ==
LOC: H250 14:16
PROVIDERS: ADMIT Psychiatry & Neurology Psychiatry; ATTEND Psychiatry & Neurology Psychiatry
DX: F01.51 Vascular dementia, unspecified severity, with behavioral disturbance (principal); I69.351 Hemiplegia and hemiparesis following cerebral infarction affecting right dominant side; I69.320 Aphasia following cerebral infarction; I10 Essential (primary) hypertension; E78.5 Hyperlipidemia, unspecified; E11.9 Type 2 diabetes mellitus without complications; Z79.84 Long term (current) use of oral hypoglycemic drugs; Z79.4 Long term (current) use of insulin; B19.20 Unspecified viral hepatitis C without hepatic coma
CPT/HCPCS: 80164; 82140; 82948; 93005; 96372; G0378; J1630; J2060